=== PATIENT | female | born 1955 | race Caucasian/White ===

== ENCOUNTER 2018-08-08 17:16 | Emergency (ER) | payer OTHER ==
--- NOTE | 2018-08-08 17:42 | PDOC ---
Rapid Medical Evaluation Chief Complaint: Urinary Problem Time Seen by Provider: 08/08/18 17:40 Medical Evaluation: 08/08/18 17:41 I have performed a brief in-person evaluation of this patient. The patient presents with a CC of: dysuria HPI: Pt is a 62 YO female who complains of dysuria x 3 days. Denies hx of UTIs. Pertinent PE: Skin: Clear Lungs: Clear Heart: RRR Abd: Soft nontender MS. Moves all extremities Neuro: Alert Psych: Age appropriate. I have ordered the following: UA and UC The patient will proceed to [facility] for further evaluation. Discharge Disposition - Diagnosis Urinary tract infection Qualifiers: Urinary tract infection type: site unspecified Hematuria presence: without hematuria Qualified Code(s): N39.0 - Urinary tract infection, site not specified - Referrals - Patient Instructions - Post Discharge Activity
[2018-08-08 17:52] VITALS: BP 133/81; PULSE 74; TEMP 99.4; BMI 31.9
[2018-08-08] MEDS ORDERED: PHENAZOPYRIDINE HCL 100 MG TABLET (FP) PO ONE (18:13)
[2018-08-08] MEDS ORDERED: PHENAZOPYRIDINE HCL 100 MG TABLET (FP) ONE (18:15)
--- NOTE | 2018-08-08 18:19 | PDOC ---
History of Present Illness - General Chief Complaint: Urinary Problem Stated Complaint: URINARY PROBLEM Time Seen by Provider: 08/08/18 17:40 History Source: Patient Exam Limitations: Clinical Condition - History of Present Illness Initial Comments: 08/08/18 18:13 Patient with history of hypertension, hypothyroidism and hepatitis present with complaint of three-day history of urinary frequency, burning with urination and urgency. Patient also requests refill of her medication as she just moved from [place] of town and does not have a PCP to fill her home medication. Patient denies fever, chills, back pain, nausea or vomiting Timing/Duration: other (3 days) Past History - Past Medical History Allergies/Adverse Reactions: Allergies Allergy/AdvReac Type Severity Reaction Status Date / Time aspirin Allergy Verified 08/08/18 17:41 Penicillins Allergy Verified 08/08/18 17:41 Home Medications: Ambulatory Orders Amlodipine Besylate [Norvasc -] 5 mg PO DAILY #60 tablet 08/08/18 Azathioprine [Imuran] 50 mg PO DAILY 1 Days #60 tablet 08/08/18 Ciprofloxacin HCl [Cipro] 500 mg PO BID 5 Days #10 tablet 08/08/18 Levothyroxine [Synthroid -] 75 mcg PO DAILY 1 Days #30 tablet 08/08/18 Losartan/Hydrochlorothiazide [Losartan-Hctz 100-25 mg Tab] 1 each PO DAILY 1 Days #60 tablet 08/08/18 Metoprolol Succinate [Toprol Xl] 200 mg PO DAILY 1 Days #60 tab.er.24h 08/08/18 Phenazopyridine HCl [Pyridium] 100 mg PO TID 2 Days #6 tablet 08/08/18 - Suicide/Smoking/Psychosocial Hx Smoking History: Never smoked Review of Systems - Review of Systems Able to Perform ROS?: Yes Is the patient limited Swedish proficient: No Constitutional: No: Chills, Fever HEENTM: No: Symptoms Reported Respiratory: No: Symptoms reported Cardiac (ROS): No: Symptoms Reported ABD/GI: No: Symptoms Reported, Nausea, Vomiting : Yes: See HPI, Burning, Dysuria, Frequency, Urgency. No: Flank Pain, Hematuria, Incontinence Musculoskeletal: No: Back Pain All Other Systems: Reviewed and Negative *Physical Exam - Vital Signs Last Vital Signs Temp Pulse Resp BP Pulse Ox 99.4 F 74 19 133/81 96 08/08/18 17:41 08/08/18 17:41 08/08/18 17:41 08/08/18 17:41 08/08/18 17:41 - Physical Exam General Appearance: Yes: Nourished, Appropriately Dressed. No: Apparent Distress HEENT: positive: Normal ENT Inspection Neck: positive: Supple Respiratory/Chest: positive: Lungs Clear. negative: Respiratory Distress, Accessory Muscle Use Cardiovascular: positive: Regular Rhythm, Regular Rate Gastrointestinal/Abdominal: positive: Flat, Soft. negative: Organomegaly Musculoskeletal: positive: Normal Inspection. negative: CVA Tenderness Extremity: positive: Normal Inspection Integumentary: positive: Normal Color Neurologic: positive: Fully Oriented, Normal Mood/Affect, Normal Response Moderate Sedation - Procedure Monitoring Vital Signs: Procedure Monitoring Vital Signs Temperature 99.4 F 08/08/18 17:41 Pulse Rate 74 08/08/18 17:41 Respiratory Rate 19 08/08/18 17:41 Blood Pressure 133/81 08/08/18 17:41 O2 Sat by Pulse Oximetry (%) 96 08/08/18 17:41 Medical Decision Making - Medical Decision Making 08/08/18 18:17 Patient present with complaint of three-day history of urinary frequency, dysuria, urgency and burning with urination. Patient also requests refill of her home medication clinical exam unremarkable. UA/ Ucx sent. Patient afebrile 08/08/18 19:24 UA shows no acute findings except ketones. patient will be discharged home on cipro and pyridium pending urine culture. Rx for home meds also sent and referral for PCP given to patient to establish care *DC/Admit/Observation/Transfer Diagnosis at time of Disposition: Encounter for medication refill Urinary tract infection Qualifiers: Urinary tract infection type: site unspecified Hematuria presence: without hematuria Qualified Code(s): N39.0 - Urinary tract infection, site not specified - Discharge Dispostion Disposition: HOME Condition at time of disposition: Stable Decision to Admit order: No - Prescriptions Prescriptions: Amlodipine Besylate [Norvasc -] 5 mg PO DAILY #60 tablet Azathioprine [Imuran] 50 mg PO DAILY 1 Days #60 tablet Ciprofloxacin HCl [Cipro] 500 mg PO BID 5 Days #10 tablet Levothyroxine [Synthroid -] 75 mcg PO DAILY 1 Days #30 tablet Losartan/Hydrochlorothiazide [Losartan-Hctz 100-25 mg Tab] 1 each PO DAILY 1 Days #60 tablet Metoprolol Succinate [Toprol Xl] 200 mg PO DAILY 1 Days #60 tab.er.24h Phenazopyridine HCl [Pyridium] 100 mg PO TID 2 Days #6 tablet - Referrals Referrals: Katie Malone MD [Staff Physician] - - Patient Instructions Printed Discharge Instructions: DI for Urinary Tract Infection (UTI) Additional Instructions: take medications as prescribed. increase fluid intake. follow-up with referred PCP to establish care - Post Discharge Activity
[2018-08-08 18:38] LABS: URINE APPEARANCE CLEAR; URINE BILIRUBIN NEGATIVE (<2.0 mg/dL); URINE COLOR DKYELLOW; URINE GLUCOSE (UA) NEGATIVE (NEGATIVE); URINE KETONE TRACE (NEGATIVE); URINE LEUK ESTERASE NEGATIVE (NEGATIVE); URINE NITRITE NEGATIVE (NEGATIVE); URINE PROTEIN 2+ (NEGATIVE)
[2018-08-08 18:40] LABS: EPI CELLS RARE /HPF (FEW); URINE HYALINE CAST 11 /lpf; URINE MUCUS RARE
== END 2018-08-08 19:45 | disposition home or self-care (01) ==
LOC: JERFT 17:16 → JER 17:16 → JERFT 19:45
DX: N39.0 Urinary tract infection, site not specified (principal); I10 Essential (primary) hypertension; E03.9 Hypothyroidism, unspecified; K75.9 Inflammatory liver disease, unspecified
CPT/HCPCS: 81003; 81015; 87086; 99281-25

== ENCOUNTER 2018-12-31 09:31 | Emergency (ER) | payer OTHER ==
[2018-12-31 09:44] VITALS: TEMP 97.9; BMI 30.6
[2018-12-31] MEDS ORDERED: ONDANSETRON 4 MG/2 ML VIAL IVPUSH ONE (10:40)
[2018-12-31] MEDS ORDERED: FAMOTIDINE 20 MG/50 ML IVPB 20 MG/50 ML MG IVPB ONE ×2 (10:40→10:54)
[2018-12-31] MEDS ORDERED: SODIUM CHLORIDE 1,000 ML IV STA (10:41)
--- NOTE | 2018-12-31 10:41 | PDOC ---
History of Present Illness - General Chief Complaint: Nausea/Vomiting Stated Complaint: VOMITING Time Seen by Provider: 12/31/18 10:32 History Source: Patient - History of Present Illness Initial Comments: 12/31/18 11:03 63f with pmh of hypertension, hypothyroidism, cholecysteectomy, hysterectomy, GERD and recent liver inflammation presents to the ED with numerous episodes of vomiting and epigastric pain since 5pm, yesterday. The pain is sharp and radiates bilaterally along her ribs. She tried to take her omeprazole this morning but couldn't keep it down. Denies dysuria, contipation, diarrhea, shortness of breath, fever. Past History - Past Medical History Allergies/Adverse Reactions: Allergies Allergy/AdvReac Type Severity Reaction Status Date / Time aspirin Allergy Verified 12/31/18 09:41 Penicillins Allergy Verified 12/31/18 09:41 Home Medications: Ambulatory Orders Levothyroxine [Synthroid -] 75 mcg PO DAILY 1 Days #30 tablet 08/08/18 Azathioprine [Imuran] 200 mg PO DAILY 12/31/18 Ciprofloxacin [Cipro -] 500 mg PO Q12H 7 Days #14 tablet 12/31/18 Fluticasone Propionate [Flonase Allergy Relief] 1 ml IH BID 12/31/18 Lisinopril 10 mg PO DAILY 12/31/18 Metoprolol Succinate [Toprol Xl] 100 mg PO BID 12/31/18 Omeprazole 20 mg PO BID 12/31/18 metroNIDAZOLE [Metronidazole] 500 mg PO BID 7 Days #14 tablet 12/31/18 CVA: No COPD: No CHF: No DVT: No - Immunization History Immunization Up to Date: Yes - Suicide/Smoking/Psychosocial Hx Smoking History: Never smoked Information on smoking cessation initiated: No Hx Alcohol Use: No Drug/Substance Use Hx: No Review of Systems - Review of Systems Able to Perform ROS?: Yes Is the patient limited Latvian proficient: No Constitutional: No: Symptoms Reported HEENTM: No: Symptoms Reported Respiratory: No: Symptoms reported Cardiac (ROS): No: Symptoms Reported ABD/GI: Yes: See HPI : No: Symptoms Reported Musculoskeletal: No: Symptoms Reported *Physical Exam - Vital Signs Last Vital Signs Temp Pulse Resp BP Pulse Ox 97.9 F 98 H 17 103/81 97 12/31/18 09:41 12/31/18 09:41 12/31/18 09:41 12/31/18 09:41 12/31/18 09:41 - Physical Exam General Appearance: Yes: Nourished, Appropriately Dressed, Mild Distress HEENT: positive: EOMI, MARISEL, Normal ENT Inspection Respiratory/Chest: positive: Lungs Clear, Normal Breath Sounds. negative: Chest Tender, Respiratory Distress Cardiovascular: positive: Regular Rhythm, Regular Rate, S1, S2 Gastrointestinal/Abdominal: positive: Normal Bowel Sounds, Tender (epigastric tenderness), Guarding. negative: Rebound Musculoskeletal: positive: Normal Inspection. negative: CVA Tenderness Extremity: positive: Normal Capillary Refill, Normal Inspection, Normal Range of Motion Integumentary: positive: Normal Color, Dry, Warm. negative: Jaundice Neurologic: positive: Fully Oriented, Alert, Normal Mood/Affect, Normal Response , Motor Strength 01/06 ED Treatment Course - LABORATORY CBC & Chemistry Diagram: 12/31/18 11:12 12/31/18 11:12 Medical Decision Making - Medical Decision Making 12/31/18 11:13 63 with epigastric pain and vomiting. GERd/dyspepsia vs LA vs PE vs SBO Patient has history of GERD and decribe the pain as sharp and burning although she doesn';t usually presents with those symptoms. Will get labs and start patient on fluids and pepcid. In addition we will need to rule out inferior LA with ekg and trops. Low suspicion for PE due to low wells score criteria. Will r/o sbo with ct abdomen and pelvis 12/31/18 12:17 EKG: Normal sinus rhythm, left anterior fascicular block, possible anterolateral infarct, age undetermined. 12/31/18 15:16 Ct abdomen pelvis: ascites presents, inflammation of the liver and thickening/ inflamation of the small bowel significant for colitis. Spoke to machine precision etcher for Dr. Navarro who recommended Patient feel better on reexamination. ok to go home. treating the colitis with abx outpatient. Will see the patient in the office. She is to call to make appointment. *DC/Admit/Observation/Transfer Diagnosis at time of Disposition: Colitis - Discharge Dispostion Disposition: HOME Condition at time of disposition: Improved Decision to Admit order: No - Prescriptions Prescriptions: Ciprofloxacin [Cipro -] 500 mg PO Q12H 7 Days #14 tablet metroNIDAZOLE [Metronidazole] 500 mg PO BID 7 Days #14 tablet - Referrals Referrals: Hector Guevara MD [Primary Care Provider] - Mario Navarro DO [Staff Physician] - - Patient Instructions Printed Discharge Instructions: DI for Colitis Additional Instructions: Follow up with your technician assistant Dr. Navarro. Call for an appointment tomorrow within one to two weeks. Come back to the emergency department for any new, worsening or concerning symptoms. Print Language: MOHAWK - Post Discharge Activity
[2018-12-31] MEDS ORDERED: ONDANSETRON 4 MG/2 ML VIAL ONE (10:54)
--- NOTE | 2018-12-31 10:54 | PDOC ---
Documentation entered by Benjamin Guzman SCRIBE, acting as scribe for Chace Méndez MD. Chace Méndez MD: This documentation has been prepared by the Thomas charlton Nirvannie, SCRIBE, under my direction and personally reviewed by me in its entirety. I confirm that the documentation accurately reflects all work, treatment, procedures, and medical decision making performed by me. Attending Attestation - Resident Resident Name: Jered Vanessa - ED Attending Attestation I have performed the following: I have examined & evaluated the patient, The case was reviewed & discussed with the resident, I agree w/resident's findings & plan - HPI HPI: 12/31/18 11:07 CC: Abdominal pain with nausea and vomiting. HPI: The patient is a 63 year old female, with a significant past medical history of hypertension, hypothyroidism and hepatitis, who presents to the emergency department with, 1.5 days of epigastric pain with associated nausea and vomiting. As per patient, her symptoms onset yesterday at 5pm and is described a 9/10, waxing and waning pain. She denies recent fevers, chills, headache or dizziness. She denies recent diarrhea or constipation. She denies recent dysuria, frequency, urgency or hematuria. She denies recent chest pain or shortness of breath. Allergies: Aspirins, penicillins. Past surgical history: Cholecystectomy and hysterectomy. Primary Care Physician: Dr. Hector Guevara GI: Dr. Navarro - Physicial Exam PE: 12/31/18 11:07 Vitals: Triage vital signs reviewed General Appearance: No acute distress, well nourished, well developed Head: Atraumatic Neck: Supple; No nuchal rigidity Chest Wall: Nontender Cardiac: Regular rate and rhythm, no murmurs, no rubs, no gallops Lungs: Clear to auscultation bilateral, good air movement bilaterally Abdomen: +Diffuse upper abdominal tenderness. Soft, nondistended. Genitourinary: Exam deferred Rectal: Exam deferred Extremities: Full range of motion to all extremities, no cyanosis, clubbing, or edema Skin: Warm and dry, no rashes or lesions, no rash, no petechiae Neuro: AOX3; Cranial Nerves 2-12 grossly intact, Strength intact to all extremities, Sensation intact to all extremities, gait normal Psych: Normal mood, normal affect - Medical Decision Making 12/31/18 11:13 63 year old female, with a significant past medical history of hypertension, hypothyroidism and hepatitis, who presents to the emergency department with, 1.5 days of epigastric pain with associated nausea and vomiting. Plan is to: Labs EKG Urine CT Abdomen Fluids Pain medication Anti-nausea medication 12/31/18 17:38 Reevaluation patient feels much better now tolerating fluids by mouth CAT scan demonstrates colitis We'll discharge home with Mili Zuñiga patient will follow up with gastroenterology within 1 week Findings, the need for follow-up and strict return instructions discussed patient.
[2018-12-31] MEDS ORDERED: ACETAMINOPHEN 1000 MG/100 ML VIAL (NON FORMULARY) IVPB ONE (11:02)
[2018-12-31 11:31] LABS: BASO % 0.7 % (0-2.0); EOS % 0.1 % (0-4.5); HEMATOCRIT 46.5 % (32.4-45.2); HEMOGLOBIN 16.1 GM/dL (10.7-15.3); LYMPH % 13.7 % (8-40); MCH 31.1 pg (25.7-33.7); MCHC 34.7 g/dl (32.0-36.0); MEAN CELL VOLUME 89.8 fl (80-96); MEAN PLT VOLUME 8.7 fl (7.5-11.1); MONO % 6.5 % (3.8-10.2); PLATELET COUNT 362 K/MM3 (134-434); RBC 5.18 M/mm3 (3.60-5.2); RDW 14.9 % (11.6-15.6); WHITE BLOOD COUNT 10.6 K/mm3 (4.0-10.0)
[2018-12-31] MEDS ORDERED: ACETAMINOPHEN INJECTION 100 ML IVPB ONE (11:37)
[2018-12-31 11:50] VITALS: BP 125/80; PULSE 80
[2018-12-31 12:21] LABS: ALBUMIN 3.6 g/dl (3.4-5.0); ALK PHOS 91 U/L (45-117); ANION GAP 9 MMOL/L (8-16); BILIRUBIN,TOTAL 1.3 mg/dL (0.2-1); BLOOD UREA NITROGEN 14 mg/dL (7-18); CALCIUM 9.8 mg/dL (8.5-10.1); CHLORIDE 103 mmol/L (98-107); CO2 24 mmol/L (21-32); CREATININE 0.7 mg/dL (0.55-1.3); GLUCOSE,RANDOM 106 mg/dL (74-106); LIPASE 124 U/L (73-393); POTASSIUM 4.2 mmol/L (3.5-5.1); SGOT/AST 56 U/L (15-37); SGPT/ALT 59 U/L (13-61); SODIUM 136 mmol/L (136-145); TOT PROT 8.4 g/dl (6.4-8.2)
--- NOTE | 2019-01-01 14:34 | EKG ---
Test Reason : Blood Pressure : / mmHG Vent. Rate : 088 BPM Atrial Rate : 088 BPM P-R Int : 154 ms QRS Dur : 086 ms QT Int : 402 ms P-R-T Axes : 038 -46 045 degrees QTc Int : 486 ms NORMAL SINUS RHYTHM LEFT ANTERIOR FASCICULAR BLOCK POSSIBLE ANTEROLATERAL INFARCT , AGE UNDETERMINED ABNORMAL ECG NO PREVIOUS ECGS AVAILABLE Confirmed by MD KIA, FARHANA ([id number]) on 01/01/2019 2:33:59 PM Referred By: Confirmed By:FARHANA ADAM MD
== END 2018-12-31 15:38 | disposition home or self-care (01) ==
LOC: JER 09:31
PROC: 3E0337Z Introduction of Electrolytic and Water Balance Substance into Peripheral Vein, Percutaneous Approach (ICD-10-PCS; principal; 2018-12-31)
PROC: 3E033GC Introduction of Other Therapeutic Substance into Peripheral Vein, Percutaneous Approach (ICD-10-PCS; 2018-12-31)
PROC: 3E033NZ Introduction of Analgesics, Hypnotics, Sedatives into Peripheral Vein, Percutaneous Approach (ICD-10-PCS; 2018-12-31)
PROC: 3E033GC Introduction of Other Therapeutic Substance into Peripheral Vein, Percutaneous Approach (ICD-10-PCS; 2018-12-31)
DX: K52.9 Noninfective gastroenteritis and colitis, unspecified (principal); K21.9 Gastro-esophageal reflux disease without esophagitis; I10 Essential (primary) hypertension; E03.9 Hypothyroidism, unspecified; K75.9 Inflammatory liver disease, unspecified; Z88.0 Allergy status to penicillin; Z88.6 Allergy status to analgesic agent
CPT/HCPCS: 36415; 74177-TC; 80053; 83690; 84484; 85025; 93005; 93010; 96361; 96365; 96375; 99284-25; J0131; J7030

== ENCOUNTER 2019-02-28 13:46 | Emergency (ER) | payer OTHER ==
[2019-02-28] MEDS ORDERED: DIPHTH,PERTUSS(ACELL),TET 0.5 ML DISP.SYRIN IM ONE ×2 (13:51→14:03)
--- NOTE | 2019-02-28 13:54 | PDOC ---
Rapid Medical Evaluation Chief Complaint: Pain Time Seen by Provider: 02/28/19 13:49 Medical Evaluation: Allergies Allergy/AdvReac Type Severity Reaction Status Date / Time aspirin Allergy Verified 12/31/18 09:41 Penicillins Allergy Verified 12/31/18 09:41 02/28/19 13:49 I have performed a brief in-person evaluation of this patient. The patient presents with a chief complaint of: struck right great toe on metal door Pertinent physical exam findings: toenail avulsed. able to bend I have ordered the following: Xray great toe / Boostrix The patient will proceed to the ED for further evaluation. 02/28/19 13:52 02/28/19 13:53 Discharge Disposition - Diagnosis Toe injury - Referrals - Patient Instructions - Post Discharge Activity
[2019-02-28 13:56] VITALS: BP 187/97; PULSE 64; TEMP 97.8; BMI 30.1
--- NOTE | 2019-02-28 14:42 | PDOC ---
History of Present Illness - General Chief Complaint: Pain Stated Complaint: INJURY Time Seen by Provider: 02/28/19 13:49 History Source: Patient - History of Present Illness Initial Comments: 02/28/19 14:42 63 year old female c/o right great toe nail partial avulsion , report stubbing the toe on the door. seen by pcp and was given cephalexin today. [facility]. no pmhx tetanus not up to date/ Past History - Past Medical History Allergies/Adverse Reactions: Allergies Allergy/AdvReac Type Severity Reaction Status Date / Time aspirin Allergy Verified 02/28/19 13:51 Penicillins Allergy Verified 02/28/19 13:51 Home Medications: Ambulatory Orders Levothyroxine [Synthroid -] 75 mcg PO DAILY 1 Days #30 tablet 08/08/18 Azathioprine [Imuran] 200 mg PO DAILY 12/31/18 Ciprofloxacin [Cipro -] 500 mg PO Q12H 7 Days #14 tablet 12/31/18 Fluticasone Propionate [Flonase Allergy Relief] 1 ml IH BID 12/31/18 Lisinopril 10 mg PO DAILY 12/31/18 Metoprolol Succinate [Toprol Xl] 100 mg PO BID 12/31/18 Omeprazole 20 mg PO BID 12/31/18 metroNIDAZOLE [Metronidazole] 500 mg PO BID 7 Days #14 tablet 12/31/18 Bacitracin - [Bacitracin Topical Ointment -] 1 applic TP BID #1 tube 02/28/19 CVA: No COPD: No CHF: No DVT: No - Immunization History Immunization Up to Date: Yes - Suicide/Smoking/Psychosocial Hx Smoking History: Never smoked Information on smoking cessation initiated: No Hx Alcohol Use: No Drug/Substance Use Hx: No Review of Systems - Review of Systems Able to Perform ROS?: Yes Is the patient limited Serbian proficient: No Constitutional: No: Symptoms Reported, See HPI, Chills, Diaphoresis, Fever, Loss of Appetite, Malaise, Night Sweats, Weakness, Weight Stable, Unintentional Wgt. Loss, Unexplained wgt Loss, Other *Physical Exam - Vital Signs Last Vital Signs Temp Pulse Resp BP Pulse Ox 97.8 F 64 17 187/97 H 96 02/28/19 13:51 02/28/19 13:51 02/28/19 13:51 02/28/19 13:51 02/28/19 13:51 - Physical Exam General Appearance: Yes: Appropriately Dressed Gastrointestinal/Abdominal: positive: Soft. negative: Tender Extremity: positive: Normal Capillary Refill, Normal Inspection, Normal Range of Motion, Other (+ partial nail avulsion of the great toe. ) Integumentary: positive: Normal Color, Dry, Warm Neurologic: positive: Fully Oriented, Alert, Normal Mood/Affect ED Treatment Course - Medications Given in the ED: ED Medications Discontinued Medications Generic Name Dose Route Start Last Admin Trade Name Freq PRN Reason Stop Dose Admin Diphtheria/Tetanus/Acell Pertussis 0.5 ml 02/28/19 13:51 02/28/19 14:05 Boostrix - IM 02/28/19 13:52 0.5 ml ONCE ONE Administration Progress Note - Progress Note Progress Note: A: toe nail avulsion injury P: xray boostrix bacitracin order tracer follow up *DC/Admit/Observation/Transfer Diagnosis at time of Disposition: Toe injury Qualifiers: Encounter type: initial encounter Laterality: right Qualified Code(s): S99.921A - Unspecified injury of right foot, initial encounter - Discharge Dispostion Disposition: HOME - Prescriptions Prescriptions: Bacitracin - [Bacitracin Topical Ointment -] 1 applic TP BID #1 tube - Referrals Referrals: Jeff Brambila MD [Staff Physician] - 24 hours Joe Toussaint DPM [Staff Physician] - 24 hours - Patient Instructions Printed Discharge Instructions: DI for Nail Avulsion Injury Additional Instructions: apply bacitracin to the nail twice a day. continue cephalexin as prescribed by your doctor follow up with a order tracer as soon as possible. - Post Discharge Activity Forms/Work/School Notes: Back to Work
== END 2019-02-28 15:05 | disposition home or self-care (01) ==
LOC: JERFT 13:46
PROC: 3E0234Z Introduction of Serum, Toxoid and Vaccine into Muscle, Percutaneous Approach (ICD-10-PCS; principal; 2019-02-28)
DX: S91.201A Unspecified open wound of right great toe with damage to nail, initial encounter (principal); W22.8XXA Striking against or struck by other objects, initial encounter; Y93.89 Activity, other specified; Y92.89 Other specified places as the place of occurrence of the external cause; Y99.8 Other external cause status
CPT/HCPCS: 73660-TC-FY; 90715; 99281-25

== ENCOUNTER 2020-06-01 10:24 | Emergency (ER) | payer OTHER ==
[2020-06-01 10:35] VITALS: TEMP 97.4; BMI 27.4
--- NOTE | 2020-06-01 10:51 | PDOC ---
History of Present Illness - General Chief Complaint: Pain, Acute Stated Complaint: ABD PAIN/DIARRHEA Time Seen by Provider: 06/01/20 11:00 History Source: Patient Exam Limitations: No Limitations - History of Present Illness Initial Comments: 06/01/20 11:36 64 y.o. taiwanese speaking F PMHx HTN, hypothyridism, GERD, SLE, cholecystectomy, hysterectomy presenting due to abdominal pain onset yesterday. Patient states she has been having 4-5 episodes of diarrhea daily. Pt normally has diarrhea but it has increased in frequency. Pt. stated the pain is located in the center of the abdomen and radiates to her back, she came in today due to her stools turning black this morning. She feels nauseas and dizzy but denies chest pain, SOB, headache, vomiting. Pt states she took pepto bismol yesterday but it provided little relief. Pt had a recent endosopy that had 7 polyps cauterized. Wellness Assistant # [id number] PCP: Dr. colon PMHx: HTN, hypothyridism, GERD, SLE PSH: cholecystectomy, hysterectomy Meds: In Chart Allergies: Asprin, Penecillin Is this a multiple visit Asthma Patient?: No Timing/Duration: 24 hours Past History - Medical History Allergies/Adverse Reactions: Allergies Allergy/AdvReac Type Severity Reaction Status Date / Time aspirin Allergy Verified 06/01/20 10:29 Penicillins Allergy Verified 06/01/20 10:29 Home Medications: Ambulatory Orders Levothyroxine [Synthroid -] 75 mcg PO DAILY 1 Days #30 tablet 08/08/18 Azathioprine [Imuran] 200 mg PO DAILY 12/31/18 Albuterol Sulfate Inhaler - [Ventolin Hfa Inhaler -] 1 - 2 inh PO Q4H PRN 06/01/20 Bismuth Subsalicylate [Pepto-Bismol -] 524 mg PO ONCE 06/01/20 Hydroxychloroquine So4 [Plaquenil -] 200 mg PO BID 06/01/20 Lisinopril/Hydrochlorothiazide [Lisinopril-Hctz 20-25 mg Tab] 1 each PO DAILY 06/01/20 Metoprolol Tartrate [Lopressor -] 25 mg PO BID 06/01/20 Pantoprazole Sodium [Protonix -] 40 mg PO DAILY 06/01/20 CVA: No COPD: No CHF: No DVT: No Liver Disease: Yes Other medical history: LUPUS, - Immunization History Immunization Up to Date: Yes - Psycho-Social/Smoking History Smoking History: Never smoked - Substance Abuse Hx (Audit-C & DAST Scrn) How often the patient has a drink containing alcohol: Never Score: In Men: 4 or > Positive; In Women: 3 or > Positive: 0 Screen Result (Pos requires Nsg. Audit-10AR): Negative In the last yr the pt used illegal drug/Rx for NonMed reason: No Score: Yes response is considered Positive: 0 Screen Result (Positive result requires Nsg. DAST-10): Negative Review of Systems - Review of Systems Able to Perform ROS?: Yes Is the patient limited Kyrgyz proficient: Yes Constitutional: No: Chills, Fever HEENTM: No: Blurred Vision, Double Vision Respiratory: No: Cough, Shortness of Breath Cardiac (ROS): No: Chest Pain, Lightheadedness ABD/GI: Yes: Diarrhea, Nausea, Poor Appetite. No: Constipated, Vomiting : No: Burning, Dysuria Musculoskeletal: No: Back Pain, Muscle Weakness Integumentary: No: Dryness, Erythema Neurological: Yes: Dizziness. No: Headache, Numbness, Tingling Hematologic/Lymphatic: No: Easy Bleeding, Easy Bruising *Physical Exam - Vital Signs Last Vital Signs Temp Pulse Resp BP Pulse Ox 97.4 F L 82 18 166/88 100 06/01/20 10:29 06/01/20 10:29 06/01/20 10:29 06/01/20 10:06/01/20 10:29 - Physical Exam General Appearance: Yes: Nourished, Appropriately Dressed. No: Apparent Distress Respiratory/Chest: positive: Lungs Clear, Normal Breath Sounds. negative: Chest Tender, Respiratory Distress, Accessory Muscle Use, Crackles, Rales, Stridor, Wheezing Cardiovascular: positive: Regular Rhythm, Regular Rate. negative: JVD, Murmur Gastrointestinal/Abdominal: positive: Normal Bowel Sounds, Tender, Flat, Soft, Tenderness (midepigastic). negative: Organomegaly, Pulsatile Mass, Guarding, Rebound Rectal Exam: positive: normal exam, normal rectal tone Musculoskeletal: positive: Normal Inspection. negative: CVA Tenderness Integumentary: positive: Normal Color, Dry, Warm Neurologic: positive: Fully Oriented, Alert, Normal Mood/Affect, Normal Response ED Treatment Course - LABORATORY CBC & Chemistry Diagram: 06/01/20 11:30 06/01/20 11:30 Medical Decision Making - Medical Decision Making 06/01/20 11:43 64 y.o. taiwanese speaking F PMHx HTN, hypothyridism, GERD, SLE, cholecystectomy, hysterectomy presenting due to abdominal pain. DDx: fat malabsorption, viral/enteric pathogen, pancreatitis, gastritis, CO Labs: WBC 3.6, Hgb 12.9, Hct 38.1, Tbili 1.1, Trops <0.02, Lipase 142 Rectal exam: no masses felt, stool color pale brown. Dispo: Home 06/01/20 12:49 Discharge - Discharge Information Problems reviewed: Yes Clinical Impression/Diagnosis: Abdominal pain Qualifiers: Abdominal location: epigastric Qualified Code(s): R10.13 - Epigastric pain Condition: Improved Disposition: HOME - Admission No - Follow up/Referral - Patient Discharge Instructions Patient Printed Discharge Instructions: DI for Abdominal Pain-Adult Additional Instructions: You were seen in the emergency department for abdominal pain. You received tylenol, sucralfate, famotidine and Maalox . Your labs and imaging showed no signs of infection, hepatitis, infection, bleeding throughout the gastrointestinal tract. This abdominal pain can be caused by excess fats in the diet. As such you were treated for abdominal pain. You were given sucralfate, famotidine, tylenol and Maalox in the emergency de partment. Please follow up with your primary care physician regarding your visit to the emergency department. If you experience profound abdominal pain, chest pain, shortness of breath, discolored stool please return to the emergency department or call 911. . Print Language: ROMANIAN - Post Discharge Activity
[2020-06-01] MEDS ORDERED: LACTATED RINGERS SOLUTION 1000 ML INFUS.BAG IV ONE (11:30)
[2020-06-01] MEDS ORDERED: MAG HYDROX/AL HYDROX/SIMETH 30 ML UNIT-DOSE CUP PO ONE (11:32)
[2020-06-01] MEDS ORDERED: FAMOTIDINE 20 MG/50 ML IVPB 20 MG/50 ML MG IVPB ONE ×2 (11:35→11:49)
[2020-06-01] MEDS ORDERED: ACETAMINOPHEN 1000 MG/100 ML VIAL (NON FORMULARY) IVPB ONE (11:35)
[2020-06-01] MEDS ORDERED: ACETAMINOPHEN INJECTION 100 ML IVPB ONE (11:48)
[2020-06-01 12:11] LABS: BASO % 1.6 % (0-2.0); EOS % 2.7 % (0-4.5); HEMATOCRIT 38.1 % (32.4-45.2); HEMOGLOBIN 12.9 GM/dL (10.7-15.3); LYMPH % 18.8 % (8-40); MCH 29.7 pg (25.7-33.7); MCHC 33.9 g/dl (32.0-36.0); MEAN CELL VOLUME 87.5 fl (80-96); MEAN PLT VOLUME 8.6 fl (7.5-11.1); NEUT % 61.9 % (42.8-82.8); PLATELET COUNT 251 K/MM3 (134-434); RBC 4.35 M/mm3 (3.60-5.2); RDW 15.1 % (11.6-15.6); WHITE BLOOD COUNT 3.6 K/mm3 (4.0-10.0)
--- NOTE | 2020-06-01 12:20 | PDOC ---
Documentation entered by Alvina Lomeli SCRIBE, acting as scribe for Germán Knutson MD. Germán Knutson MD: This documentation has been prepared by the Yani charlton Xhesika, SCRIBE, under my direction and personally reviewed by me in its entirety. I confirm that the documentation accurately reflects all work, treatment, procedures, and medical decision making performed by me. Attending Attestation - Resident Resident Name: James Washington - ED Attending Attestation I have performed the following: I have examined & evaluated the patient, The case was reviewed & discussed with the resident, I agree w/resident's findings & plan, Exceptions are as noted - HPI HPI: 06/01/20 10:50 The patient is a 64 year old female, with a significant past medical history of hypertension, hypothyroidism and hepatitis, who presents to the emergency department with 4 days of abdominal pain and diarrhea. Pt states she endorses chronic diarrhea since she had her gall bladder removed. Pt reports, the past few days she has been endorsing diarrhea more frequent than normal and today her stool was black. Pt reports dizziness since she came in. Pt denies being on any anticoagulants. Patient denies recent fevers, chills, headache or dizziness. She denies recent dysuria, frequency, urgency or hematuria. She denies recent chest pain or shortness of breath. Allergies: Aspirins, penicillins. Past surgical history: Cholecystectomy and hysterectomy. Primary Care Physician: Per patient, @ [address] [place] [address] - Physicial Exam PE: 06/01/20 12:15 GENERAL: Awake, alert, and fully oriented, in no acute distress EYES: PERRLA, EOMI, sclera anicteric, conjunctiva clear ENT: Oropharynx clear without exudates. Moist mucosa NECK: Normal ROM, supple, no lymphadenopathy, JVD, or masses LUNGS: Breath sounds equal, clear to auscultation bilaterally. No wheezes, and no crackles HEART: Regular rate and rhythm, normal S1 and S2, no murmurs, rubs or gallops ABDOMEN: Soft, mild epigastric ttp, normoactive bowel sounds. No guarding, no rebound. No masses EXTREMITIES: Normal range of motion, no edema. No clubbing or cyanosis. No cords, erythema, or tenderness NEUROLOGICAL: Normal speech, cranial nerves intact, equal strength and sensation b/l SKIN: Warm, Dry, normal turgor, no rashes or lesions noted. - Medical Decision Making 06/01/20 12:18 64yo F presents to the ED with epigastric discomfort, diarrhea, and 1 episode of dark stool Vitals unremarakble Exam with well appearing pt, mild epigastric ttp. Stool in rectal vault light brown DDx includes gastritis vs enteritis vs colitis vs pancreatitis vs atypical ACS presentation given epigastric pain EKG non ischemic Plan: -labs -UA -IVF, Gi cocktail -reassess Heart Score/ECG Review #1 06/01/20 12:16 EKG read and int by me: NSR, rate 71, normal axis and intervals, no ALLIE or TWI
--- OUTSIDE RECORDS SUMMARY | 2020-06-01 12:40 | XMS ---
:1955 Author Organization [facility] Care Team Providers Name Role Phone Osmar Santiago MD Unavailable Unavailable Pamela, Phillip BETANCOURT Unavailable Unavailable Pamela, Phillip BETANCOURT Unavailable Unavailable Pamela, Phillip BETANCOURT Unavailable Unavailable Pamela, Phillip BETANCOURT Unavailable Unavailable Pamela, Phillip BETANCOURT Unavailable Unavailable Pamela, Phililp BETANCOURT Unavailable Unavailable Pamela, Phillip BETANCOURT Unavailable Unavailable Pamela, Phillip BETANCOURT Unavailable Unavailable Pamela, Phillip BETANCOURT Unavailable Unavailable Pamela, Phillip BETANCOURT Unavailable Unavailable Pamela, Phillip BETANCOURT Unavailable Unavailable Pamela, Phillip BETANCOURT Unavailable Unavailable Pamela, Phillip BETANCOURT Unavailable Unavailable PERRY [phone] Sheron BETANCOURT Unavailable Unavailable Chance-Flavio, MD Unavailable Unavailable Chance-Flavio, MD Unavailable Unavailable Chance-Flavio, MD Unavailable Unavailable Chance-FlavioMD Unavailable Unavailable Chance-FlavioMD Unavailable Unavailable Chance-Flavio, MD Unavailable Unavailable Chance-Flavio, MD Unavailable Unavailable Chance-Flavio, MD Unavailable Unavailable Chance-FlavioMD Unavailable Unavailable Chance-FlavioMD Unavailable Unavailable Chance-FlavioMD Unavailable Unavailable Chance-FlavioMD Unavailable Unavailable Chance-FlavioMD Unavailable Unavailable Chance-Flavio, MD Unavailable Unavailable Chance-Flavio, MD Unavailable Unavailable Chance-Flavio, MD Unavailable Unavailable Chance-FlavioMD Unavailable Unavailable Chance-Flavio, MD Unavailable Unavailable Chance-Flavio, MD Unavailable Unavailable Chance-Flavio, MD Unavailable Unavailable Chance-Flavio, MD Unavailable Unavailable Chance-Flavio, MD Unavailable Unavailable Chance-Flavio, MD Unavailable Unavailable Chance-Flavio, MD Unavailable Unavailable Chance-Flavio, MD Unavailable Unavailable Chance-FlavioMD tram Unavailable Unavailable Chance-FlavioMD tram Unavailable Unavailable Chance-FlavioMD tram Unavailable Unavailable Chance-Flavio, MD Unavailable Unavailable Chance-Flavio, MD Unavailable Unavailable Chance-Flavio, MD Unavailable Unavailable Chance-FlavioMD tram Unavailable Unavailable Chance-Flavio, MD Unavailable Unavailable Chance-FlavioMD tram Unavailable Unavailable Chance-FlavioMD tram Unavailable Unavailable Chance-Flavio, MD Unavailable Unavailable Chance-FlavioMD tram Unavailable Unavailable Chance-FlavioMD tram Unavailable Unavailable Chance-FlavioMD tram Unavailable Unavailable Chance-FlavioMD tram Unavailable Unavailable Chance-FlavioMD tram Unavailable Unavailable Chance-FlavioMD tram Unavailable Unavailable Chance-Flavio, MD Unavailable Unavailable Chance-FlavioMD tram Unavailable Unavailable Chance-FlavioMD tram Unavailable Unavailable Chance-FlavioMD tram Unavailable Unavailable Chance-FlavioMD tram Unavailable Unavailable Chance-FlavioMD tram Unavailable Unavailable Chance-FlavioMD tram Unavailable Unavailable Chance-Flavio, MD Unavailable Unavailable Chance-Flavio, MD Unavailable Unavailable Chance-Flavio, MD Unavailable Unavailable Chance-Flavio, MD Unavailable Unavailable Chance-Flavio, MD Unavailable Unavailable Chance-Flavio, MD Unavailable Unavailable Chance-Flavio, MD Unavailable Unavailable Chance-Flavio, MD Unavailable Unavailable Chance-Flavio, MD Unavailable Unavailable Chance-Flavio, MD Unavailable Unavailable Chance-Flavio, MD Unavailable Unavailable Chance-Flavio, MD Unavailable Unavailable Chance-Flavio, MD Unavailable Unavailable Chance-Flavio, MD Unavailable Unavailable Chance-Flavio, MD Unavailable Unavailable Chance-Flavio, MD Unavailable Unavailable Chance-Flavio, MD Unavailable Unavailable Skipton, E MD Unavailable Unavailable Skipton, E MD Unavailable Unavailable Skipton, E MD Unavailable Unavailable Skipton, E MD Unavailable Unavailable Skipton, E MD Unavailable Unavailable Skipton, E MD Unavailable Unavailable Skipton, E MD Unavailable Unavailable Skipton, E MD Unavailable Unavailable Skipton, E MD Unavailable Unavailable Skipton, E MD Unavailable Unavailable Skipton, E MD Unavailable Unavailable Skipton, E MD Unavailable Unavailable Skipton, E MD Unavailable Unavailable Skipton, E MD Unavailable Unavailable Skipton, E MD Unavailable Unavailable Skipton, E MD Unavailable Unavailable Skipton, E MD Unavailable Unavailable Skipton, E MD Unavailable Unavailable Skipton, E MD Unavailable Unavailable Skipton, E MD Unavailable Unavailable Skipton, E MD Unavailable Unavailable Skipton, E MD Unavailable Unavailable Skipton, E MD Unavailable Unavailable Skipton, E MD Unavailable Unavailable Skipton, E MD Unavailable Unavailable Skipton, E MD Unavailable Unavailable Skipton, E MD Unavailable Unavailable Skipton, E MD Unavailable Unavailable Skipton, E MD Unavailable Unavailable Skipton, E MD Unavailable Unavailable Skipton, E MD Unavailable Unavailable Skipton, E MD Unavailable Unavailable Skipton, E MD Unavailable Unavailable Skipton, E MD Unavailable Unavailable Skipton, E MD Unavailable Unavailable Skipton, E MD Unavailable Unavailable Skipton, E MD Unavailable Unavailable Skipton, E MD Unavailable Unavailable Skipton, E MD Unavailable Unavailable Skipton, E MD Unavailable Unavailable Skipton, E MD Unavailable Unavailable Skipton, E MD Unavailable Unavailable Skipton, E MD Unavailable Unavailable Skipton, E MD Unavailable Unavailable Skipton, E MD Unavailable Unavailable Skipton, E MD Unavailable Unavailable Skipton, E MD Unavailable Unavailable Skipton, E MD Unavailable Unavailable Skipton, E MD Unavailable Unavailable Skipton, E MD Unavailable Unavailable Jeff, E PA Unavailable Unavailable Jeff, E PA Unavailable Unavailable [place], E PA Unavailable Unavailable Jeff, E PA Unavailable Unavailable [place], E PA Unavailable Unavailable Jeff, E PA Unavailable Unavailable Jeff, E PA Unavailable Unavailable Jeff, E PA Unavailable Unavailable Jeff, E PA Unavailable Unavailable [place], E PA Unavailable Unavailable [place], E PA Unavailable Unavailable Jeff, E PA Unavailable Unavailable [place], E PA Unavailable Unavailable Dille, E DDS Unavailable Unavailable Dille, E DDS Unavailable Unavailable Dille, E DDS Unavailable Unavailable CHANDRALA, K MD Unavailable Unavailable CHANDRALA, K MD Unavailable Unavailable CHANDRALA, K MD Unavailable Unavailable CHANDRALA, K MD Unavailable Unavailable CHANDRALA, K MD Unavailable Unavailable CHANDRALA, K MD Unavailable Unavailable CHANDRALA, K MD Unavailable Unavailable CHANDRALA, K MD Unavailable Unavailable CHANDRALA, K MD Unavailable Unavailable CHANDRALA, K MD Unavailable Unavailable CHANDRALA, K MD Unavailable Unavailable CHANDRALA, K MD Unavailable Unavailable CHANDRALA, K MD Unavailable Unavailable CHANDRALA, K MD Unavailable Unavailable CHANDRALA, K MD Unavailable Unavailable CHANDRALA, K MD Unavailable Unavailable CHANDRALA, K MD Unavailable Unavailable CHANDRALA, K MD Unavailable Unavailable CHANDRALA, K MD Unavailable Unavailable CHANDRALA, K MD Unavailable Unavailable CHANDRALA, K MD Unavailable Unavailable CHANDRALA, K MD Unavailable Unavailable CHANDRALA, K MD Unavailable Unavailable CHANDRALA, K MD Unavailable Unavailable CHANDRALA, K MD Unavailable Unavailable CHANDRALA, K MD Unavailable Unavailable CHANDRALA, K MD Unavailable Unavailable CHANDRALA, K MD Unavailable Unavailable CHANDRALA, K MD Unavailable Unavailable CHANDRALA, K MD Unavailable Unavailable Ignacio Unavailable Unavailable LETTIERE, A PA Unavailable Unavailable LETTIERE, A PA Unavailable Unavailable LETTIERE, A PA Unavailable Unavailable LETTIERE, A PA Unavailable Unavailable LETTIERE, A PA Unavailable Unavailable LETTIERE, A PA Unavailable Unavailable LETTIERE, A PA Unavailable Unavailable LETTIERE, A PA Unavailable Unavailable LETTIERE, A PA Unavailable Unavailable LETTIERE, A PA Unavailable Unavailable LETTIERE, A PA Unavailable Unavailable LETTIERE, A PA Unavailable Unavailable LETTIERE, A PA Unavailable Unavailable LETTIERE, A PA Unavailable Unavailable LETTIERE, A PA Unavailable Unavailable LETTIERE, A PA Unavailable Unavailable LETTIERE, A PA Unavailable Unavailable LETTIERE, A PA Unavailable Unavailable LETTIERE, A PA Unavailable Unavailable LETTIERE, A PA Unavailable Unavailable LETTIERE, A PA Unavailable Unavailable LETTIERE, A PA Unavailable Unavailable LETTIERE, A PA Unavailable Unavailable LETTIERE, A PA Unavailable Unavailable LETTIERE, A PA Unavailable Unavailable LETTIERE, A PA Unavailable Unavailable LETTIERE, A PA Unavailable Unavailable LETTIERE, A PA Unavailable Unavailable LETTIERE, A PA Unavailable Unavailable LETTIERE, A PA Unavailable Unavailable LETTIERE, A PA Unavailable Unavailable LETTIERE, A PA Unavailable Unavailable LETTIERE, A PA Unavailable Unavailable LETTIERE, A PA Unavailable Unavailable LETTIERE, A PA Unavailable Unavailable LETTIERE, A PA Unavailable Unavailable LETTIERE, A PA Unavailable Unavailable LETTIERE, A PA Unavailable Unavailable LETTIERE, A PA Unavailable Unavailable LETTIERE, A PA Unavailable Unavailable LETTIERE, A PA Unavailable Unavailable LETTIERE, A PA Unavailable Unavailable LETTIERE, A PA Unavailable Unavailable LETTIERE, A PA Unavailable Unavailable LETTIERE, A PA Unavailable Unavailable LETTIERE, A PA Unavailable Unavailable LETTIERE, A PA Unavailable Unavailable LETTIERE, A PA Unavailable Unavailable LETTIERE, A PA Unavailable Unavailable LETTIERE, A PA Unavailable Unavailable LETTIERE, A PA Unavailable Unavailable LETTIERE, A PA Unavailable Unavailable LETTIERE, A PA Unavailable Unavailable LETTIERE, A PA Unavailable Unavailable LETTIERE, A PA Unavailable Unavailable LETTIERE, A PA Unavailable Unavailable LETTIERE, A PA Unavailable Unavailable LETTIERE, A PA Unavailable Unavailable Re-disclosure Warning The records that you are about to access may contain information from federally- assisted alcohol or drug abuse programs. If such information is present, then the following federally mandated warning applies: This information has been disclosed to you from records protected by federal confidentiality rules (42 CFR part 2). The federal rules prohibit you from making any further disclosure of this information unless further disclosure is expressly permitted by the written consent of the person to whom it pertains or as otherwise permitted by 42 CFR part 2. A general authorization for the release of medical or other information is NOT sufficient for this purpose. The Federal rules restrict any use of the information to criminally investigate or prosecute any alcohol or drug abuse patient.The records that you are about to access may contain highly sensitive health information, the redisclosure of which is protected by Article 27-F of the [facility] Public Health law. If you continue you may haveaccess to information: Regarding HIV / AIDS; Provided by facilities licensed or operated by the [facility] Office of Mental Health; or Provided by the [facility] Office for People With Developmental Disabilities. If such information is present, then the following [facility] mandated warning applies: This information has been disclosed to you from confidential records which are protected by state law. State law prohibits you from making any further disclosure of this information without the specific written consent of the person to whom it pertains, or as otherwise permitted by law. Any unauthorized further disclosure in violation of state law may result in a fine or mcc sentence or both. A general authorization for the release of medical or other information is NOT sufficient authorization for further disclosure. Allergies and Adverse Reactions Type Description Substance Reaction Status Data Source(s ) Drug Class NO KNOWN NO KNOWN [facility] Drug allergy ASA ASA [facility] Drug allergy PENICILLIN PENICILLIN [facility] Aspirin Aspirin Aspirin Anaphylaxis Active eCW1 ([facility]) Labetalol HCl Labetalol HCl Labetalol HCl other Active eCW1 ([facility]) Clear Bandages Clear Bandages Clear Bandages fluid blisters Active eCW1 ([facility]) Penicillin (For Penicillin (For Penicillin (For rash Active eCW1 ([facility] Use Allergies Use Allergies Use [facility] Only) Only) Only) Center) Adverse Reaction Penicillin Penicillin MEDENT ([facility], [facility]) Adverse Reaction Aspirin Aspirin MEDENT ([facility], [facility]) Drug allergy MS - Latex MS - Latex rash MO [facility] Drug allergy MS - Penicillin MS - Penicillin [facility] Drug allergy MS - Aspirin MS - Aspirin [facility] Adverse Reaction Penicillin Penicillin MEDENT ([facility]) rash Adverse Reaction Aspirin Aspirin MEDENT ([facility]) Adverse Reaction Aspir-Low Aspir-Low MEDENT ([facility]) Adverse Reaction Penicillin Penicillin MEDENT ([facility], ) Clear Bandages Clear Bandages Clear Bandages fluid blisters Active eCW1 ([facility]) Drug allergy Aspirin Aspirin anaphylaxis Active eCW3 ([facility]) Drug allergy Penicillin Drug allergy elbow rash Active eCW3 ([facility]) No Information No Information No Allergy eCW1 ( [facility]) No Information No Information No Allergy eCW1 ( [facility]) No Information No Information No Allergy eCW1 ( [facility]) Family History Family Member Family Member Family Member Date of Description Data Source(s) Name Gender Status Status Unknown Unknown Problem MEDENT ([facility]) Encounters Encounter Providers Location Date Indications Data Source(s ) Outpatient Attender: MED/SURG PAV 03/19/2020 Gildardo STEINBERG INPATIENT LOC-M 03:56:00 Medical C enter KIRSTIN ROGERS [facility] PM EDT Outpatient Attender: 03/19/2020 Gildardo STEINBERG 03:56:00 Medical Center KIRSTIN ROGERS PM EDT Outpatient Attender: Graciela Mathis 03/19/2020 JANKI STEINBERG Primary 12:15:00 (Td ROGERS PM EDT Urgent Care, [facility]) Outpatient Attender: Susie JOHNSON 02/11/2020 Rajan Witt ntry Dille DDS 07:55:02 Family [facility] PM EDT Outpatient Attender: Susie JOHNSON 02/01/2020 [facility] celiy Evonnele DDS 12:17:01 Family [facility] AM EDT [facility] 06/04/2019 [facility] 12[facility]16:23 [facility] EDT Center [facility] 06/04/2019 [facility] 12:11:28 [facility] EDT Center Outpatient [facility] 10/26/2018 eCW3 ([facility] A28 12:00:00 [facility] EST - Care) 10/26/2018 12:00:00 AM EST Outpatient Attender: Susie JOHNSON 08/31/2018 Rajan Witt ntry Dille DDS 08:11:27 Family [facility] PM EST Outpatient Attender: 08/23/2018 Teresita Ordonez 12:00:00 [facility] Outpatient Attender: Susie JOHNSON 08/14/2018 Rajan [facility] ntry Evonnele DDS 10:34:00 Family Health AM EST [facility] Beatrice [address] [place] [address] 06/29/2018 eCW1 ([facility], 12:00:00 Family [facility] [id number] AM EDT Center[facility] [place] 06/29/2018 eCW1 ([facility]00[facility]00 [facility] [address] [facility]) Outpatient Attender: Susie JOHNSON 06/15/2018 [facility] ntry Dille DDS 08:11:00 Family Health PM EDT Outpatient 05/28/2018 [facility] 07:23:00 Radiology PM EDT Imaging Outpatient Attender: Susie ALEX 05/11/2018 [facility] ntry Dille DDS 08:11:53 Family Health PM EDT Outpatient Attender: ASCENCION 04/26/2018 [facility] José Luis 12:00:00 [facility] EDT - Hospital 04/26/2018 05:31:40 PM EDT Outpatient Attender: Gaby CHAVEZ [facility] 04/20/2018 Z12.31 SCR MAMMO To Rhodes MD 01:22:00 Medical Center PM EDT - 04/20/2018 01:22:00 PM EDT Z12.31 SCR MAMMO Outpatient Attender: MED/SURG PAV 04/18/2018 Gildardo MORFIN INPATIENT LOC-M 08:37:00 AM EDT [facility] DIVINA BETANCOURT [facility] Outpatient Attender: 04/18/2018 R19.7 Gildardo MORFIN 08:37:00 AM EDT Medical C [facility] DIVINA BETANCOURT R19.7 Outpatient Attender: [facility] 04/13/2018 [facility] Susie Rachna 12:00:06 AM EDT Family H ealth DDS [facility] 04/12/2018 [facility] Susie Diljenae 12:42:01 PM EDT Family H ealth DDS Outpatient Attender: MOI 04/12/2018 [facility] Susie Rachna 12:41:00 PM EDT Family H ealth DDS Outpatient Attender: MOI 04/12/2018 [facility] Susie Rachna 11:55:00 AM EDT Family H ealth DDS Outpatient Attender: MOI 04/12/2018 [facility] Susie Rachna 11:51:01 AM EDT Family H ealth DDS Outpatient [facility]: [facility] 04/12/2018 [facility] Susie Briscoe 11:49:00 AM EDT Family H ealth DDS Outpatient Attender: [facility] 04/12/2018 [facility] Susie Briscoe 11:33:01 AM EDT Family H ealth DDS Outpatient Attender: [facility] 04/12/2018 [facility] Susie Briscoe 09:49:00 AM EDT Family H ealth DDS Outpatient Attender: [facility] 04/12/2018 [facility] Susie Briscoe 09:14:00 AM EDT Family H ealth DDS Outpatient Attender: [facility] 04/10/2018 [facility] Melinda Pierre 01:41:01 PM EDT Family Health Outpatient 04/06/2018 [facility] 07:11:00 AM EDT Radiology Imaging Outpatient Attender: MED/SURG PAV 04/04/2018 Gildardo MORFIN INPATIENT 09:21:00 AM EDT Khoa MURCIA MD LOC-M LAB REF Center Outpatient Attender: 04/04/2018 Gildardo MORFIN 09:21:00 AM EDT Khoa MURCIA MD Center Outpatient M KATHY MELGAR 04/04/2018 MILD INTERMITTENT To aritan 08:59:00 AM EDT ASTHMA, Medical - 04/04/2018 UNCOMPLICATED Center 08:59:00 AM EDT MILD INTERMITTENT ASTHMA, UNCOMPLICATED [facility] La Center [address] [place] 04/04/2018 eCW1 ([facility], 12:00:00 AM EDT [facility] [address] Center) OutpatientOffice Attender: Rachel 03/28/2018 MED ENT Visit BHARAT marquis/Brice 09:10:00 AM EDT (Myrna [facility]URCIA [facility] Outpatient Ben VELASCO 03/25/2018 E03.9 [facility] 09:17:00 AM EDT I10 Medical C enter - 03/25/2018 E78. 09:17:00 AM EDT 5 E03.9 I10 E78.5 SF La Center [address] [place] 03/23/2018 eCW1 ([facility], 12:00:00 AM EDT [address] [place] [address]) Outpatient 02/16/2018 [facility] 07:01:00 AM EDT Radiology Imaging Outpatient Attender: [id number] 02/15/2018 [facility] José Luis 12:00:00 AM EDT [facility] 02/16/2018 [facility] 12:00:00 AM EDT Outpatient Attender: Ben SONG 02/02/2018 EPIGASTRIC PAIN Myrna MORFIN 01:55:00 PM EDT Medical Roshan MURCIA MD - 02/02/2018 01:55:00 PM EDT EPIGASTRIC PAIN [facility] Beatrice [address] 02/02/2018 eCW1 [facility] 12:00:00 AM ([facility] [place] EDT Family Heal [id number] [place]) OutpatientOffice Attender: Xochilt Main Office 02/01/2018 MEDE NT Visit Jeff ROGERS 07:35:00 AM ([place] [facility] Outpatient Attender: [facility] 01/22/2018 [facility] Melinda Pierre 09:01:02 PM Family Heal th EDT [facility]2018 [facility] Melinda Pierre 01:06:01 PM Family Heal th EDT Outpatient Attender: [facility] 01/22/2018 [facility] Melinda Pierre 01:05:01 PM Family Heal th EDT OutpatientOffice Attender: Hilda 01/17/2018 MEDE NT Visit BHARAT carpenter/Reindl 09:30:00 AM (Gildardo MURCIA MD EDT [facility]) Outpatient 01/04/2018 [facility] 07:21:00 AM Radiology EDT Imaging Preadmit Attender: 12/28/2017 ALICIA MORFIN 12:05:00 PM CAMDEN MURCIA MD EDT Center CHRONIC DIARREHA Preadmit Attender: BHARAT 12/28/2017 10:15:00 CHRONIC CAMDEN MURCIA MD AM EDT Center CHRONIC DIARREHA Outpatient Attender: Ben GIVENS 12/28/2017 ALICIA MORFIN 06:48:00 AM EDT - DIARREH Medical Kale MURCIA MD 12/28/2017 10:00:00 AM EDT CHRONIC DIARREHA Outpatient Attender: MED/SURG PAV 12/28/2017 CHRONIC Gildardo MORFIN INPATIENT LOC-M 06:48:00 AM EDT DIARREHA [facility] DIVINA BETANCOURT OPP - 12/28/2017 10:00:00 AM EDT CHRONIC DIARREHA Outpatient Attender: Ben RAD-M RAD 12/27/2017 CIRRHOSISGildardo 09:30:00 AM EDT DIARRHEA Medical C enter DIVINA BETANCOURT CIRRHOSIS, DIARRHEA Preadmit Attender: MED/SURG PAV 12/27/2017 CIRRHOSIS, Gildardo MORFIN INPATIENT LOC-M 09:30:00 AM EDT DIARRHEA [facility] DIVINA BETANCOURT RAD CIRRHOSIS, DIARRHEA OutpatientOffice Main Office 12/14/2017 MEDENT Visit 05:45:00 AM EDT ([facility]) [address] 12/14/2017 eCW1 ([facility], 12:00:00 AM EDT [facility] [address]) Outpatient Attender: MED/SURG PAV 11/28/2017 [facility] BHARAT INPATIENT LOC-M 11:41:00 AM EDT [facility] DIVINA BETANCOURT LAB REF OutpatientOffice Attender: Rachel 11/16/2017 MED ENT Visit BHARAT el/Reindl 11:00:00 AM EDT ([facility]) [address] 11/03/2017 eCW1 ([facility], 12:00:00 AM EST [facility] [address]) Outpatient MED/SURG PAV 10/07/2017 I10, [facility] INPATIENT LOC-M 08:38:00 AM EST E03.9 [facility] WU , Z13.2 20 I10, E03.9, Z13.[address] 10/06/2017 eCW1 ([facility], 12:00:00 AM EST [facility] [address]) Emergency Attender: MED/SURG PAV 08/01/2017 HIGH BLOOD [facility] [id number] INPATIENT LOC-M 08:07:00 AM EST PRESSURE [facility] RASHI AMADOR MD ED - 08/01/2017 02:25:00 PM EST HIGH BLOOD PRESSURE Emergency M RAD-M ED 08/01/2017 08:07:[facility] EST - 08/01/2017 Pradeepulises r 08:07:00 AM EST Outpatient 01/01/2014 07:45:00 [facility] AM [facility]T Imaging Emergency Attender: Osmar CAO/SURG PAV 12/23/2013 09:26:00 [facility] Khoa Santiago MD INPATIENT LOC-M ED AM EDT - 12/23/2013 Center 05:18:00 PM EDT Immunizations Vaccine Date Status Description Data Source(s) No Known Immunizations completed eCW1 ([facility]) No Known Immunizations completed eCW1 ([facility]) No Known Immunizations completed eCW1 ([facility]) No Known Immunizations completed eCW1 ([facility]) No Known Immunizations completed eCW1 ([facility]) Medications Medication Brand Start Product Dose Route Administrative Pharmacy at Indications Reaction Description Data Name Date Form Instructions Instructions Source(s) Ondansetron Ondans 03/19/ active ME DENT 4 MG Oral etron 2020 ([place] Tablet HCL 12:00: Urgent 00 AM Care, EDT [facility]) 4 mg 03/19/ tablet 14 TAKE ONE TABLET TAKE ONE SOLD: Moody 2020 BY MOUTH EVERY TABLET BY Drugs 12:00: 8 HOURS FOR MOUTH EVERY 8 020 00 AM NAUSEA HOURS FOR EDT NAUSEA 120 ACTUAT Floven 09/25/ 1.0 active Flovent HFA eCW3 Fluticasone t HFA 2019 {puff 110 MCG/ACT (Junior propionate 110 12:00: } [place] 0.11 MCG/AC 00 AM Health MG/ACTUAT T EST Care) Metered Dose Inhaler [Flovent] Flovent HFA 110 MCG/ACT Dicyclomine Dicycl 03/28/ Tablets ORAL complet Dic yclomine MEDENT Hydrochlori omine 2018 ed HCL ([place] 20 MG HCL 12:00: Medical Oral Tablet 00 AM Practic e, Dicyclomine EDT PC) HCL Omeprazole Omepra 03/28/ Capsules complet Ome prazole MEDENT [address] rooney (Gildardo Paredes 12:00: Medical Release 00 AM Practice, Oral EDT PC) Capsule Meclizine Mecliz 05/31/ Tablets ORAL complet Mecli zine MEDENT Hydrochlori ine 2018 ed HCL ([facility] de 25 MG HCL 12:00: Urgent Oral Tablet 00 AM Care, Meclizine EDT [facility]) HCL Fluticasone Flutic 02/01/ Suspensi complet Fl uticasone MEDENT Propionate asone 2018 on ed Propionate ([place] Propio 12:00: Urgent lan 00 AM Care, EDT PLL) pantoprazol Pantop 01/17/ Tablets complet [place] toprazole MEDENT e [address] rooney Sodium (Samarit an Delayed Sodium 12:00: Medical Release 00 AM Practice, Oral Tablet EDT ) Pantoprazol e Sodium Levothyroxi Levoth 12/13/ Tablets ORAL complet Lev othyroxin MEDENT ne Sodium yroxin 2018 ed e Sodium (Car diolog 0.075 MG e 12:00: y Oral Tablet Sodium 00 AM Assoc iates EDT of [facility]) Amlodipine Norvas 12/13/ Tablets ORAL complet Norv asc MEDENT 5 MG Oral c 2017 ed (Cardiolog Tablet 12:00: y [Norvasc] 00 AM Associate s EDT of [facility]) Cyclosporin Restas 12/13/ Emulsion OPHTHA complet Restasis MEDENT e 0.5 MG/ML is 2018 LMIC ed (Cardiol og Ophthalmic 12:00: y Suspension 00 AM Associat es [Restasis] EDT of [facility]) Metoprolol Metopr 12/13/ Tablets ORAL complet Meto prolol MEDENT Tartrate olol 2018 ed Tartrate (Cardio log 100 MG Oral Tartra 12:00: y Tablet te 00 AM Associates EDT of [place]) Losartan Losart 12/13/ Tablets ORAL complet Losart an MEDENT Potassium an 2018 ed Potassium (Card iolog 100 MG Oral Potass 12:00: y Tablet ium 00 AM Associates EDT of [place]) Omeprazole Omepra 12/13/ Capsules ORAL complet Ome prazole MEDENT 40 MG zole 2018 ed (Cardiolog Delayed 12:00: y Release 00 AM Associates Oral EDT of [place]) Capsule 200 ACTUAT Proair 12/13/ Aerosol ORAL complet Proa ir HFA MEDENT Albuterol HFA 2018 ed (Cardiolog 0.09 12:00: y MG/ACTUAT 00 AM Associate s Metered EDT of [facility]) Dose Inhaler [ProAir] Proair HFA Ciprofloxac Cipro 12/01/ Tablets complet Cipr o MEDENT in 250 MG 2018 ed ([facility] Oral Tablet 12:00: Medica l [Cipro] 00 AM Practice, EDT PC) Azathioprin Azathi 11/28/ Tablets ORAL complet Aza thioprine MEDENT e 50 MG oprine 2018 ed ([facility] Oral Tablet 12:00: Medica l 00 AM Practice, EDT PC) Azathioprin Azathi 11/28/ Tablets ORAL complet Aza thioprine MEDENT e 50 MG oprine 2018 ed ([facility] Oral Tablet 12:00: Medica l 00 AM Practice, EDT PC) Suprep Suprep 11/16/ Solution complet Suprep Bowel MEDENT Bowel Prep Bowel 2018 ed Prep Kit (To aritan Kit Prep 12:00: Medical Kit 00 AM Practice, EDT PC) Bisacodyl 5 Dulcol 11/16/ Tablets complet Dul colax MEDENT MG Delayed ax 2018 DR ed (Samarita n Release 12:00: Medical Oral Tablet 00 AM Practic e, [Dulcolax] EDT PC) 100-25 mg 08/09/ tablet 30 TAKE ONE TABLET TAKE ONE SOLD: Heidy Stewart BY MOUTH EVERY TABLET BY Drugs 12:00: DAY MOUTH EVERY 017 00 AM DAY EST 200 mg 08/04/ tablet 30 TAKE ONE TABLET TAKE ONE SOLD: Heidy Stewart extended BY MOUTH EVERY TABLET BY Drugs 12:00: release DAY MOUTH EVERY 017 00 AM 24 hr DAY EST 75 mg 08/04/ tablet 30 TAKE ONE TABLET TAKE ONE SOLD: Heidy Stewart BY MOUTH EVERY TABLET BY Drugs 12:00: DAY MOUTH EVERY 017 00 AM DAY EST 20 mg 08/04/ capsule, 30 TAKE ONE TAKE ONE SOLD: Heidy Stewart delayed CAPSULE BY CAPSULE BY Drugs 12:00: release( MOUTH EVERY DAY MOUTH EVERY 017 00 AM /EC) DAY EST 50 mg 08/04/ tablet 120 TAKE FOUR TAKE FOUR SOLD: Heidy Stewart TABLETS BY TABLETS BY Drugs 12:00: MOUTH EVERY DAY MOUTH EVERY 017 00 AM DAY EST 75 mcg 08/04/ tablet 30 TAKE ONE TABLET TAKE ONE SOLD: Heidy Stewart BY MOUTH EVERY TABLET BY 12/06/2 Drugs 12:00: DAY MOUTH EVERY 017 00 AM DAY EST Albuterol active Albuterol MED ENT Sulfate Sulfate ([facility]) 24 HR Metopr 1.0 active Metoprolol eCW3 metoprolol olol {tabl Succinate ER ([place] succinate Succin et} 200 MG [place] 200 MG ate ER Health Extended 200 MG Care) Release Oral Tablet Metoprolol Succinate ER 200 MG Omeprazole Omepra 1.0 active Omeprazole eCW3 20 MG zole {caps 20 MG ([place] Delayed 20 MG ule} [facility] Release Health Oral Care) Capsule Losartan complet Losartan MEDE NT Potassium ed Potassium ([facility], [facility]) Imuran active Imuran MEDENT ([facility]) Norvasc complet Norvasc MEDENT ed ([facility]) Amlodipine Amlodi 1.0 active Amlodipine eCW3 5 MG Oral pine {tabl Besylate 5 (Hu dson Tablet Besyla et} MG [place] Amlodipine te 5 Health Besylate 5 MG Care) MG Potassium Potass Capsules complet Potass ium MEDENT Chloride 10 ium ER ed Chloride ER ( [facility] MEQ Chlori Medical Extended de ER Practice, Release PC) Oral Capsule Potassium Chloride ER Ascorbic Vitami Tablets complet Vitamin C MEDENT Acid 500 MG n C ed (Samarit an Oral Tablet Medical Vitamin C Practice, PC) Calcium Calciu Tablets complet Calcium + D3 MEDENT Carbonate m + D3 ed ([facility] / Medical Cholecalcif Practice , gillian 200 PC) UNT Oral Tablet Calcium + D3 200 ACTUAT Ventol Aerosol complet Ventol in HFA MEDENT Albuterol in HFA ed ([facility] Medical MG/ACTUAT Practice, Metered PC) Dose Inhaler [Ventolin] Ventolin HFA Artificial UNK active 1 drop eCW1 Tear ([facility]) Dextran 70 Artifi Solution complet Artif icial MEDENT 1 MG/ML / cial ed Tears ([facility] n hypromellos Tears Medical e 3 MG/ML Practice, Ophthalmic PC) Solution Artificial Tears Omeprazole Omepra Capsules complet Omepr azole MEDENT [address] ed ([facility] Delayed Medical Release Practice, Oral PC) Capsule 200 ACTUAT Ventol 2.0 active Ventolin H FA eCW3 Albuterol in HFA {puff 108 (90 (Hud son 0.09 108 s_as_ Base) [facility] MG/ACTUAT (90 neede MCG/ACT Health Metered Base) d} Care) Dose MCG/AC Inhaler T [Ventolin] Ventolin HFA 108 (90 Base) MCG/ACT Hydrochloro Losart Tablets complet Losar babin MEDENT thiazide 25 an ed Potassium/Hy ([facility] MG / Potass drochlorothi Medic al Losartan ium/Hy azide Practice , Potassium drochl PC) 100 MG Oral orothi Tablet azide Losartan Potassium/H ydrochlorot hiazide Azathioprin Azathi Tablets ORAL complet Azath ioprine MEDENT e 50 MG oprine ed ([facility] Oral Tablet Medical Practice, ) 24 HR Metopr Tablets complet Metoprolol MEDENT metoprolol olol ER 24HR ed Succinate E R ([facility] succinate Succin Medical 200 MG ate ER Practice, Extended PC) Release Oral Tablet Metoprolol Succinate ER Hydrochloro Losart 1.0 active Losartan eCW3 thiazide 25 an {tabl Potassium-HC (Junior MG / Potass et} TZ 100-25 MG [place] Losartan ium-HC Health Potassium TZ Care) 100 MG Oral 100-25 Tablet MG Losartan Potassium-H CTZ 100-25 MG Levothyroxi Levoth Tablets complet Levot hyroxin MEDENT ne Sodium yroxin ed e Sodium (To aritan 0.075 MG e Medical Oral Tablet Sodium Practi , PC) Unknown complet eCW1 Medications ed ([facility]) Unknown complet eCW1 Medications ed ([facility]) Metoprolol active Metoprolol M EDENT Tartrate Tartrate ([facility]) Artificial UNK active 1 drop eCW1 Tear ([facility]) Omeprazole Omepra ORAL active Omeprazole MEDENT 40 MG zole ([place] [facility] Release [facility], Oral PLL[facility]) Capsule Levothyroxi Levoth active Levothyro paula MEDENT ne Sodium yroxin e Sodium ([place] 0.075 MG e Urgent Oral Tablet Sodium Care, PLLC) carbamide Debrox active Debrox MEDE NT peroxide 65 ([facility] MG/ML Otic Urgent Solution Care, [Debrox] PLLC) Levothyroxi Levoxy active Levoxyl 7 5 eCW3 ne Sodium l 75 MCG ([place] 0.075 MG [facility] ER Oral [facility] Health [Levoxyl] Care) Levoxyl 75 MCG [place] UNK active [place] eCW 3 200mg 200mg ([facility]) Insurance Providers Payer name Policy type / Policy ID Covered Covered Policy Plan Coverage type alliance party ID alliance party's [place] Inform ation relationship to terrazas DORITA [id number] SP [id number] MEDICARE [id number] SP [id number] Managed Care - P [id number] S [id number] [facility] Medicaid S [id number] S [id number] [facility] MEDICAID [id number] SP [id number] [facility] [id number] 1 [id number] PLANS UNHC MEDICAID [id number] SP [id number] [facility] Managed Care - P [id number] S [id number] [facility] ANSI-Medicaid [id number] ANSI-Not a [id number] Secondary [id number] Insurance [id number] ANSI-Medicaid [id number] [facility] I [id number] Self [id number] [facility] [id number] S [id number] [facility](MCA ID) [facility] [id number] SP [id number] [facility] [id number] ANSI-Medicaid [id number] ANSI-Not a [id number] Secondary [id number] Insurance [id number] Self Pay O UNAVAILABLE S UNAVAILA BLE Medicaid S UNAVAILABLE S UNAVAILA BLE Managed Care - P UNAVAILABLE S PAULO VAILABLE Community Plan [facility] [id number] SP [id number] PLAN MCDO [facility] [id number] SP [id number] PLAN MCDO [facility] [id number] Self [id number] Healthcare Maintenance Gur[facility]it/[facility] Organization (HMO) [facility] [id number] [place] [id number] PLAN MCDO [facility] [id number] Self [id number] HLCR/Community Maintenance [facility] Organization (HMO) [facility] [id number] SP [id number] PLAN MCDHMO [facility] Commercial [id number] Self [id number] Plan-Gurjit MEDICAID [id number] SP [id number] MEDICAID [id number] SP [id number] HEALTH FISRT P [id number] S [id number] U [facility] [id number] SP [id number] SP [id number] Problems, Conditions, and Diagnoses Code Display Name Description Problem Effective Data Type Dates Source(s) E03.9 Hypothyroidism Hypothyroidism Problem 08/29/2018 eCW3 ( Junior (acquired) (acquired) 12:00:00 AM [facility] EST Care) M32.9 Lupus Lupus Problem 08/29/2018 eCW3 (Junior 12:00:00 AM [facility] EST Care) Z85.828 History of basal cell History of basal Problem 08/29/20 18 eCW3 (Junior carcinoma cell carcinoma 12:00:00 AM [facility] EST Care) J45.20 Mild intermittent Mild intermittent Problem 08/29/2018 eCW3 ([place] asthma, unspecified asthma, unspecified 12:00:0 0 AM [facility] whether complicated whether complicated EST Care) K75.4 Autoimmune hepatitis Autoimmune hepatitis Problem 08/29 eCW3 (Junior 12:00:00 AM [facility] EST Care) I10 Essential Essential Problem 08/29/2018 eCW3 ([place] hypertension hypertension 12:00:00 AM [facility] EST Care) 521.03 DENTAL CARIES DENTAL CARIES 04/12/2018 [place] EXTENDING INTO PULP EXTENDING INTO PULP 12:40:1 8 PM [facility] [id number] Autoimmune hepatitis Autoimmune hepatitis Problem 01/17 MEDENT 12:00:00 AM ([facility], ) [id number] Cirrhosis - Cirrhosis - Problem 01/17/2018 MEDENT non-alcoholic non-alcoholic 12:00:00 AM ([facility], ) [id number] Gastrointestinal Gastrointestinal Problem 01/17/2018 ME DENT tract finding tract finding 12:00:00 AM ([facility], ) [id number] Enteric Enteric Problem 01/17/2018 MEDENT campylobacteriosis campylobacteriosis 12:00:00 AM ([facility], ) [id number] Epigastric pain Epigastric pain Problem 01/17/2018 MEDE NT 12:00:00 AM ([facility], ) J45.20 Mild intermittent Mild intermittent Problem 12/14/2017 eCW1 asthma without asthma without 12:00:00 AM ([facility] complication complication [facility]) E78.5 Hyperlipidemia, Hyperlipidemia, Problem 11/03/2017 eCW1 unspecified unspecified 12:00:00 AM ([facility] hyperlipidemia type hyperlipidemia type [facility]) K75.9 Hepatitis Hepatitis Problem 10/06/2017 eCW1 12:00:00 AM ([facility]) I10 Essential Essential Problem 10/06/2017 eCW1 hypertension hypertension 12:00:00 AM ([facility]) K75.4 Hepatitis, autoimmune Hepatitis, Problem 10/06/2017 eCW 1 autoimmune 12:00:00 AM ([facility]) Z85.828 Hx of basal cell Hx of basal cell Problem 10/06/2017 eC W1 carcinoma carcinoma 12:00:00 AM ([facility]) L93.0 Lupus erythematosus, Lupus erythematosus, Problem 10/06 eCW1 unspecified form unspecified form 12:00:00 AM ( [facility]) E03.9 Hypothyroidism, Hypothyroidism, Problem 10/06/2017 eCW1 unspecified type unspecified type 12:00:00 AM ( [facility]) K21.9 Gastroesophageal Gastroesophageal Problem 10/06/2017 eC W1 reflux disease, reflux disease, 12:00:00 AM ( [facility] es[facility] presence esophagitis presence EST Family not specified not specified Health Center) R31.9 Hematuria, HEMATURIA, Diagnosis 03/19/2020 [facility] unspecified UNSPECIFIED 03:56:00 PM Medical EDT Center R12 Heartburn HEARTBURN Diagnosis 03/19/2020 [facility] 03:56:00 PM Medical EDT Center N60.32 Fibrosclerosis of FIBROSCLEROSIS OF Diagnosis 04/20/2018 [facility] left breast LEFT BREAST 01:22:00 PM Medical EDT Center N60.31 Fibrosclerosis of FIBROSCLEROSIS OF Diagnosis 04/20/2018 [facility] right breast RIGHT BREAST 01:22:00 PM Medical EDT Center Z12.31 Encounter for ENCNTR SCREEN Diagnosis 04/20/2018 Myrna n screening mammogram MAMMOGRAM FOR 01:22:00 PM M edical for malignant MALIGNANT NEOPLASM EDT Cinthya ter neoplasm of breast OF BREAST R19.7 Diarrhea, unspecified DIARRHEA, Diagnosis 04/04/2018 To aritan UNSPECIFIED 09:21:00 AM Medical EDT Center R05 Cough COUGH Diagnosis 04/04/2018 [facility] 08:59:00 AM Medical EDT Center J45.20 Mild intermittent MILD INTERMITTENT Diagnosis 04/04/2018 [facility] asthma, uncomplicated ASTHMA, 08:59:00 AM Me dical UNCOMPLICATED EDT Center R10.13 Epigastric pain EPIGASTRIC PAIN Diagnosis 02/02/2018 Adarsh reny 01:55:00 PM Medical EDT Center N28.9 Disorder of kidney DISORDER OF KIDNEY Diagnosis 8 [facility] and ureter, AND URETER, 01:55:00 PM Medical unspecified UNSPECIFIED EDT Center I10 Essential (primary) ESSENTIAL (PRIMARY) Diagnosis 018 [facility] hypertension HYPERTENSION 08:38:00 AM Medical EST Center Z13.220 Encounter for ENCOUNTER FOR Diagnosis 10/07/2017 Myrna rao screening for lipoid SCREENING FOR LIPOID 08:38 :00 AM Medical disorders DISORDERS EST Center E03.9 Hypothyroidism, HYPOTHYROIDISM, Diagnosis 10/07/2017 Adarsh reny unspecified UNSPECIFIED 08:38:00 AM Medical EST Center V14.6 V14.6 V14.6 Diagnosis 12/23/2013 [facility] 09:26:00 AM Medical EDT Center V14.0 V14.0 V14.0 Diagnosis 12/23/2013 [facility] 09:26:00 AM Medical EDT Center 401.9 401.9 401.9 Diagnosis 12/23/2013 [facility] 09:26:00 AM Medical EDT Center 244.9 244.9 244.9 Diagnosis 12/23/2013 [facility] 09:26:00 AM Medical EDT Center 311 311 311 Diagnosis 12/23/2013 [facility] 09:26:00 AM Medical EDT Center 710.0 710.0 710.0 Diagnosis 12/23/2013 [facility] 09:26:00 AM Medical EDT Center 427.31 427.31 427.31 Diagnosis 12/23/2013 [facility] 09:26:00 AM Medical EDT Center G89.29 Other chronic pain Other chronic pain Diagnosis [facility] M25.562 Pain in left knee Pain in left knee Diagnosis [facility] M25.561 Pain in right knee Pain in right knee Diagnosis [facility] 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 Diagnosis [facility] ate (current) drug (current) drug Univer sit therapy therapy [facility] M32.9 Systemic lupus Systemic lupus Diagnosis [facility] e erythematosus, erythematosus, Univer sity unspecified unspecified Hospital Surgeries/Procedures Procedure Description Date Indications Data Source(s) Colonoscopy Flexible 12/28/2017 MEDENT ([facility] Proximal To Splenic 12:00:00 AM Medical Practice, Flexure W/Biopsy EDT PC) Single/ ECG ROUTINE ECG 12/14/2017 MEDENT (Card iology W/LEAST 12 LDS W/I&R 12:00:00 AM [facility]oc[facility] [place]) EDT No Known procedures No Known procedures e CW1 ([facility]) No Known procedures No Known procedures e CW1 ([facility]) No Known procedures No Known procedures e CW1 ([facility]) No Known procedures No Known procedures e CW1 ([facility]) No Known procedures No Known procedures e CW1 ([facility]) Results ID Date Data Source [id number] 04/17/2020 12:00:00 AM EDT [facility] Name Value Range Interpretation Code Description Data Maryan rce(s) Supporting Document(s ) SARS-CoV-2 [facility] BY PCR This lab was ordered by CINDA Islas and reported by [employer]. ID Date Data Source [id number] 03/30/2020 12:00:00 AM EDT [facility] Name Value Range Interpretation Code Description Data Maryan rce(s) Supporting Document(s ) 2019-nCoV [facility] RNA XXX BAUDILIO+probe- Imp This lab was ordered by [facility] and reported by [facility] ID Date Data Source [id number] 03/19/2020 11:54:00 AM EDT MEDENT ([facility], [facility]) Name Value Range Interpretation Description Data Sup porting Code Source(s) Document(s ) Bacteria Laboratory MEDENT identified in test result ([place] [facility], [facility]) Rx Ondansetron ID Date Data Source [id number] 03/20/2020 01:04:00 PM EDT [facility] FULL REPOR T IN LAB NOTES (eCW and Medent). SPECIMEN APPEARS CONTAMI NATED Name Value Range Interpretation Code Description Data Maryan rce(s) Supporting Document(s ) ID Date Data Source [id number] 06/04/2019 12:16:23 AM EDT [facility] CorporationPATIE NT INFORMATIONPatient MRN Name Date of Age Gend*PT [id number] Pau Jackson 1955 63 years F ---PT Loca tion Admission Date/Time Visit ID Attending Provider --- --- --- --- EPI ID CSN Admitting Provider [id number] --- Patient : Pau PatelDOB : 1955 Sex : FPatientID : [id number] berto : [id number] (Cell Phone) [phone] (Home Phone)E-Mail :Address : [address] [place] [address] [place], [place] [address] Date : Feb 05 2018 12:00 AMDocument Summary : Stress Test outsideStress Test outsideImported By: Richa Vang 2017 11:13:23 AM External Attachment: Type: Image Comment: Exter nal Document Name Value Range Interpretation Code Description Data Maryan rce(s) Supporting Document(s ) ID Date Data Source [id number] 06/04/2019 12:11:28 AM EDT [facility] NT INFORMATIONPatient MRN Name Date of Age Gend*PT [id number] Pau Jackson 1955 63 years F ---PT Loca tion Admission Date/Time Visit ID Attending Provider --- --- --- --- EPI ID CSN Admitting Provider [id number] --- Patient : Pauemmanuel Parker ParishDOB : 1955 Sex : FPatientID : [id number] berto : [id number] (Cell Phone) [phone] (Home Phone)E-Mail :Address : [address] [place] [address] Date : Aug 01 2017 12:00 AMDocument Summary : EKG ReportEKG ReportImported By: Karen Alcala 06/20/2018 9:31:04 AM External Attachment: Type: Image Comment: Exter nal Document Name Value Range Interpretation Code Description Data Maryan rce(s) Supporting Document(s ) ID Date Data Source [id number] 04/30/2018 10:29:28 AM EDT [facility] Name Value Range Interpretation Code Description Data Maryan rce(s) Supporting Document(s ) Progress Note [facility] 0xLjQNCMethodist [facility] i48/TDQox [address] JqDQogIDw8 DQogI JUkZ2R6kIv vcigp F6VdtDmsPH kvU3V iamVjdCgpL 1Byb2 S5B0WmIIlf S2V5d 75tBQUyVF0 DcmVh dGlvbkRhdG UoMDg vMjcvMTggM TA6Mj g1UYBiB91e ZERhd UMaWC1TwvU hdG9y KEVwaWMgU3 lzdGV pphBCf7Lkq 3JhdG lvbikNCiAg Pj4NC dGcLX1ehn6 KNCAw NJ6okj0VZV A8PC9 DsZm1ZZXwK 0ZsYX CnALEgj5Yj IC9MZ J0ovAixRxN 5ND4+ YRyjRGE1zm VhbQ0 EcThZS2zi2 7gSfj /A+C6IOCub AccRq NvxD55plXe TW2O3 2VB0Chx0rZ YSVV3 iur/+zFCyJ eeyxX wiXS3ZARUX +ubjz DdDigGoPj/ AGLq2 gR/Q/+0aQ0 N/wPX 03eo7hr//C 3YX/t AXGw5+XDja XdB82 3U+78h7a7X pHJ8b hYO7bMGbyn A5Fhz 5zIZp+PZDk M1lsF TJryASvwZw Wf6CU YqmSdY4e5k 38AZM l3sOd7+9ew fT7zC zlpk6szOkF IZjsR 7O22FdxYjb M+aYu +ezjp/N3Wa EQC26 Jz84B3JkAx 576Jt m67HmX2+5+ wAM1v j/r1YM9bP1 hkd39 DlkAhYvnJ+ 8CrjM nPdOy9cOEr AzPQe OaFxXzCj1r DKjdc hqKWCuVUdZ IUVSw QaMe8CFkEj 5zzvz iDHakg3IZk 7o4LX M9/fAXQex6 DgcCA bn/Pl07FVA pmc4D AEP4kNTdvz nbwk6 XqNv9sJJos N5DRn vk896QkC7+ pYM85 s6m1daU9Pp awS23 yEX0RqhqqV RGGYi 705RiIwKwW 44TAe +wlUgExilB VjM7Q KCCSPxV1Fq 3fTm6 zVc/w3MdIz uioyn I+Ubfitobl cq6VZ kq+fvxonZR x5zjj nU6ryMkzYo 6Lj8r BKJQ2X7EF3 dmcwl PFdqJqMOEP 0ub3M C5tZB61Zwk oCLZK GyGLOkSnpP 2ohSI 3sfFAL+A1P ZS842 8UMovGNuHn ODeQD zbAwT6GRmn XpL0K 9JycOtOs3T N+kp1 EZSX2SR97B qEhhq Gr91sVkX4f 9W7De zHgqCLfvjs AyyUM GpSmQUBUfT THxX+ ADu1ed8Fg5 FytK4 qUiDrIixvO yUpxp DosDiQX0yB O5Wos QwVpFabiAo YHv+o wiiYgVnAc4 VzhCq OPig/k5/kE umnTj H4YEzjesGu chhto VHc0hvxyUa WEuF7 2lTRmWxUtk JdDzj 9pnbYHiVAV NVlVu TZ3E6mUwmk ifb5r lF3u8amjai +5L3S ZjBz1XJGgk Lp9R6 nDmPPRCmm7 Rzen0 JBr2F6V13u cS5bv /VhMWZRnSO VVfYe Gy7tLfdRZ7 lXcw4 4R6M+pSuKi a30Mb JXJWUFoCqr q5pcr LM2rZl1Tz7 FV9ba BNMpmXeNT2 eb7MW BrlMRNh/XF lWnXB k0UPS8+w9D C9WDN 7tYStkZe90 /FFzo OXd/TOPl3c tF+tc 38C7evqQZz u7Tzs VbqcVN68S+ lIYOt zuqHvHp44O HlfOv ot5IR/EyaE HmW8B PIg1bWYTQt Kp6t2 T1BZx2Uazc UUrgn B04j+8z784 Ptygt yuPwdny9n6 4f9JF VKE9qQCDRj 5ar// 7N5q5oKF0z tUaI5 hN1U7eliy9 DQDHh R3CJrwG1Wr ui4JO n+8nqis5JN cL+i0 HMpwT6k1nH qMczr RiJswL0vhx 0QtzI RIoVBjgxJx 8cqGi NS8PqTbtoV +u9Mm HlLSxsrg6q VSmJZ 7MKjoQZos8 LhP8l tL7DzPBz+7 EHG8d wOtl2IE5yr BWDyK ERaZiKNCE0 0wlP9 FE+Ue7JIng dYIoz 3E+Za9zhSU k+HWN phbBvUyWcB GXWZD uzK9hQoC5M /kZwH mh3yl2xQeX FmhzF ppVf636GW1 oFNlw jGfC1hLxeY GFUvd wGwU/SoEFx xYu9e DopSlyIskm ZuIgZ 2mMz0dabUM qKIAW YMrkPkFyiK lY0O0 hlDjKPRjpe 3qJeq 7iNBMrkeSY UCFr1 pDkHNYquy9 Tbf9C ZkhAIWOBkP NgTSO jIS0KFOkxz gAOsU eDAObJYz7t FZXhd Oyzd2O5CNk yzY4v ripn5O8dFV m+O84 Uay1E0HjDe sBxOH VPFmwI71ag kNH6G XXb+NPR9Uh /T1Uu qfqAtSxWGL d5Kub 3USdl+WPjs Eoj41 AXMOjQqSTN 4tgJt 79QzQA7Vvu IkkLO QLoCwu3P0z Jr7UH 8bsZUaUTQ3 Rwdtp CJxOsyooDE yBjaP gmVTOYkQhl EGAs9 GOtaFhkbpK mSiV5 4EoCE2YSoa Q0Vyc paRBHCvVaQ 42xJL yHsXkC3qxK UP+ck SpPEJNc2Wk ROTiw vPPz98q7q0 zKI+l WBv7M1XwfW l28dj EjcJNg5pGC hFKmF fwUbGpz2tC NmHDz VsSdQcRamC 9C7j+ CKT6LyvtZE h4szu Bt/uRh/hZt zmPw9 cU0qKuwaQs wl0XN tnYRvULiyt cxJdT AnDeT3DZkV Hqjyu aMTytXnydn ny5vJ f8eX4+noEs Z/ja5 31Ot7ut6us 5Va54 Nwb5uMfa07 +5lCh 5CN01HAF6N xw+DV nfNqLc0Ezi bX0x4 4YgZtpaMdf EOYbP SDwToXu9VL ZBt0L DeIFWU9lSy qSmbw TwXbVItMjA XgDP+ QHvfZ8e7os 7lWmT hAfRRoXFhJ DSo8F SyCXEELPWa KDBZl MtfZsMCfVl WpNqD ZNJChjx5qf Wa4nq 7y+RBOZURV ZxBpp 1KISjTe4tI aYAVG sCDDBM4MwA 04aBC KpUgEZThM4 98pnW AZlpPpfTg8 457Wq 3iX9HTiia8 s069d /I4QVLnVkf Ddlec 6o7CCQP8Yo OZble cSpRQzbChA LBZij u1zadRMQz9 xje5T O04UKYxhPF lNmYT ZO2iKDF5Dn 1yf1w 4gqmDenr5V zkHI+ 6l+na+CZNm B6j2D jhvVXkqTBi HFKgz YlIvhADt6t cN9XT hbQ/jrKAs2 ebd54 RxWbl4ssv3 EiWU1 p0NJFWuxAw bzj+6 moBxkw7XM4 Yw16X 03VUciLyMM Dqo5V UbuDxglcww IPIFz Iof9T59HL/ RmHJR NV86RUX4/N tiOWc +lHtaM34eo qs3R7 TNPNkebjuG A5TlP ls+f6Tnc+r nxW/q 6heg7trGKs qDt8h 8Z2QJdYC7O 1QuHW zQ1iV+CqDz kWuL/ 5YXWixy+2N WPH1p 83xEXcEcJr tv3Jk tmw1RDg3/F 5Hjy4 yxn0hXDG39 hWBbt Cy9h44Vsq7 l7GP5 Al/b4eTz2t lsm59 Jj33HonWG1 9vMa/ 8NdA405hIp +rRqv sAro52680l nxWxJ focY/x+GLX X1qfO UXgCp8g47m TFDjb 3rR+BqC3m/ fl8bX UR7cyHrskx Vb8Tw 9VXLc3/yN7 pv6r3 BZwuI4CtlG 9fHo2 cgTBy0HOx3 Pu2dm r4ywUg2rxF YTmiK kZ7b3rQll8 EB/reimbursement representative gSJr2C4dtW Cwm1e bIOUDzD06M oVk9I VDs3CjD85B jJp9b dPu19/R822 z1QZW 6gi3KxUEOx DQplb mRvYmoNCjU gMCBv YmoNCiAgPD wNCiA gICAvVHlwZ S9QYW dlDQogICAg L1Bhc mVudCAzIDA gUg0K VWExQW6JOK NvdXJ jZXMgMiAwI FINCi AgICAvTWVk aWFCb 3ggWzAgMCA 2MTIg QvzkRZ3OMX AgIC9 Pc324NH57j yA0ID NxZy1DEFC+ Pg0KZ E6kt7IdWDq 2IDAg p0QgWTtyAX w8L0Z pbHRlciAvR mxhdG VEZWNvZGUg L0xlb eo8tZMfFXT yPj4N HvDvp9KmVF FtDQp 8tB0u844bW hB9L9 B/GKAokLQ2 tVdei qCALV/SxjY cR0lQ IC+8zWDR2B JQVAz d25xc3XIYW TZAAW moJIrsATmH c3bPz Ky4BFi/vgL xAkn0 Z5cu3wyGcV cEEXM fxxn8/BM0B 341Bx RfdiV4ab5I fGqML oonv58FSKD BgOnf b5SqeXpPS0 BxRCW ZYy1n63Xln LMi/x 2k8cdZTR3/ w0mm0 iSGTy+u7+A X4AEL dQK4lonQBz /hfAR vn+LqH7YRy EEblL fxTMFh/VPq 88Y/O 7BvFmwYgmJ 66EuX cnPpYt++qf PtcUq xjET0iCBrx MdAWc xKtVjATVGp Bdyv4 HyyjMtJAad FnqRp qBox2jdhtS TXZxB RBN9YZmZSF wD+By vtc52Q3RuR qyRfq sn+h7O+Lra +LqHt y6kbtlKj6J UNSxV hHRgw8XYkD uDy4m 9L5HpR6xlr Gsyz3 9xdAoVH/e9 vBzPk GJMuk8MyPQ EqmHY P4w7rdA15Y P2I17 N7J1gkStQz fDJgL kwsIE/j12V BCaAF UaV5NH7Vdl cBDEV XALssOCNQs K0hOI W7OJ/tM4jb iNaaH FAdTuP5aJu 5KAg7 fvdN8rXpZi f1QQq HDQjLhgVBP P0DaC iQzQaTKwRO GI0iU 6ur2DuEpfQ JtEzG nS1IOjdGAq tFMDx 7c3x++xcCX Q6frM h6CyNYXtxU 55Lsa pAl+YB6Ac8 OUXXt 1UMrb0E4DW XmDIs bk07gl93IE pJ1fn GUycDK8VUx 6sN3a pJkKq+08ul pVsaV IkN5XLEB/j TpS0Z nYxZnv6O0m 8CrqF mfj03YSWDY rRXVr hTyjkWI7Q1 F1RbA LgtiRbUZgn gVFWe UWnHRGCqli 4nzd/ iem1k53xMe HEH7n uHJif4RdrK Dia35 JCi2eiD5BO KcT+A qhZ9TmyN/i dO+TD QOA1BcQal3 DXhSz aLr6HAuQUg apX7X ldh9DfH4s/ q2AHZ ZEKV+MwQRp T4KzH oip6pB1/xp WhQTG Ck1h4mUQeM WivAC JDL04esFlm i/v/H LEzL7AqrNV ZUJLh 8OiPAYBiEb 91RTI j1ec+IjcSI Cs7Dy WiNWKQ5ihf yDDwu Chh1y9JWtF 0/Wc0 Tq/3BPk5IE IktHX BXjMtln/u6 kw4Lg cbef6AV652 QICb9 q5IQZEeDtA sW5US w0SJSKRSK3 1UEJf e+yS4lGUhk eHwmR C4SHuGELr7 t0oOq Xs8QYYzP64 pk+P+ eyeH7WiRUY 4TNKZ vcwLPIxBiE WDJee j0GIc8+8ep Zo3SR YCUQGgroay 7Byli wq+JhMqgcM XiwaW hk8XG8wSFX sehce Zp9EUVFZFC 7TuFK pqvRkWeYY+ d0BYX 8JYOz0XmM8 V+q2E d2v6Tdlarx T9SYY rzEQes9bjG 7zZZy aJTCMiEhim sUbta tZEm0BOPJg DgTKF 2POOYZE+IE 0neHV Kps/FONVhT IQLQi XGho88owER wgxfe Q4wBLQ2uRx GKW+c 71FpdTG71r eLJIc A8ekMZGnJ6 8owZf K6Juq4LTu2 BYCxv tO034D+sA3 vdzJ/ COKh39QwrL JMDiw 9qcizkUWr0 kVhvV IvlPG1Utrb BAvCN Yp9rRveQnc eh2XG RZQxwxilnY wiCcl KsTFvokR9A mCyId kwvGBmrkdE H0Uxp J4269qKsHM CYLAM UZZjs1AcTE KDHHu DR8MkY+IcN NNnlS grQCXkk8we SwQeH WhSN71wr9o yqyIh rxwiK5nYRc rOAwY Oj9nrAE0xI 0nSfU 1HH6CQDXyL OJRgb Sc0NLBHFPt jJoyC hDDWEuPk2h JA6LO FYikUEKEaU Nvi+R LYjjRFRVGk miQ0N +xbwylhEWm LxxyG OmRXVK3hjL +3JK3 Rsh5++3/LR bEHZV Wnh6vGSuGg n1P5a 0Sl8ZwO9R/ bgxtj ZQtOGQq7YB gIm6s JCGhVlaOYX gIYek WWwuFSozOt XEf1f mPhgfaWPlD 3a+Hi FLM0UA7CTk a9wK0 NGB5r4DI42 0A60C 16/2jKLK3N RB7qP wvJab7Zoh+ ZiAi6 x1IWcImki3 7DgrK DrDGOyXmJp y+qH5 IzTLF+zLJ4 3Sl25 /6D5CoWMxA i3ExT /Z5d+H/yAG h9Dty wU0KRUnlrz be5oA 7WZ93CKjNj QNcEP iYL6cm9OcV zAGbg YiYAxinZsF nWKTF 3ne+annalisa/A/ CPStP iESUEGokJQ RqXSb VCCUIDQcWH ZcHFI FCn57rJ5Ft ZJmO4 LONvWMGwWK hHKMb 9EW0QQH8+w g4nGK zoItGsDty+ hroIQ OefwzIdi0g NgeXC sTagC6K8KI COB87 NssCoqOIUb suiUi hbbRognOA9 fMphe EXxnjtFuQz Nishl uhwXCwXvT1 DosCh o8Evyed+Hn Z+Ojm cYEDkJuelp 36iqy BWiYlkcqKw 8w4DH fvNT3X1Ave Qplzh bBBsQmJSgY nBkcM U7M6ff0j3B BwaVF EwMjhQZmT7 sSi2/ mC//4XxRqT Je4LB n3cJj5ayD6 NAg3Q vtHsNoz6cr 0s0ZD dDPDcXgr9P w7EnV t6cz7LndWV 6dr0a ZyT673nn5l x3l7Z Ozvd36+C/+ fZL4Z U3wx3GrLPT tDQpl bmRvYmoNCj cgMCB vYmoNCiAgP DwNCi AgICAvVHlw ZS9QY WdlDQogICA gL1Bh cmVudCAzID AgUg0 IZOLyUL1SN XNvdX JjZXMgMiAw IFINC iAgICAvTWV kaWFC r4juWbDzEL A2MTI cOmlhKI2WW CAgIC 9Av691TA38 cyA2I TRuQu9WLVE +Pg0K FF4jl6JrHK o4IDA nd0ZqRIhmM Dw8L0 ZpbHRlciAv Rmxhd GVEZWNvZGU gL0xl wse0oDQeJO k5Pj4 IWmEhh4XfM WFtDQ z4qFOcM6Xh OBZ+3 7p0N5hoZ9u qEHyN en57qFmYyo amaEj vvvAibCXRt GwFyY WSp99OCGbJ Q6h9I scbipBEic+ n852r hPYG9W8nIV dpgDd uV5ii12VgV JtG/m FRwd//BpsP ProPB uQ1CLZ5+cD 20WZw g1tle41qqm mvAUT 4+myOKBaQT xI4no OgfUzTT4nW gi1U/ cIkfxnBVfs CpxWX gsH9p2+38A +Isyi kNBw55EWN/ oDzGX zfxflRGMNg koQbl VsollMz4kG wEm/k xweWHWVbhk DNDz3 6HN8JXaze6 aGXPY 6PSZiU77Pn hllnA 1otNDcGrlX DDTys 5vrwcU1BmJ W1kJI dzzT/Q5kRf PsFWA V9EGJvSQIQ A8Sf4 jOygmUBH4w uRN3y 6nOiZL5xAQ 9xKkk S2Kn85+vZQ aWnWZ AvpHnPfD3o u7Lxg 5DCyeXNrxT qn0xj C+YSSn561P PEkjf t58Fb8bjq2 p8mEw ki2dHvHGzk RLPkc gQ/IabU0EH EGBNO JlqIcum7CL eq5lS ZPZY0dxV0h 4vWED RlVlq2EfbU Gx5Fx 5dXm1BApmy jBMe3 no1iYNtrMP A/tEB Fg3cwQKWd1 TAJmA rtFya151zz MuvGG 6E+KAI2Szb 7dwjy L6/cXkAIz/ j7m4c /LZSOY0iHV IsJzW H+3sDdx/P8 no6zw PXLi1y8drg I+nqv iDjQzJn7p2 +MAGGI 9mF6D/2ay5 QNRYO /ZdjU90mbY BSbRK xOcWydffKQ S380C 5bZ4LOfKMy 4/VYu YEy7lkW1ic pTQA4 ewlbsEB0xj IGAjj vYQY15m084 UJyDB 26wOwRwJ5M DlWx6 uKHhIMEXs8 GD94s JA3oMY3a1U ekjBO LcqpskvD76 4ZKRa UNdHcRZmG3 rk2gg Ar8mYBZRGm UyhVq QKKk9b5IQU s68ee jtAVw/F0yw YaD3k 1MU9Tsf8Wv gPeQ0 Ghk1lu6F5H gjroa 8A5iYTTOT5 xZIzJ RVF+ePl/9K upChY g+8ds6s5AD wV0Os iydwqxZlkW jRrCm 30CAahjSxy qwR3K 16IuSjgQrM nIrX0 NQuJ4ixdum Lip2I 8TevlOnY3M HO3Zn PhIY3CpUKI HsIga RolhUW07Az PKShJ pmk24CxmFP Pw4nE BsKvT0F6iW FTdTZ pzine5sS5x DKdZ+ fUp5lEBost sEV3z FzJ8U5gEex xx3e/ rsJWz4eDhd MMYEE U6ToyXnuOF DX8VU gn8fFvs6Gi GRE+P yNNDQMwkSt zKwCW x9KSeHJSR4 j8ey3 YZ8mkpLMeA 1+Nd8 fanKtaolHP TcM0M ICO5kSXz3P PaRDj H53oHGfGhQ eoa0W dGNPGTbi3S YEDse J3Q+U8WBBO 6U0Re +aDlcO8vlY xVlEX baQ8PrAx+C Dp6LM DKSef6n19O LA3/n 74KENd3/xT F2wG6 AZIhhos1QK VT095 ff8xcdSkER oPD2z EQk6Q0Azd3 DbYmS LdrkNuTxkM 6ReEB DSEzeCxUhy ryKBv EoQqPYxCc9 FioFl DyNBraAQsP aRD09 FgOctritXz 39aA0 hcV76s5/CI RnuSs xr9bOiykpp GFqI/ 2I59bFaI7F d2Qvm KLPT8jcdxW LNEYJ E4WxmE6h3d DaNkp UUYiM44Zy8 FsaYb 5W7LdCgXBf UfJKs A5p2r6cl73 yFATp /dEXwPIXZs u1VqK UTdhRVN2rz twwCJ DPek2YvQz1 t8J3+ DWtXrwiuFl iDBR1 IduSGzhbKs mLtWl 31lhj5Gg5n E919w OYmqT71eRA D1vZe Pd47MXJ9pB nrBJy tDPfj4l37/ hyiXl siS+if2oww tKFDs qZbrzr+cFK NUs3a J759yLFrq5 9RsJw muSUTtqLp2 HYC9d 1uEVpLvg6N w6Prc DLqjof9uJy B9U2g GlyjbSiNy/ UGBnW m/HWceysoo QzsWC xMa54U5oST 1n/t1 ejoBarcTu9 1liUF d0T7snXoXv gRaE6 fG+gRwx93Y qh+WK 99hOYLBQGp m7GpW 6YR3by3pOF PBeSJ PMSIisc64g nsV0v sPqyPrl9l5 0J0dj CRjXhiI5HZ rkNWR ysPN8jWY/W Ilaam 7AOjW07/Sd zf/QZ WCVViYVFzU fAXjC kAcBsM8fhV nbjwO 1gPQjDClWu 5Qjms b4hglJVmIV /YdTE BiyOS7hjk1 GX1cf LdalVsZQK+ 4ylYC 8GOA5GBFWH L+6NF Z1yOzuvuYU q+Eqz P9s5TEEKJ0 4HaMV xA8oSZT0Hg JI2Mc zZyFUBbkZ/ rrs5Y JRrasqlE0Y Kb+vF 86osN2o640 WC32v 1XMOplBwrO oz0BG xEcdjtRvAn wZ9tr 1Bby0KXXWB Brro7 SFsbbFFaG1 CY/Ax +07iLU5xYN a7n1z NaJBjGXJVx vuaGG Ekch/0K/kp oZrM4 IyM1j7hhvG lSqCd milYyTYwpj 7PuH6 aYBjvoGiu5 RpCbc rLBXrp8d9n V2IxM YRlIJIa30B VoVNu j3YDCAjiJ9 jvu1o mBbtNeP21l nnQHy bFROAySv/x zldsL SOhJAQp8Nb jxeQV cFPn5q3+3d L7vXO 37q4f/BcU3 Kwllb mRzdHJlYW0 NCmVu GV5ckr5WOT AwIG9 gzg5MPDW6Z A0KIC PlDX8ChRBy L1BhZ 2UNCiAgICA vUGFy UZ21FGHnMX BSDQo bVQMpA8Tik 291cm NlcyAyIDAg Ug0KI GCvUT8KPVM pYUJv eCBbMCAwID YxMiA 3OTJdDQogI CAgL0 NvbnRlbnRz IDggM CBSDQogID4 +DQpl bmRvYmoNCj EwIDA ik4VoTEpjN Dw8L0 ZpbHRlciAv Rmxhd GVEZWNvZGU gL0xl dct3sCJ1AA c+Pg0 KICBzdHJlY W0NCn iiqJiCu8b0 EIbvC /Q/DLCXFkh kkvqy xOoMa2uZem o0xp5 6YSTaYkKJL kk5VX 79DmlbcbJZ oBdbp DPVWjZh8yQ dGQpg G97WwzCPHU Hw6y8 eMdwnG5NkS jW8+Q 36id/DZJJh yeG8n /LE9clwQJx 2rIsF iQ6jzHN/Mathis SKFYy iTR8hRUEB+ fYjN4 NhM485qxUp z+Dv9 tYw69EDTh/ ezr/C 7xDnbJyx/N u7d7C 0c1bVpe53w 8VISZ bQnvILXwk4 7fqUZ nG/fnLitVn +tEOg l6d+9TQ94a vT/dp RTMlBZXZCp TTfas DolRHWwpV2 wsJtB 1Ty8npJjOZ bqRQ/ Xxhxp+0ZzD 8AdzA kbVlWNZ2Vg NOYwJ m1VirVkBLO K8qTy Wx6subqZLD /yXul hFnJYvRnXb eNVhr bU7gSK+7kR kQDgG NS3BKnodUr cbgaF qnREB0du0t 5+yWI WS6UiftgA8 SSO4P bdyEqvpHan AotGu ZYZdU5zYdr rx+Bw gP+/9pCx4R QmKT+ lCfo0xpM/t /AzTH 9i8cTESiQH LNJ79 3ut7Lq2mYq nSi8A krC5am201w YSg+q niiZJM+ITi +2hJB dXAmWRs58b R AhytgUcv3k KJ+EJ XgAhVUC4D1 UEXXy ihlYFrRxqR vrpGu e6F34rXzEu LSgjR HFWsT1IVdh rG7OY K45Zp4IJ1x raxGF e/j4Vmgk0V CUOi/ PDeu7ous+p tDV6N UTU8vqiWiA pDSo7 vIeywD33i+ yfI5z V5SpYFCizR pdiHX FlSyCfTDQ8 RZjsC mOkT1BKWnT s07YK eKP4omPzgQ XgW32 fR3yP1qG0P wNwcf zKdzg3r6qY I1VVA Y9KQIBDISn Cms8s qBKozBcdUb XmChU 1/cFBT1jfV sv8ew b2WkgpeCss Dcf0Q 13W/MasfID YKrOV fUQoHm+Tbm tqtHx HJf5jHC3A8 gtl9q 4/t78s2We7 xLJte iaxKz6s+IA xBmJm Aybg34x7a2 LJdw+ YokflbyVzi I3iBI WCkxGNYp5G rV03R C0bJz+99S3 C674N Ewq6rb2dJT 7AHwa dhJ3yi8xtO baUz9 uUjed1jfu3 XwSEt Y/Enfdoio3 UjwcN 628+GjCHM5 8Dif7 UN31C75fjW l/9SK FMf850jxC7 18wuq gaZO2yb4Sj ZWFtD QplbmRvYmo NCjEx GVFdd1UfHV ogIDw 8DQogICAgL 1R5cG WnDMXyQI3O ICAgI A9OZQLvweQ gMyAw IFINCiAgIC AvUmV do1QxZ0TnO DIgMC BSDQogICAg L01lZ NroHt79AVf wIDAg GiBnIXx6Lo 0NCiA vQDZpC47de GVudH MgMTAgMCBS DQogI D4+DQplbmR vYmoN CjEyIDAgb2 JqDQo gIFsgNzUwI Dc1MC AyNzggMjc4 IDM1N OA0CHMxCRT 2IDg4 SVC6SevmRT kxIDM zMyAzMzMgM zg5ID L3TUBpDlil MzMzI UF8RUDdZmz gNTU2 XOP4OpE2QJ YgNTU 7ROL7IdN5D TYgNT T1CEN0YjZ2 NTYgN WG4TNV5EVQ yNzgg GUt4RF9FVO A1ODQ jBVj1CZD2G iAxMD L2ZZX8XyX8 NjcgN zIyIDcyMiA 2Njcg FvHrPDy1KF A3MjI yQun5DZTcT CA2Nj gcFBQ4AHvq MyA3M nEnMpm1YBH 2NyA3 NzggNzIyID Y2NyA 2MTEgNzIyI DY2Ny N0GLVqNcS9 IDY2N mH4YHXjNHs gIDI3 OCAyNzggMj c4IDQ 4APD5WILvC zMzID Y8TpV4AIMf NTAwI JM2AwY1XVU gMjc4 DEJ7BhI7OI YgMjI kGDRpQoS9F DAgMj IyIDgzMyA1 NTYgN JL0QLV7BlD 1NTYg MzMzIDUwMC AyNzg dZPS8XQNkZ CA3Mj DuAPCuSD9Z ICA1M DAgNTAwIDM zNCAy NbXrMeW2VC U4NCA 4SMKoPQJ6I Dc1MC AyMjIgNTU2 IDMzM yAxMDAwIDU 1NiA1 NTYgMzMzID EwMDA nNlJ6NDDcJ yAxMD GvLOd9HKM0 MTEgN pErEWl7OZC yMjIg MjIyIDMzMy AzMzM mHlVpVKH6Q iANCi AgMTAwMCAz MzMgM CWaNOL9BWK gMzMz VEu9KKV1IX AgNTA yKBQ2SoDkD zggMz RjVFE6UeJ8 NTYgN GU0VKA4TrW yNjAg FUF0MCAhMb A3Mzc cYcnvSNC2Q iA1OD QgMzMzIDcz NyA1N TIgNDAwIDU 0OSAz MzMgMzMzID MzMyA NGmEeACk3T DUzNy AzMzMgMzMz IDMzM yAzNjUgNTU 2IDgz BST4XfZqFY M0IDY vXYL4WrlkF jY3ID P1EzO9Thym NjY3I HD1BaFbTGJ wIDcy AsL9AbbsUh Y3IDY 1MaT1CbvhP jc4ID C2TORuWlcw Mjc4I KvuEcU8BaP gNzc4 AO2PYBT6Uh ggNzc 8XJy4DDL3H zggNT c1KYv8XFH1 MjIgN zIyIDcyMiA 3MjIg CwH6XDK5Ew A2MTE yZSB6QQP6E iA1NT ClPMY9CMU3 NiA1N ISkIUy2NTO wMCA1 YKRaNUV4NI U1NiA 6RNNvVcw4V DI3OC AyNzggMjc4 IDU1N iANCiAgNTU 2IDU1 BeV5YHSpVJ U2IDU 3XdT2XUSpR TQ5ID CmHWF5TGTx NTU2I BP5AkO6ERY gNTAw AOJ6XfR6BG AgXSA VGsQdQD3fs g0KMT MgMCBvYmoN CiAgP DwNCiAgICA vVHlw YE4Fp188CE VzY3J slCZqpo0IT CAgIC 1Oo191DlLl ZS9Bc wtrsA3YLCZ gIC9B h1XmoiOvOU A1L0N hcEhlaWdod CA5MD WpAONfS4Ib dCAtM jEyDQogICA gL0Zs YWdzIDMyDQ ogICA wS0PpezRAE m94IF jdSR6aEUOq MTAxN MZ7SIGpRDo gICAg V0r8ZBvrH1 FuZ2x gCYBaF5Lbi VYgMA 0KICA+Pg0K ZW5kb 2JqDQoxNCA wIG9i jf3QIMW8SN 0KICA lXS4LsVQuO 0Zvbn HiU2RfgTmb ZS9Uc nVlVHlwZS9 CYXNl Ti0pcV5Gol lhbC9 FbmNvZGluZ y9XaW 8EvkNlGR9r b2Rpb mcNCiAgICA vRmly v2GGkVBpNU MwL0x sq2DKrNIjC DI1NQ 8RLGKcMC6R aWR0a HMgMTIgMCB SDQog DRDtU9Mgmj REZXN gjfjgmA5sM DEzID HmBp1DJUE+ Pg0KZ M6fo5GcYEn xNSAw XY4ggi0NEL BbIDc 6HKW6JSIyO jc4ID UkJnZ9ZmCl NTU2I RQ1CfJ7VUc gNzIy IDIzOCAzMz MgMzM rJWJ6UDT2Q DQgMj y0SSPsNlWd NzggM wu0TKN9UpJ 1NTYg EGO8RCB5Kw A1NTY yOPA3VCD6E iA1NT TzAZW2PFM4 NiAzM zMgMzMzIDU 4NCAN RkYhEHh3KB U4NCA 7HHLiGQr6A DcyMi O6BiNzSwOz IDcyM jC8HpnyDpA xIDc3 WBL5WgVsWl c4IDU 4DnV3WhXuC jExID ewGxZ6TdKr Nzc4I VE3VpR3Ife gNzIy JKN6CnA0JU EgNzI dLWZ6JaV8E DQgNj V8RPQ2UgN6 MTEgD QogIDMzMyA yNzgg VkOuMBL8LT A1NTY cQyQjRFW7S iA2MT GtLDS4RCOe MSA1N TYgMzMzIDY xMSA2 TFQbMlg4DX I3OCA 7XNMtJen5Y Dg4OS F3ZQRdYyUo IDYxM UJ5BIIzTuf 5IDU1 NiAzMzMgNj ExIDU 8AsY0LdzjH TU2IA 8WZJN9NJZr NTAwI OJ1HLKlXRH gMzg5 WWR1JBQ4UR AgNTU 1TAe8GOZhZ zggNT I6UWJiLNWz MDAwI XW5JyO3EYS gMzMz IDEwMDAgNj Y3IDM zMyAxMDAwI Dc1MC K4SBDqErUr IDc1M CAyNzggMjc 4IDUw IHR3SUEnQp UwIDU 1NiANCiAgM TAwMC AzMzMgMTAw MCA1N TYgMzMzIDk 0NCA3 NTAgNTAwID Y2NyA yNzggMzMzI DU1Ni O2VGZvCLM6 IDU1N iAyODAgNTU 2IDMz ChZ3VnwgHi cwIDU 4SmW7DMYtM zMzID uoYzY6KCUq NDAwI ZW1XIFpUpW gMzMz IDMzMyANCi AgNTc 9RPE5BpQeI zMgMz MzIDMzMyAz NjUgN WG9GKdgYTR 4MzQg NOW0UHDmZB A3MjI gNzIyIDcyM iA3Mj IgNzIyIDcy MiAxM DAwIDcyMiA 2Njcg XwA8XWV6Er A2Njc vAal2MTX6N CAyNz coNdb8CXkt MiA3M eIyKxb4AW3 KICA3 AknoGgv3EX c3OCA 2QjfrHZz1R Dc3OC S9JtZqFvAp IDcyM bA8AvLrAbD 3IDY2 KcD2MEQhIW U2IDU 5ImE9NXKyH TU2ID N7QuO5KBQt ODg5I QV4FpA5GMP gNTU2 PKV0XbY2YG YgMjc 2GUX4QYBmR zggMj z1VFHpXIEZ CiAgN jExIDYxMSA 2MTEg NjExIDYxMS A2MTE fRXB9QYVjQ SA2MT EgNjExIDYx MSA2M MPcNVK2LUY xMSA1 NTYgXSANCm VuZG9 vhm6EHUUjW CBvYm oNCiAgPDwN CiAgI CAvVHlwZS9 Gb250 TDEvT1NvhR Rvcg0 JFCYtAI8Hj 250Tm SuZW5Iaxpl bCxCb 2xkDQogICA gL0Fz C3XnqZG2UL UvQ2F tXNWhR9x4D DkwNS 6EJGUxIL50 IC0yM TINCiAgICA vRmxh W8UlVhSXFj AgICA pAc0flJBXv 3ggWz AgLTIxMiAx MDAwI WbmKQ5LMhB gICAv SXRhbGljQW 5nbGU sZX3PyAClM iAwDQ ogID4+DQpl bmRvY qmJRpO4UFE gb2Jq BMncVPc5XO ogICA uM0P2xJPyI m9udC 8QtLV9eFJw L1Ryd EAWmXNpU7C hc2VG o059N3WasJ FsLEJ nwUKnXL7ij 2Rpbm klK6drTW8c aUVuY 94mbW1tIPq gICAg S3RjpeV7S1 hhciA vIR4WKKY9H 2hhci AyNTUNCiAg ICAvV 2lkdGhzIDE 1IDAg Kb0WYKNdSP 9Gb25 2MJKeA2Szu HRvci AxNiAwIFIN CiAgP f7NNwZjBO2 iag0K MTggMCBvYm oNCiA jWoO7XTSqL DkyID X2SoRrDoke NDkzI YY9OmQ4SwE gODY3 OEl1BGWsCB MgMzY 6LEI6YSM6D TUgNz B9BFQ9UXO4 MDQgM hqfPSU2WsN 1NzUg CRy4TOI2UX A1NzU nQXt7RPH2J SA1Nz CkMUx6CZS0 NSA1N zUgMjcxIDI 3MSA3 MDcgDQogID cwNyA 2KKqwRNP9B Dk1NC O9WWQlScTt IDYyN MP3IoarDTU yIDUy LHN3JCFwHl Y2IDM fTpZ0ZWFmB jQ5ID CqHNE4UYor NzkwI Qc2NMX2NPZ gNzU4 XBH3ZfV6Ra EgNTg 2SVnhOrZ7P jcgMT JsZMJ2FAWs NjA3I DYwNyANCiA gMzY5 IDQzNiAzNj kgNzA 3IDQxNSAzM TQgNT H1RTVwTJI9 ODAgN nK6EEK0NEA zODMg JqU7VHRnKj AyODQ xJcg2DYF7C SAyOD TpRSC3VDOu NSA2M TEgNjIwIDY xOSAz OTggNDQwID M4OSA 2MDUgNTQyI Dc5Ny R3YWDbJDga IDUzO KL7HjjcCkG 5IDMy NiAzNjkgNz A3IDM iWrZ0WtVlQ jQ2ID E5FWS0KcUl NDkzI YmkWrG4QWO gNDA2 QXP5YiYdSo U2IDU 2MSAzNDQgO TQwID Q1BaV7QXfk NjQ2I VJ7VbLjYAX gMjkw TWU4WjH3JV MgNDI yIDUwMCANC iAgMT AwMCAzODMg NzcxI QO7HJCuAOE gOTI0 IBF1LcR3Ch kgNjA 3QTX9DtJuV jcgNT y3BBS3FTU8 NTYgN Uu5XYLiAnW 0ODUg WCUoYDb7UP A0MTA gNTgxIDcwN yA0MD DsYGp1DBMj NSAzO XXrHdS6UJQ wNCA0 MDQgMzAzIA 0KICA 0URGfNPR1T DI3MS AyMTUgMzk0 IDQ1N wP6LQNtWYI yIDk2 XNV8DkyhJL M4IDc pMrU5UCVmX zAzID vhEeP5LRWs NzAzI GsnNMD3RrU gNTMy RCWwCrH9Aq IgNTM yIDMxNyAzM TcgMz U3RYTzBpO4 MzcgN ubiFWa7FTU NCiAg YuY0IIw7DM A3NTg sKiJ8GCbeE yA3NT ggNzIzIDcy MyA3M jMgNzIzIDY wNyA2 UZPwCvI9NZ UzOCA 5HhxhRAL5I DUzOC A0QxyxFTS9 IDgyO ZW2CFMqUSO xIDU0 KFQ9KELrBC QxIDI 4NCAyODQgM jg0ID T7MXJ1ABBu DQogI ZCxVBL5APH gNjEx CHCsUJA8KB EgNjE hSXlzIrJ6Y TEgNj C8WVYuXHP5 MDUgN kU0OZVnHAG 2MjAg HYA3GP8dYS plbmR zTeoZRoK9B DAgb2 JqDQogIDw8 DQogI EFaI1D1nSJ vRm9u fOUga2RtiH B0b3I NCiAgICAvR m9udE 2rrXWhU7Wz b2VVS ZqHu7hfCJg gICAg H4TbO5PacC AxMDc 8M2McbNcms WdodC JmDUc0J0Pu c2Nlb vObPDE6ZP4 KICAg CJ2RqOHgif AzMg0 QYJKgON3Zf 250Qk JveCBbMCAt MjUxI DEyNTYgMTA 3OV0N CiAgICAvSX RhbGl jNP2crVThV C9TdG VtViAwDQog ID4+D QplbmRvYmo NCjIw ENJvn6WqWW ogIDw 8DQogICAgL 1R5cG OjMr4nlZ2A dWJ0e CYrV4JklHS UeXBl M7Nwz8IQn1 50L1N kC46kJZtvE m9sZC 9FbmNvZGlu Zy9Xa I3UppUjUT7 jb2Rp bmcNCiAgIC AvRml wh8WOqXQjU DMwL0 lng2OXvPLh IDI1N H0GRGMhFL3 XaWR0 aHMgMTggMC BSDQo kZDTdD4Axy nREZX ByakqijO9c IDE5I TCjOf7IGVW +Pg0K XG5jw3DdDN oyIDA sh6DlSOhuN Dw8DQ mcNBDfW6Wn b2NTZ YHjZd4AESV vVGV4 nR4JhSBvKZ NdDQo rXSMcU3Idr nQgPD rcC0SlWJR6 IDAgU y8AUYYcVXT gL0Yx SRJ0XSWvEb 0KICA pSAHsM2PqW DIwID AgUj4+DQog ICAgL 6vDOommY7A gPDwg Xz1XRbVtNb 4NCmV mOZ0ctb4TG yAwIG 5cya4GFDP5 PA0KI ZKaHJ9GwVK lL1Bh T0EfFYitNY AgL01 wYZqyQw69A FswID AgNjEyIDc5 Ml0NC fNfWJFzO3g kcyBb IDUgMCBSID cgMCB SIDkgMCBSI DExID AgUiBdDQog ICAgL 6AkrL00MTO NCiAg Kr6FIyMeYS 9iag0 KMjEgMCBvY moNCi AgPDwNCiAg ICAvR pegk4AlZjP gMCBS DQogICAgL0 xhc3Q gMjIgMCBSD QogIC SaO3OppE51 IDENC uPaFz7WVbU uZG9i km2NPfRrEH BvYmo NCiAgPDwNC iAgIC BqHXo5qNUh UHJvZ 0Kcl4VxYf9 0ZXMg SuqxETC9NG JkbyB Gg72lzCnjM VRyZW pvcywgTUQg YXQgO L3bQh0fDVA 4ICAz OjMwIFBNKQ 0KICA mER7TVKA8S FsgNS EgPNGaL9zM WiAwI DYxNiBudWx sIF0N CiAgICAvUG FyZW5 0IDIxIDAgU g0KIC A+Yo4WKI2j b2JqD QoyMyAwIG9 iag0K VTI8HI3DKJ 5ndGg fBnPvZ6T3v GUvTW N0BCGflYYu U3Vid CtwUT6CPSd +Pg0K ICBzdHJlYW 0NCjw /xUNjQ1fiu CBiZW pboe0b07x/ IiBpZ M2xRoIMOO5 wQ2Vo wAw0kcHKfw 5UY3p rYzlkIj8+C jx4On pkhA3yuMOr eG1sb nY9jN0uFCO vYmU6 mhG9qBF1UA 8iPgo 8cmRmOlJER iB4bW xuczpyZGY9 Imh0d PJ5Qa69q6c udzMu i7EeZfO1PC kvMDI vMjItcmRmL XN5bn DydH5qgnRw Pgo8L 3JkZjpSREY +Cjwv sVq4cGQlTM RhPgo 5E1mnWVLsV XQgZW 0qNZJ8Dz7+ CmVuZ LO1urKlqL5 KZW5k o7IuXBkjYY AwIG9 eag3WNAcSV iAgL1 Z2fYAkU8I1 YWxvZ z6HUPUhIFR nZXMg MyAwIFINCi AgL1B vB7XYk2EiS 1VzZU 91dGxpbmVz DQogI T8SiWVqbP5 lcyAy MSAwIFINCi AgL01 ldGFkYXRhI DIzID EhWk4RFOFr T3Blb kFjdGlvbiB bIDUg RJGYCL9RBL ogbnV sbCBudWxsI G51bG kcVU0MHm4T CmVuZ X8kxf1YyZN lZg0K RYLqDR3TJC AwMDA oGXCeYJI5F TUzNi BmDQowMDAw MDAwM YN1XLMuNKZ wIG4N CjAwMDAwMT IxNTg gMDAwMDAgb g0KMD AwMDAxMjMw MyAwM DAwMCBuDQo wMDAw LVKhMZe6OY AwMDA oAP3NLoKeI DAwMD K8FJTxQKCd MDAgb o8COHHzOYE wMjc4 NiAwMDAwMC BuDQo uNUAcKUL3S zc3ID KlXOVgSE2A CjAwM LYbKSC8FIA gMDAw UVGsvr2DER AwMDA pXxh8YJPeG DAwMC BuDQowMDAw MDA3M BS4EKDiNSD wIG4N CjAwMDAwMD c5NjM gMDAwMDAgb g0KMD AwMDAwODEw MSAwM DAwMCBuDQo wMDAw ELB9JAG0EE AwMDA pMT4MLtJaJ DAwMD kyNjMgMDAw MDAgb q8MLZNnGWZ wOTQ0 NiAwMDAw BuDQo wMDAwMDEwN DEwID SnYMWeLQ2C CjAwM SThIDS2HVR gMDAw WRJsnv7BZC AwMDA xMDgwMCAwM DAw BuDQowMDAw MDExN zYxIDAwMDA wIG4N CjAwMDAwMT E5Njg gMDAwMDAgb g0KMD AwMDAxMjQz MiAwM DAwBuDQo wMDAw MDEyNTEzID AwMDA gNI9QVoImY DAwMT A4JINcJYNr MDAgb l1IETVbIYN xMjk2 NSAwMDAwMC BuDQp 0cmFpbGVyD Qo8PA 0XA5ReppYx MjUNC i7Fk873DXQ 0IDAg Qi9WT1vmAm 8gMSA bQALMEa0PL Fs8Nj V1GVW6NLCb N2JhM 4AiYiu1E3M kYjY5 MhXzZHU7Jg U+PDY tPjK2SKIzC TdiYT RuVUZ3PHVz ZGI2O JN7DZlyEQZ 1Pl0g DQo+Pg0Kc3 RhcnR 4cmVmDQoxM zEzNA 9OZNUEB7HH Cg== ID Date Data Source -[id number] 04/26/2018 07:42:43 PM [facility] Name Value Range Interpretation Description Data Sup porting Code Source(s) Document(s ) Alanine 44 U/L <33 H [facility] [Enzymatic Hospital activity/volume] in Serum or Plasma ID Date Data Source -[id number] 04/26/2018 07:42:43 PM [facility] Name Value Range Interpretation Description Data Sup porting Code Source(s) Document(s ) Aspartate 72 U/L <32 H [facility] [Enzymatic Hospital activity/volume] in Serum or Plasma ID Date Data Source -[id number] 04/26/2018 07:42:43 PM [facility] Name Value Range Interpretation Description Data Sup porting Code Source(s) Document(s ) Complement C3 159 90-180 [facility] [Mass/volume] mg/dL [facility] in Serum or Hospital Plasma ID Date Data Source -[id number] 04/26/2018 07:42:43 PM [facility] Value Range Interpretation Description Data Sup porting Code Source(s) Document(s ) Complement C4 23 mg/dL 10-40 [facility] [Mass/volume] [facility] in Serum or Hospital Plasma ID Date Data Source -[id number] 04/26/2018 07:42:43 PM [facility] Value Range Interpretation Description Data Sup porting Code Source(s) Document(s ) Creatinine 1.05 0.4-1.0 H [facility] [Mass/volume] mg/dL [facility] in Serum or Hospital Plasma Glomerular 55 >60 L [facility] filtration mL/min/1 [facility] rate/1.73 sq .73m2 Hospital M predicted among non-blacks [Volume Rate/Area] in Serum or Plasma by Creatinine-ba sed formula (MDRD) Glomerular 64 >60 [facility] filtration mL/min/1 [facility] rate/1.73 sq .73m2 Hospital M predicted among blacks [Volume Rate/Area] in Serum or Plasma by Creatinine-ba sed formula (MDRD) ID Date Data Source -[id number] 04/26/2018 07:56:44 PM [facility] Value Range Interpretation Description Data Sup porting Code Source(s) Document(s ) Erythrocyte 23 mm/hr <30 [facility] sedimentation [facility] rate Hospital ID Date Data Source -[id number] 04/26/2018 08:27:51 PM [facility] Value Range Interpretation Description Data Sup porting Code Source(s) Document(s ) Leukocytes 4.7 4-10 [facility] [#/volume] in 10*3/uL [place] Blood by Hospital Automated count Erythrocytes 4.27 4.1-5.3 [facility] [#/volume] in 10*6/uL [place] Blood by Hospital Automated count Hemoglobin 13.1 11.5-15 [facility] [Mass/volume] in g/dL [address] [place] [address] Hematocrit 36.9 % 36-45 [facility] [Volume Fraction] [facility] Blood by Hospital Automated count [facility]throcyte mean 86.2 [facility]L 80[facility] [place] volume [Entitic Hospital volume] by Automated count Erythrocyte mean 30.7 pg 27-33 [facility] corpuscular [place] hemoglobin Hospital [Entitic mass] by Automated count Erythrocyte mean 35.6 32.0-36 [facility] corpuscular g/dL .0 [place] hemoglobin Hospital concentration [Mass/volume] by Automated count Erythrocyte 15.3 % 11.5-14 H [facility] distribution .5 [facility] width [Ratio] by Hospital Automated count Platelets 268 150-400 [facility] [#/volume] in 10*3/uL [facility] Blood by Hospital Automated count Differential cell [facility] count method - [facility] Neutrophils/100 64 % [facility] leukocytes in [facility] Blood by [facility] Automated count Lymphocytes/100 17 % [facility] leukocytes in [facility] Blood by Hospital Automated count Monocytes/100 12 % [facility] leukocytes in [facility] Blood by [facility] Automated count Eosinophils/100 2 % [facility] leukocytes in [facility] Blood by Hospital Automated count Basophils/100 1 % [facility] leukocytes in [facility] Blood by Hospital Automated count Neutrophils 3.06 1.8-7.0 [facility] [#/volume] in 10*3/uL [place] Blood by Hospital Automated count Lymphocytes 0.78 1.2-4.0 L [facility] [#/volume] in 10*3/uL [facility] Blood by [facility] Automated count Monocytes 0.55 0-0.8 [facility] [#/volume] in 10*3/uL [place] Blood by Hospital Automated count Eosinophils 0.09 0-0.5 [facility] [#/volume] in 10*3/uL [facility] Automated count Basophils 0.05 0-0.2 [facility] [#/volume] in 10*3/uL [facility] Blood by [facility] Automated count Variant 3 % [facility] lymphocytes/100 [facility] leukocytes in Hospital Blood by Manual count Myelocytes/100 1 % [facility] leukocytes in [facility] Blood by Manual Hospital count Lymphocytes 0.14 0 H [facility] [#/volume] in 10*3/uL [place] Blood [facility] Myelocytes 0.05 0-0 H [facility] [#/volume] in 10*3/uL [place] Blood by Manual Hospital count Poikilocytosis [facility] [Presence] in [place] Blood by [facility] microscopy ID Date Data Source -[id number] 04/26/2018 08:00:[address] [facility] Hospital Name Value Range Interpretation Description Data Source(s ) Supporting Code Document(s ) Protein [facility] [Mass/volume] University in Urine [facility] Creatinine [facility] [Mass/volume] [facility] in Urine [facility] Protein/Creati [facility] [Mass [facility] Ratio] in Hospital Urine ID Date Data Source -[id number] [facility] Value Range Interpretation Description Data Sup porting Code Source(s) Document(s ) Color of Urine [facility] Clarity of Urine [facility] Specific gravity 1.003-1.03 [facility] of Urine by 0 [place] Refractometry [facility] automated pH of Urine by 5.0-8.0 [facility] Automated test University strip [facility] Protein <10 [facility] [Mass/volume] in University Urine by Hospital Automated test strip Glucose Negative A [facility] [Mass/volume] in University Urine by Hospital Automated test strip Ketones Negative A [facility] [Mass/volume] in University Urine by Hospital Automated test strip Bilirubin.total Negative A [facility] [Presence] in University Urine by Hospital Automated test strip Hemoglobin Negative A [facility] [Presence] in University Urine by Hospital Automated test strip Leukocyte Negative A [facility] esterase [facility] [Presence] in Hospital Urine by Automated test strip Nitrite Negative A [facility] [Presence] in University Urine by Hospital Automated test strip Leukocytes 0-5 [facility] [#/area] in University Urine sediment Hospital by Automated count Erythrocytes 0-3 [facility] [#/area] in University Urine sediment [facility] by Automated count ID Date Data Source -[id number] 04/26/2018 08:08:49 PM EDT [facility] Value Range Interpretation Description Data Sup porting Code Source(s) Document(s ) Color of Urine [facility] Clarity of [facility] Urine [facility] Specific 1.015 1.003-1.03 [facility] gravity of 0 [place] Urine by [facility] Refractometry automated pH of Urine by 6.0 5.0-8.0 [facility] Automated test [facility] strip [facility] Protein 30 <10 H [facility] [Mass/volume] mg/dL [facility] in Urine by Hospital Automated test strip Glucose Negative [facility] [Mass/volume] [facility] in Urine by Hospital Automated test strip Ketones Negative [facility] [Mass/volume] [facility] in Urine by Hospital Automated test strip Bilirubin.total Negative [facility] [Presence] in University Urine by Hospital Automated test strip Hemoglobin Negative [facility] Automated test strip Leukocyte Negative [facility] esterase [facility] Urine by Automated test strip Nitrite Negative [facility] Automated test strip Leukocytes 1 /HPF 0-5 [facility] [#/area] in [facility] Urine sediment [facility] by Automated count Erythrocytes 3 /HPF 0-3 [facility] [#/area[facility] Urine sediment [facility] by Automated count Epithelial 3 /HPF None A [facility] cells.squamous [facility] [#/area] in Hospital Urine sediment by Automated count Mucus [#/area] None A [facility] in Urine [place] sediment by Hospital Microscopy low power field ID Date Data Source -[id number] 04/26/2018 08:13:09 PM EDT [facility] Name Value Range Interpretation Description Data Sup porting Code Source(s) Document(s ) Protein 28 mg/dl [facility] [Mass/volume] University in Urine [facility] Creatinine 203.7 [facility] [Mass/volume] mg/dL [facility] in Urine [facility] Protein/Creati 0.14 [facility] nine [Mass mg/mg{cre University Ratio] in at} Hospital Urine ID Date Data Source [id number] 04/20/2018 01:25:00 PM EDT [facility] Service Date and Time: 04/20/2018 1353Te chnologist: Neville Requested: DIGITAL WOMAN SCREEN MAMMOReason for Patient Vis it: Z12.31 SCR MAMMOReason for Exam: Z12.31 SCREENING MAMMOPatient History The amina ent states she has not had a clinical breast exam in over a year. Patient is postme nopausal. No known family history of cancer. 3D TOMOSYNTHESIS WAS PERFORMED. Digital Woman Screen Mammo: April 20, 2018 - Exam #: [id number] Bilateral CC and MLO view(s) were taken. Technologist: Richa Hoffman, Techn ologist Prior study comparison: 2014, bilateral digital mammo screening bila t. FINDINGS: The breast tissue is heterogeneously dense. This may lower the sensitivity of mammography. There has been no change in the appearance of th e mammogram from the prior studies. There is a moderate amount of residual fibrogl andular tissue which is fairly symmetric. There is no interval development of prabha nant mass, areas of architectural distortion, or clustered microcalcific ation typical of malignancy. Assessment: BI-RADS/ACR category 1 mammogram. Negati ve. Recommendation Routine screening mammogram in 1 year (for women over age 40). This mammogram was interpreted with the aid of an FDA-approved computer-aided dectection system. Electronically Signed By: John Jacobs MD 05/14/18 1500 DD: PATRICIA 05/14/2018 1500DT: MARIAM 05/14/2018 1500DS: PATRICIA 05/14/2018 1500 Name Value Range Interpretation Code Description Data Maryan rce(s) Supporting Document(s ) ID Date Data Source [id number] 04/18/2018 12:22:00 PM EDT [facility] Name Value Range Interpretation Description Data Sup porting Code Source(s) Document(s ) WHITE BLOOD 3.6 10 4.0-10.0 L [facility] Medical [place] RED BLOOD COUNT 4.30 10 4.00-5.[address] HEMOGLOBIN 12.7 12.0-15. N [facility] g/dl [address] [place] [address] HEMATOCRIT 37.0 % 36.0-47. N [place] [address] [facility] Center MEAN 86.0 fl 80.0-96. N [facility] CORPUSCULAR [address] [place] [address] VOLUME Center MEAN 29.5 pg 27.0-33. N [facility] CORPUSCULAR [address] [place] [address] HEMOGLOBIN Center MEAN 34.3 32.0-36. N [facility] CORPUSCULAR HGB g/dl [address] [place] [address] RED CELL 13.9 % 11.5-14. N [facility] DISTRIBUTION 5 Medical WIDTH Center PLATELET COUNT, 257 10 150-450 N [facility] NEUTROPHILS % 52.3 % 36.0-66. N [address] LYMPH % 21.6 % 24.0-44. L [address] MONO % 19.1 % 0.0-5.0 H [facility] EOS % 5.3 % 0.0-3.0 H [facility] BASO % 1.1 % 0.0-1.0 H [facility] IMMATURE 0.6 % 0-3.[address] [facility] GRANULOCYTE % [facility] Center NUCLEATED RED 0.0 % 0-0 [facility] BLOOD CELL % [facility] NEUTROPHILS # 1.9 10 1.8-7.7 N [facility] LYMPH # 0.8 10 1.5-4.5 L [facility] MONO # 0.7 10 0.0-0.8 [facility] EOS # 0.2 10 0.0-0.50 N [facility] BASO # 0.0 10 0.0-0.2 [facility] ID Date Data Source [id number] 04/18/2018 12:34:00 PM EDT [facility] Name Value Range Interpretation Description Data Sup porting Code Source(s) Document(s ) PROTHROMBIN 14.2 12.1-14. N [facility] TIME SECONDS 4 [facility] INR 1.08 [facility] THERAPUTIC HUMAN INR VALUES INDICATIONS NORMAL RANGES PROPHYLAXIS/TREATMENT OF: VENOUS THR OMBOSIS 2.0-3.0 PULMONARY EMBOLISM 2.0-3.0 PREVENTI ON OF SYSTEMIC EMBOLISM FROM: TISSUE HEART VALVES 2.0-3.0 AC [place] MYOCARDIAL INFARCTION 2.0-3.0 VALVULAR HEART DISEASE 2.0-3.0 ATRIAL FIBRILLATION 2.0-3.0 MECHANICAL VALVES(HIGH RISK) 2.5 -3.5 RECURRENT MYOCARDIAL INFARCTION 2.5-3.5 PARTIAL THROMBOPLASTIN TIME 32.2 SECONDS 25.4-37.6 [facility] ID Date Data Source [id number] 04/18/2018 12:51:00 PM EDT [facility] Name Value Range Interpretation Description Data Sup porting Code Source(s) Document(s ) AST/SGOT 60 U/L 7-37 H [facility] ALT/SGPT 54 U/L 12-78 N [facility] ALKALINE 78 U/L 45-[address] [facility] PHOSPHATASE [facility] BILIRUBIN,TOTA 0.9 0.2-1.0 [facility] L MG/DL [facility] BILIRUBIN,DIRE 0.2 0.0-0.[address] MG/DL [facility] TOTAL PROTEIN 7.6 6.4-8.2 [facility] GM/DL [facility] ALBUMIN 3.4 3.2-5.[address] [facility] GM/DL [facility] ALBUMIN/GLOBUL 0.81 1.00-1.9 [facility] IN RATIO 3 [facility] ID Date Data Source [id number] 04/23/2018 11:12:00 AM [facility] system Name Value Range Interpretation Description Data Sup porting Code Source(s) Document(s ) TPMT Enzyme 137 230-400 N [facility] 3-Tnweax-fqti 5100 <5700 N [facility] Testing performed at reference lab . Rep ort copy to follow on a separate form. 04/23/18 REF LAB#:[id number] ID Date Data Source [id number] 04/23/2018 12:36:00 PM EDT [facility] Name Value Range Interpretation Code Description Data Maryan rce(s) Supporting Document(s ) 6-TGN 137 N [facility] 6MMPN 5100 N [facility] Testing performed at reference lab . Rep ort copy to follow on a separate form. 04/23/18 REF LAB#:[id number] ID Date Data Source X ray : Chest 04/13/2018 05:57:04 PM EDT eCW1 ([facility]) Name Value Range Interpretation Description Data Sup porting Code Source(s) Document(s ) Laboratory X ray : Chest eCW1 studies (set) ([facility]) ID Date Data Source [id number] 04/12/2018 10:20:06 AM EDT [facility] Vital Signs Blood Pressure: 151/90 Patient History Medical History:HypertensionHypothyroidismLiver inflammationGallbladder removedSurgical History:Hysterectomy (Complete)Gallbladd er removedHeart ablasionLeft bunion surgerySocial/Personal History: Smoking Status: former smokerCurrent Problems: DENTAL CARIES EXTENDING INTO PULP (ICD-521.03) (DCI48-G62.63)Current Medications: * LEVOTHYROXIN * IMURAN * LOSARTEN * METOP ROLOL * NORVASC Current Allergies: * PENICILLIN (Critical)* ASA (Critical)Pas t Medical History:(reviewed - no changes required) HypertensionHypothyroidismLive r inflammationGallbladder removedDental Chart Note: Type - CDT Code - Description E - Pre-Exist Hiram - Porcelain Fused To High Barrett Metal on Tooth # 10 - perform ed by Melinda Pierre E - Pre-Exist Bridge - Abutment on Tooth # 6 - performed by Melinda López E - Pre-Exist Missing - Hiram and Root on Tooth # 32 on Tooth Mathis rface O on Root Region XR - performed by Melinda Pierre E - Pre-Exist Missing - Hiram and Root on Tooth # 16 on Tooth Surface O on Root Region XR - performed by Melinda Pierre - Pre-Exist Missing - Hiram and Root on Tooth # 31 on Tooth Mathis rface O on Root Region XR - performed by Ignacio, Melinda E - Pre-Exist Bridge - Abutment on Tooth # 4 - performed by Melinda Pierre E - Pre-Exist Bridge - Abutment on Tooth # 7 - performed by Melinda Pierre T - D7140 - Extractio n, erupted tooth or exposed root (elevation and/or forceps removal) on Tooth # 12 - performed by Melinda Pierre - Pre-Exist Root Canal on Tooth # 6 on Root Region A - performed by Melinda Pierre E - Pre-Exist Missing - Hiram and Root on To oth # 5 on Tooth Surface O on Root Region XR - performed by Melinda Pierre F - D0 180 - Comprehensive periodontal evaluation - new or established patient - performed b Melinda Maldondao B - D0150 - Comprehensive oral evaluation - new or e stablished patient - performed by Susie Briscoe DDS E - Pre-Exist Missing - Hiram and Root on Tooth # 19 on Tooth Surface O on Root Region XR - performed by Tania Pierre E - Pre-Exist Missing - Hiram and Root on Tooth # 2 on Tooth Surface O on Root Region XR - performed by Melinda Pierre - Pre-Exist Root Canal on Tooth # 4 on Root Region A - performed by Melinda Pierre E - Pre-Exist Resin-Based Com posite - Direct on Tooth # 29 on Tooth Surface OB - performed by Melinda Pierre - Pre-Exist Decay on Tooth # 14 on Tooth Surface MO - performed by Melinda Pierre - Pre-Exist Resin-Based Composite - Direct on Tooth # 15 on Toot h Surface - performed by Melinda Pierre E - Pre-Exist Resin-Based Composite - Direct on Tooth # 3 on Tooth Surface B - performed by Melinda Pierre E - Pre- Exist Resin-Based Composite - Direct on Tooth # 1 on Tooth Surface MOD - performed by Melinda Pierre E - Pre-Exist Root Canal on Tooth # 10 on Root Region A - perform ed by Melinda Pierre - Pre-Exist Resin-Based Composite - Direct on Tooth # 28 on Tooth Surface B - performed by Melinda Pierre - Pre-Exist Missing - Hiram and Root on Tooth # 17 on Tooth Surface O on Root Region XR - performed by Melinda Pierre - Pre-Exist Resin-Based Composite - Direct on Tooth # 13 on Tooth Surface - performed by Melinda Pierre B - D0210 - Intraoral , complete series of radiographic images - performed by Melinda Pierre - Pre- Exist Missing - Hiram and Root on Tooth # 30 on Tooth Surface O on Root Region XR - p erformed by Melinda Pierre - Pre-Exist Resin-Based Composite - Direct on Tooth # 20 on Tooth Surface MO - performed by Melinda Pierre - Pre-Exist Resin-B ased Composite - Direct on Tooth # 9 on Tooth Surface MIDFL - performed by Manny Pierre - Pre-Exist Hiram - Porcelain Fused To High Barrett Metal on Tooth # 11 - perf ormed by Melinda Pierre T - D2392 - Resin-based composite, 2 surfaces, poste rior on Tooth # 14 on Tooth Surface MO - performed by Melinda Pierre - Pre- Exist Resin-Based Composite - Direct on Tooth # 8 on Tooth Surface MIDFL - performed b y Melinda Pierre - Pre-Exist Decay on Tooth # 3 on Tooth Surface MO - performe d by Melinda Pierre - Pre-Exist [employer] on Tooth # 3 on Tooth Surfac e OD - performed by Melinda Pierre - Pre-Exist Bridge - [place] on Tooth # 5 - performed by Melinda Pierre - Pre-Exist Root Canal on Tooth # 7 on Brook t Region A - performed by Melinda Pierre - Pre-Exist Missing - Hiram and Root o n Tooth # 18 on Tooth Surface O on Root Region XR - performed by Melinda Pierre - Pre-Exist Missing - Hiram and Root on Tooth # 21 on Tooth Surface O on Root Re gion XR - performed by Melinda Pierre - Pre-Exist Resin-Based Composite - Direct on Tooth # 12 on Tooth Surface MOD - performed by Melinda Pierre T - D239 2 - Resin-based composite, 2 surfaces, posterior on Tooth # 3 on Tooth Surface MO - performed by Melinda Pierre - Pre-Exist Root Canal on Tooth # 11 on Ro ot Region A - performed by Melinda Pierre - Pre-Exist Resin-Based Composite - Di rect on Tooth # 14 on Tooth Surface MOB - performed by Melinda PierreAssessment & P angelina Problems:Added: DENTAL CARIES EXTENDING INTO PULP (ICD-521.03) (RZB92-H33.63)Medications:LEVOTHYROXINIM URANLOSARTENMETOPROLOLNORVASCMedication Changes:Added: * NORVASC* METOPROLOL* LO SARTEN* IMURAN* LEVOTHYROXINAllergies:* PENICILLIN (Critical)* ASA (Critical)Ord ers:Oral Surgery Referral [[id number]] Clinical Visit Summary CompletedSmoking, Tobacco or Smoke Exposure StatusSmoke Status: former smokerClinical List Revie wProblem ReviewProblem List was reviewed and/or updated during this visit.Medicat ion Reconciliation & ReviewMedication List was reviewed and/or updated during this visit, including review of any dclv-sbl-yeadvtn medications, herbal the rapies, and/or supplements.Allergy ReviewAllergy List was reviewed and/or u pdated during this visit. Name Value Range Interpretation Code Description Data Maryan rce(s) Supporting Document(s ) ID Date Data Source [id number] 04/04/2018 10:00:00 AM EDT [facility] Service Date and Time: 04/04/2018 1331Te chnologist: Exam Requested: LUNG DIFFUSION W INTERPReason for Patient Visit: MILD INT ERMITTENT ASTHMA, UNCOMPLICATEDReason for Exam: Height: 65.00 Inches Weight: 189 .00 Lbs BSA: 1.93 Diagnosis: J45.20 DATE OF PROCEDURE: 04/04/2018 ORDER ED BY: VIKAS Amador DIAGNOSIS: Spirometry: Study of excellent technica l quality. Forced vital capacity normal. FEV1 in proportion. Obstructive index i s, therefore, normal. Flow Volume Loop: Expiratory limb of the flow volume loop is normal. Lung Volumes: Total lung capacity normal. Residual volume is in proportion. Diffusing Capacity: Diffusing capacity normal. Hemoglobin: No hemo globin available for correction. Airway Mechanics: Airways resistance and condu ctance are normal. IMPRESSION: Normal study. DD: EMEKA 018 1548DT: DUANEK1 04/05/2018 1631DS: EMEKA 04/09/2018 1336<Electronically signed by Andi Manuel> 04/09/2018 1336 Name Value Range Interpretation Code Description Data Maryan rce(s) Supporting Document(s ) ID Date Data Source [id number] 04/04/2018 11:24:00 AM EDT [facility] FEW WBCS MANY GRAM POSITIVE COCCI IN PAIRS, CHAINS AND CLUSTERS MANY GRAM POSITIVE RODS MANY GRAM NEGATIVE RODS POSITIVE This Gastrointestinal PCR Panel detects the following bacteria, parasites and viruses: Campylobacter (jejuni, coli and upsaliensis), Clostridium difficile (toxin A/B), Plesiomonas shigelloides, Salmonel la, Yersinia enterocolitica, Vibrio (parahaemolyticus, vulnificus and choler ae), Vibrio clolerae, Enteroaggregative E. coli (EAEC), Enteropathogenis E. coli (E PEC), Enterotoxigenic E. coli (ETEC) it/st, Shiga-like producing E. coli (STEC) stx1 /stc2, E.coli O157, Shigella/Enteroinvasive E. coli (EIEC), Cryptosporidium, Cyclosp ora cayetanensis, Entamoeba histolytica, Giardia lamblia, Adenovirus F 40/41, Ast rovirus, Norovirus GI/GII, Rotavirus A and Sapovirus (I, II, IV, V). POSITIVE by MULTIPLEXED NUCLEIC ACID PCR ORGANISM 1: CLOSTRIDIUM DIFFICILE A/B FORMED stool.Performing testing on forme d stool from patients whodo not have CDI symptoms detects asymptomatic colonizedp atients (up to 30% of hospitalized patients arecolonized with C. difficile). Patient s with falsepositive results may be given unnecessary treatment,placed on contact isolation, and be at increased risk of vancomycin resista nt enterococci. ORGANISM 2: ENTEROPATHOGENIC E.COLI FOR MED stool.Enteropathogenic E.coli (EPEC) infections can range from asymptomatic to acute non bloodydiarrhea with vomiting and fever. EPEC outbreaks appear to peak in summer and early fall. ORGANISM 1: CLOSTRIDIUM DIFFICILE A/BORGANISM 2: ENTEROPATHOGENIC E.COLI Name Value Range Interpretation Code Description Data [facility] Supporting Document(s ) ID Date Data Source [id number] 04/04/2018 11:24:00 AM [facility] FEW WBCS MANY GRAM POSITIVE COCCI IN PAIRS, CHAINS AND CLUSTERS MANY GRAM POSITIVE RODS MANY GRAM NEGATIVE RODS POSITIVE This Gastrointestinal PCR Panel detects the following bacteria, parasites and viruses: Campylobacter (jejuni, coli and upsaliensis), Clostridium difficile (toxin A/B), Plesiomonas shigelloides, Salmonel la, Yersinia enterocolitica, Vibrio (parahaemolyticus, vulnificus and choler ae), Vibrio clolerae, Enteroaggregative E. coli (EAEC), Enteropathogenis E. coli (E PEC), Enterotoxigenic E. coli (ETEC) it/st, Shiga-like producing E. coli (STEC) stx1 /stc2, E.coli O157, Shigella/Enteroinvasive E. coli (EIEC), Cryptosporidium, Cyclosp ora cayetanensis, Entamoeba histolytica, Giardia lamblia, Adenovirus F 40/41, Ast rovirus, Norovirus GI/GII, Rotavirus A and Sapovirus (I, II, IV, V). POSITIVE by MULTIPLEXED NUCLEIC ACID PCR ORGANISM 1: CLOSTRIDIUM DIFFICILE A/B FORMED stool.Performing testing on forme d stool from patients whodo not have CDI symptoms detects asymptomatic colonizedp atients (up to 30% of hospitalized patients arecolonized with C. difficile). Patient s with falsepositive results may be given unnecessary treatment,placed on contact isolation, and be at increased risk of vancomycin resista nt enterococci. ORGANISM 2: ENTEROPATHOGENIC E.COLI FOR [facility] stool.Enteropathogenic E.coli (EPEC) infections can range from asymptomatic to acute non bloodydiarrhea with vomiting and fever. EPEC outbreaks appear to peak in summer and early fall. ORGANISM 1: CLOSTRIDIUM DIFFICILE A/BORGANISM 2: ENTEROPATHOGENIC E.COLI Name Value Range Interpretation Code Description Data [facility] rce(s) Supporting Document(s ) ID Date Data Source [id number] 04/04/2018 11:24:00 AM [facility] FEW WBCS MANY GRAM POSITIVE COCCI IN PAIRS, CHAINS AND CLUSTERS MANY GRAM POSITIVE RODS MANY GRAM NEGATIVE RODS POSITIVE This Gastrointestinal PCR Panel detects the following bacteria, parasites and viruses: Campylobacter (jejuni, coli and upsaliensis), Clostridium difficile (toxin A/B), Plesiomonas shigelloides, Salmonel la, Yersinia enterocolitica, Vibrio (parahaemolyticus, vulnificus and choler ae), Vibrio clolerae, Enteroaggregative E. coli (EAEC), Enteropathogenis E. coli (E PEC), Enterotoxigenic E. coli (ETEC) it/st, Shiga-like producing E. coli (STEC) stx1 /stc2, E.coli O157, Shigella/Enteroinvasive E. coli (EIEC), Cryptosporidium, Cyclosp ora cayetanensis, Entamoeba histolytica, Giardia lamblia, Adenovirus F 40/41, Ast rovirus, Norovirus GI/GII, Rotavirus A and Sapovirus (I, II, IV, V). POSITIVE by MULTIPLEXED NUCLEIC ACID PCR ORGANISM 1: CLOSTRIDIUM DIFFICILE A/B FORMED stool.Performing testing on forme d stool from patients whodo not have CDI symptoms detects asymptomatic colonizedp atients (up to 30% of hospitalized patients arecolonized with C. difficile). Patient s with falsepositive results may be given unnecessary treatment,placed on contact isolation, and be at increased risk of vancomycin resista nt enterococci. ORGANISM 2: ENTEROPATHOGENIC E.COLI FOR MED stool.Enteropathogenic E.coli (EPEC) infections can range from asymptomatic to acute non bloodydiarrhea with vomiting and fever. EPEC outbreaks appear to peak in summer and early fall. ORGANISM 1: CLOSTRIDIUM DIFFICILE A/BORGANISM 2: ENTEROPATHOGENIC E.COLI Name Value Range Interpretation Code Description Data Maryan rce(s) Supporting Document(s ) ID Date Data Source [id number] 03/25/2018 09:35:00 AM EDT [facility] Service Date and Time: 03/25/2018 0935Te chnologist: Ada Requested: CHEST 2 VIEWReason for Patient Visit: E03.9 I1 0 E78.5Reason for Exam: COUGHCHEST PA AND LATERAL: 03/25/2018. COMPARISON: CT angiogram chest 08/01/2017, portable chest 12/23/2013. CLINICAL HISTORY: Cough for over a month. FINDINGS: Lungs are well inflated. Mild chronic interstitia l changes as noted on previous CT and chest x-ray, but no pleural effusion, lateral pleural thickening apical scarring or pneumothorax. There is no cardiomegaly, vascular redistribution or edema. The aorta is mildly tortuous without aneurys m. Airway is intact. There is a S-shaped thoracolumbar scoliosis gently dextrocon vex mid thoracic spine with levorotatory curve thoracolumbar junction. No mitchell mine deformity, destructive lesion. No free air. IMPRESSION: 1. Swelling int erstitial fibrosis heaviest in the bases without superimposed acute infiltrate, pleural effusion, atelectasis or mass. 2. No cardiomegaly, edema or other acute f inding. 3. Mildly tortuous aorta normal for age and S-shaped thoracolumbar scoli osis. Electronically Signed by Emiliano Smith MD 03/26/2018 01:18 P DD: [facility] 03/25/2018 1512DT: SUSANNE 03/26/2018 0525DS: [facility] 03/26 1318 Name Value Range Interpretation Code Description Data Maryan rce(s) Supporting Document(s ) ID Date Data Source [id number] 03/25/2018 06:31:00 PM EDT [facility] Name Value Range Interpretation Description Data Sup porting Code Source(s) Document(s ) GLUCOSE, 135 70-100 [facility] FASTING MG/DL [facility] BLOOD UREA 12 MG/DL 7-18 [facility] NITROGEN [facility] CREATININE FOR 0.70 0.55-1.[address] [facility] GFR MG/DL 0 [facility] GLOMERULAR > 60.0 >45 [facility] FILTRATION Medical RATE Center Units are mL/min/1.73 m2 Chronic Kidn ey Disease Staging per NKF: Stage I & II GFR >=60 Normal to Mildly Decrease d Stage III GFR 30-59 Moderately Decreased Stage IV GFR 15-29 Severely Decreased Stage V GFR <15 Very Little GFR Left ESRD GFR <15 on [employer] SODIUM LEVEL 144 MEQ/L 136-145 [facility] POTASSIUM SERUM 3.7 MEQ/L 3.5-5.1 [facility] CHLORIDE LEVEL 105 MEQ/L 98-107 [facility] CARBON DIOXIDE LEVEL 30 MEQ/L 21-32 [facility] ANION GAP 9 MEQ/L 8-16 N [facility] nter CALCIUM LEVEL 9.2 MG/DL 8.8-10.2 [facility] AST/SGOT 61 U/L 7-37 H [facility] nter ALT/SGPT 56 U/L 12-78 N [facility] nter ALKALINE PHOSPHATASE 75 U/L 45-117 [facility] BILIRUBIN,TOTAL 0.7 MG/DL 0.2-1.0 [facility] TOTAL PROTEIN 7.3 GM/DL 6.4-8.2 [facility] ALBUMIN 3.5 GM/DL 3.2-5.2 [facility] nter ALBUMIN/GLOBULIN RATIO 0.92 1.00-1.93 [facility] ID Date Data Source [id number] 03/25/2018 06:31:00 PM EDT [facility] Name Value Range Interpretation Description Data Sup porting Code Source(s) Document(s ) THYROID 2.050 0.358-3. N [facility] STIMULATING uIU/ML 740 [facility] FREE T4 1.10 0.76-1.[address] [facility] NG/DL 6 [facility] Center ID Date Data Source FREE T4 & TSH PANEL 03/25/2018 12:00:00 AM EDT eCW1 ([facility]) Name Value Range Interpretation Code Description Data Maryan rce(s) Supporting Document(s ) 2.050 0.358-3.74 THYROID eCW1 0 STIMULATING ([facility] 1.10 0.76-1.46 FREE T4 eCW1 ([facility]) ID Date Data Source COMPREHENSIVE METABOLIC PROFILE 03/25/2018 12:00:00 AM EDT e CW1 ([facility]) Name Value Range Interpretation Code Description Data Supporting Source(s) Document(s ) 135 70-100 GLUCOSE, FASTING eCW1 ([facility]) 12 7-18 BLOOD UREA eCW1 NITROGEN ([facility]) > 60.0 >45 GLOMERULAR eCW1 FILTRATION RATE ([facility]) 144 136-145 SODIUM LEVEL eCW1 ([facility]) 0.70 0.55-1.30 CREATININE FOR eCW1 GFR ([facility]) 3.7 3.5-5.1 POTASSIUM SERUM eCW1 ([facility]) 61 7-37 AST/SGOT eCW1 ([facility]) 105 98-107 CHLORIDE LEVEL eCW1 ([facility]) 9.2 8.8-10.2 CALCIUM LEVEL eCW1 ([facility]) 30 21-32 CARBON DIOXIDE eCW1 LEVEL ([facility]) 56 12-78 ALT/SGPT eCW1 ([facility]) 3.5 3.2-5.2 ALBUMIN eCW1 ([facility]) 75 [id number] ALKALINE eCW1 PHOSPHATASE ([facility]) 7.3 6.4-8.2 TOTAL PROTEIN eCW1 ([facility]) 0.7 0.2-1.0 BILIRUBIN,TOTAL eCW1 ([facility]) 0.92 1.00-1.93 ALBUMIN/GLOBULIN eCW1 RATIO ([facility]) ID Date Data Source [id number] 02/16/2018 09:25:[address] [facility] Hospital Name Value Range Interpretation Code Description Data Maryan rce(s) Supporting Document(s ) Progress Note [facility] JVBERi 0xLjQNCMethodist [facility] i48/TDQox [address] JqDQogIDw8 DQogI KLhG9M7bPh vcigp N9EmtBemHX kvU3V iamVjdCgpL 1Byb2 X7U2ZoHAji S2V5d 31iPGUlEE5 DcmVh dGlvbkRhdG UoMDY vMTUvMTggM Dk6Mj R5HIHsL80w ZERhd AOlRA2VhkF hdG9y KEVwaWMgU3 lzdGV yvqOLh1Lpq 3JhdG lvbikNCiAg Pj4NC dRiUS5hyw2 KNCAw CJ4ouv7FYD A8PC9 EhOz9UPKnD 0ZsYX IhVQVmm6Gl IC9MZ U8ccFclEmH yMD4+ ZSjgUAH5nm VhbQ0 DoOmSYE4j7 koSfV 9p/5DQB2jL rAjY7 e/oaiWSkEz uJCQT yGRHmpcGN+ CJ7Wb 0QY7o75s3h WMTyE bzgBuuLoPd Nj51q xhEys3KhOg 9BK3r WBq+KE773l hq8gW GF0pE5tl++ Q/YnP hTnqzZ+HLg ZHNC/ NeofStn26a OxtC7 1IDg/vEMUc zBtU0 15ILEoq7WI 5pMAz dp0R3gig4x uMl/Q A2qYBFr+4f bB/gD CAj3OpM+f/ wI4x8 xNZRGOv3OI dQ129 Q3KO/pnEG7 19d12 9hcX2/52sS pPQR8 1rbpllWbbh zw2l3 UcUbdjsy6d ocr0G GF//9VBq2l YWS44 hd2YedK2Ix 7R0cB A7gDSoLd2D 0GvGf kIJCld/XKu 11D1x pvSSkFumOW WZYFL K1iheC0xkN lIpim qLTs72MPnp si4tD Pv4SE9fA5j BFrOR 0XIBSZA4ya kCnD1 hrnkVT3m7K CiqtX ZH2nIOqJXE Zpu25 NxsXdWatkF FevyD X3gcMNRRAV TEsis LsLsrPjz1D Bfd9P WNqeoggyCg Qbdxg 2PMEtDWLoL zMwdU cFmNIzT/3x 4GF89 sGV2SkGAKr rr8nY 3VXgxY9bmN /wuF2 RLa6/8ZNun bi6fe K6UwY16OWH WMvtZ 5nugUFHJ0r 6iaE7 Eh1uvyAnX8 jeq9v WbN0R3L7C9 iCD63 jGkwirJI+V F21EK PRi4AeGs5O cKKnZ Ur4HMiihvc 2i6S6 AcWpocH+rv FZXBN 0LXCrc2TPl IjfFV mVFEsN1krx 8KTYF ERCPmL4SUE b87WP Y5kdwfLHt4 B/4OU 30Ihg1MgMD nowT9 qOfXkp3OYn F20Rl qcOULWmSRd hetsp VXeOa3JYWL iJdHh YsxzTmIZ+v gWZQ7 f/KlGtq6Lu ivcI5 QmUHd+p7+o Nc6jK AU5uwiQqLI 56xFC ZreNvnwqKj ysdSK jxXmtLPswV PTqHl C22At6jAK4 kwRVd IBBoo9WGJp rZ5si jDhaJuE7ja Zbwte a/EM/6/+th id7FL rUt0+3UEwn i9bJ1 ry8ZBNaT9h 3Ua4L 2u+b3TJZpQ dIldl 996bjpNCCh dVild 2kd8s51D9v XkZAV jNI34WpgPp K6rbZ rs5UD6xAnd hS/yq 4F2ahWsg13 T43qW 4rOHkXTdm4 8r0yw LTpApKHqut YXhzY 1ima6LX4Ay rosH1 J0mjap0l+v pXdPB PtezxDcSvB OrZ3d 2Gt56zSmKR rvyVO bhrBr7uMcY sS8iL p/8YNMseGG nh3Yy nWV4KrX9/V ZBskT XuwWphbAjj V4Lm1 YEYcvCf/iY f9M/R BNPWZANozm 9fX1x 0yOd8ijKZl U3fDQ e/23PdLeKy XIds+ GjIAXaLim2 Ybg1A HkGtJc852N geU6D ulaa8IuAm/ pZWxP 4EFAF7wW+X eILjf IcmZXjBYNl mZkYh SnyDWKna0x jLmIy ZqtquAswwo N/5Gk QXU5yKsfCD sE3nj xJzKVh0WN6 wr4sy kbg9pXKnpW j5WkL 2sa0+CsjbU JkbaD sQ78CTTLB+ QzCfJ mnwNKMTsIg XaAlE Z5OlID2YRr nHDhy gJgntDyBwh LPFUI O/WEfaOzjL owZmk LW2oCpTTtE hnIah otTKcqQU66 MU14Z ijatgmwBNM 94EEV 1bK8ojzQYn GjHvB OCX6ZH6GJ6 Bp/j0 BHM3nrnwkV 0shEr HQVmOoasqj SDlEe GtSyCQ2JBn 1nCMP BKk+9D+jNn 2GN1g E60ymeNFZs QbfNF zY7RCw8awJ RPEjx ZTEDub3orW sg2Lp gswATp4VZ9 EuUYf LxM2y7SOGa CvCO6 TOWGS7LiGJ RexPx gKifERYKhi 8OlMK +H7pj53lIW DxI2H nfy2E07YVr PhD0P nwaPt/3x3c 3d1fU 5PAy+Xg+e4 O4SRt 3U85Gw6CP2 2y7Tj mOasi+pUnv GE6BJ tuewJT7buf bRuvo 0QzbnOevAc sEzzC 3KJu9vwbeE C4w1h iuOi3DjWtj Cxz/Q hEzbGc4vHj ZqjP4 ObaDh9PEHq FkxW4 RRkayClEEe J1jwk lnQO2l70aR CdB0t S9PkZvhjyx 5jJoI Qn1sQIToQd yZBKO SzeEF2fPhM 31WIz LQgowOYkZI bBSro EkvWUkyDCf VF9XJ 6utbBDynHL m8jD6 tWV3mnJejr OpYsR 7ePo/PHm7v R58HN YNy/gcF/+7 fXw/7 4+q0mLD44D ZPlY7 TgqxRijrEQ 8xdRK YlI2WDL7aX 9qeJB sIgSOWeidk Rcqg9 +byHAwP9gl GT0pA bO7napRSd/ NBqMR ugE5SkSvW3 tyiV1 QQsj14zWrv RqOZI 6PpN00UFiw BIhj+ fYhMS+UPZN hyJYZ yxCceepqEt THmcJ I7QgmOaWWS zbbtv CkV8tdeWyT 5QSAG IBIQIgXejv 6XEw7 1y87uTfXZF ul15s Pmnctp9gle TFooA WNCsxzSJSs Y0unG 9rw4fiKbR5 eYIpK I6ZRXfbh5N asumC ebyoY4ichA 9CocM Q+CQTp/59k tB1of FKDHNcKdFm 9zWwK Y+BUZiE3iY yk9TP LrG8dBI777 uqMsX ZCBx7st44X 3bj6Z JNRYdTVONL LOIxX 2FfWFxBgZm 6Vjzu FKEVxDlrpm 1H1s7 qllz40EEtR aHTZ7 EPJFe9DTw5 KJxdE 8okk02lEN9 4slI9 kXTBp4K3Ur zxsbe YSXletWp2N 8kSsR 8EQgS0d2fb gZVAk zPjuqveBsu Qda1/ Mz7sAl+j8V asmG3 x6Eshk9lgQ dO1d+ WM52abpzZC e5c+x xX6ZZjRn4X DNkQR R2tS+OaQEg 4rNCW DC6wTE0YW1 bei0H tGyelK1FJk SbYDc Ui2Nxc3lay Zrsu1 tkQrFpCjmP RGV/f tzhUXsVRBM FyxYL CV5/mNymZu YfgTQ +vgr5Gi3ib x3KLf Fm2QN8vk37 f43RG IPw8vPu0Fb ZdE7d k73LDFKi+R eIQav 4/GO5cVvnu diCo1 4qBDRmmB6+ +UaHw JwbYVanyJ4 U+DHI KKX1yzq1fY xSR/E OzieKP1nns AJD0e msDea98AAG /eK/2 6Mzyk5yJXD I9U+i VR+6V/d0il 9FckH qH07+PwzSG V0l8H qbQtRcmd0D YYFep bffU5Odx/q NtR/v n7jBE5W1cj 9/yDV 5A4PwKOYI7 C5Ic8 st7wRt1xeq qd4gM COx4TIp1eE O6vlf kwOPhuO5Dh quryW D4dw93IuS4 96xgR YnFzV3V7et lvOOr zhSpHVeAUO Wpz+b Wa7Q3hCErX zqucn 53LSemLYDZ jYi1E QA85a/77HZ Vp2Nb +esi0CQPGB VqOda kweDJtt9o6 O6Syo 6pIPMKOah+ Hbw6p 7KjqQFTYUZ kukTN lO1bdZ2WFj u7DOW k6nJkIPIMD q2srK EQu8EXCLw1 Ky7+N Dy9SynRC/+ 7JlXf 7ymROB7D1h /xTSH zr6N3Qu0UX 9vrfP sMpthyO8nZ wt9vb Y1GGHTYaFx jC5u7 vSzSII3hbx Michele/S UrLEJuV7kk aQ0kY uyUDkG6cr0 EbilC YjiOXSORW6 +QfGl 825etj/8DL Hzv7G OxAJL8nsKv bQ0KZ Y5bf6VhBXs 1IDAg d8AsUWyzVR w8DQo jYNCsO0N4v GUvUG YmLS7PETPl IC9QY XJlbnQgMyA wIFIN CiAgICAvUm Vzb3V yN3XkJMMuJ CBSDQ doPVQvI75q ZGlhQ w68UDzcLKZ gNjEy YWw6Es8ZTv AgICA rI62ijMUjo HMgNC AwIFINCiAg Pj4NC eBnII6grd9 KNiAw DE9eoj9ACP A8PC9 WkEz8YWCqJ 0ZsYX WmUTVvy1Mi IC9MZ T9roNuiScL 0ND4+ BUiuQSA3md VhbQ0 HqGbJbQ9b1 zgSx9 5IdK8hiQOA 7V2qi VEk121fjhp ZuyRI E3cXB/SFkW mbu5L tQjUM7c6/I 5pU7N bBoQ/WxEVt x4Q1X 82HnOGQkgG 2j88Q QtvS9jZus/ GPILQ QrFec38N7/ PUvMH 7xs/1ymOIj gzfjF 95xzR7W2uc OdT6D 402F4Jk1xZ EqlpC nMbwpWAKz+ av3oi 3BJUlac9dh 1xO47 r/ZWR6tRtW Tq5t7 +EpIUm7Hqe 16/Rp gl6MtDN5l2 jyWRh epXEuY6agz hGntM 5ZGo30+sW2 ePREC iQm20VPs1d SjY9t u7mUHlVHpl XUdlb Yw1rrzkCms 18GtN qXYhx5xyfc RzjWc 60ZVlXgza+ Xvuju Jd9mlFLMxA D7lIc cNwv4PQvox YI8ud HNX10f1SO8 Z7/g0 z/UZ9bojNu VezuG 85syVE2UaR hWSZD x+UoBX0tS9 7pnP4 33zOMQhCSI c7v9I T/trCiZpEQ 1armS tl5V+VA0FD yeCRU MTbdVuP0DC QFiCL 2tOCXzLWf0 dDmF0 2SpDgcOJiP Igo8D pfixIA26i2 wQcOC qIUjQJUW3C UvCrr vpaEtDwUvI ioAhW k9p2EoKhHH iGBY8 Tvo+DNF55O VEYFB PNrQzBq2cy gvWSA oyLZq2mQJ6 ChW5K CiBOTBQHKQ UQbx7 ViKGOhb0DL YQXSe 5cEBmDT3YD +E3Nz KmDb4LLWLJ E6efV mIDLE8kYpW k9Dmh cEbKWutJ5J hhZSY ODpW+mze9b h3ghL Df9k0jll/l nNPn8 B7PguqTI1G w5BdP tncH1aZKzF 05g31 vQaANnZdm3 +OlO4 8OwLF7MaW4 /012n SwrTJc8DUV wzlg2 q4t7nEzIWb 1Gigt okSXKN8Bvp RNOLI SgsFhQeKTJ b+NzK 5vK7kYPCsO 8XkVB kCm8cs/Yby CKSOB Lqtjkx8110 XulyM /Yy7KKcIar CQMEb ZwMFnEuRUI gzW+X r2UfXjVJJu qDKzV 7CkIgwKZGA yLgtc Q35vzbibQF FkIwG T7ibKXCkyz vcFjT jyhXO5JIlI gDO9g CAJhglPLIF zNljB 5OQ1QtKEgA RWXvz LMiH/BwQzY y3TOI 400qTX5LHf oKIYj nwyTwfqhVa JlnMP ZWOgG8azCJ GEa9G 88gjxJFCyK MoYs+ OPI14THTYR caIN2 +ZQZPQWh8k nghhO cdkggOK6Uc NWx58 Sx1TNmdTXQ 2nJ7+ LoPcmcD2e7 FzVsj RRFC8BjchN 9EYPC bSfB0iNUss 7n55Q 2kxs7I4GQe /w/7+ 94DiCOE/xi DzBL0 hYPNfwcHy+ z3k1S 7FmvatIQ6t cz/sR 97lhMLiJZ+ Gu/55 rIXGgE+M8+ Jacobo+m Pm0x/qf/Fz Dnyuh aYHxnyvCy7 gXjRL iuVOdEXqgg tqMBJ D3+XDPUHs9 0KSlG zFp0m7AMme rk9XL MYpw2xcb/y PrWpE telUB1+UWU GtylZ 4uV5oT82o/ XDcz6 RUK3j57ehF xf1s2 XX9zKFzcex g3P++ hTDuew++vL h/yIH PtRDG/acuS Bj3s9 BltLwgHg46 zh0K9 87+k7OI3V8 EDsiH mduUT2QhUN ZD4AK y4AFAm3p52 2k1OC /qeM3IKKwp qRaqh Pet+JPIHU4 KC0JG UY3v2A+HHS Z8jUI HLWvz1q5nt ZD3KV aqvIQkmNYB DsSTd bBEH8xNHwd yuxQw 75TVbQgiF7 muWfM 6IroLcbyEn xjOio mujypwKNob P6q+1 D4Rp1lFPMr IW7kU Nz799bVcbp hWAh0 DsheL5I/S6 EaSBS ovgxLJNxLo kCSRr S1JSeVucjT SW6+B kgelBEciy4 v9uzN O1ZmG86UGu FKCu0 ZhJQSqtl5B /g+7/ oryGigm4FW wGdXM WlFKTOxnJI l9lDG MKzXE3a3JK S9sOX irDFZjNFC8 BLqRQ gaZt3fwC6k +dn5B twJAS7paoH sP7UV Sn9q8P7JYs ENbid 8JUNAwr8l/ +HsCz vhAICIjMHS E7aVt TAKOMQ9jSn 5RB/s nCBfzRv5Hc T4ZkC t4KyjN352Q cLlWZ iUrMipOTEY IxUmg pBLjhhe57c u+I4P hRBDPpbyML ZDr4w K8v3aNxBiG fvNQD haMo09C5zg WXLQS cfcQvy6m/V I2c5z +HN47h7uia W47kX U22nmuA1l6 6uCG4 rBful3F5Qn vb0vx oA+fbSLcVN zpiHS 7ioxHrNhfN //0al uDbe18MnpQ sc84K kpyirTgrVs fkABB K9rZqVOvwi gn4eC HYAnY4jjdy arlWc ZznuySGAbH qcVx9 RK4NFWcRVv SGijO PkKpp/05hG 3yjvL NGpBr9d9ww B6HhZ 0zXvdfp+2Q nOU75 jc0ai6y11p xa3wl EkFyPz3JQa 5ViWl jpTqjcYToB Zz1Rq i15fDTvqSz HCZGd W/harOWbaX Wai5r Jd7Cdb/uO5 z78zB MPr1+CzjXh dlq02 x0h1cvzIec QME3i oTPlk46XA0 vfIdv 17fLPcBmhc FPNWX Zy6LJMzlvk XLTGV tjBL0uwlhd z3b7A QnCpHC/7DT t5MUj dOZpEDrjC1 GrajN MA2hvceP/n mMCW+ NBLI5l1TVW CweoF D8jR8663ki sbOMw pt3shmS4hu 02EsJ 5XFAOUmeeh rA33s r7sj14ZAFw SsLnX uGbWv+hmiW IR90b iFLYIFYczU sdIOF 2pN0uD2lh7 nChlq KVxsgugAc8 0jD+h 1Kxn0sn/w1 GrOHw TL/gifqlhO HMa5y WvuVb9U4e3 mHnaB /76k9N6E8V LWVuZ RF0mqKnnB3 KZW5k z8KqBOn5JN Agb2J aDNdzLNu1I QogIC PvH7Z7yUVj UGFnZ R6VZPFbLC0 QYXJl bnQgMyAwIF INCiA gICAvUmVzb 3VyY2 VzIDIgMCBS DQogI WYcI93xDXp hQm94 IFswIDAgNj EyIDc 1Th1VOuVxE CAvQ2 9udGVudHMg NiAwI FINCiAgPj4 NCmVu FU4thf2VSB AwIG9 sbs4PKFP7F C9GaW c4YDEnN3Ig YXRlR BKvz6WiEG8 MZW5n jKazKEI5WG 4+DQo xZCS1ofSkh Q0KeJ eITDwi7eXZ vnem/ +GN3GBT7WS Jiptv SgzfZgv6ml YnX2A SEmGDAAOAk qVf3w gDx3Z6axdL oUccE xE8ygmpDoc ObxBN 8jTCA/zf4W YS+QP ykuwvqxZ+/ gkOL3 2lF4uEZxww H144X p98F3w71m2 3c7j4 LQKC6/MFol hCkU3 hvIxTmNdvP lJdcb aVsycI932M X/0W3 zZQsSh3c30 +wi+Q 1WBNAV857q 3MH2A 2hy+nOF8LY xxl0/ gW2oUjSVzM P46z5 EA/SEc6cK7 aArUY m/P5FHX0eA 97ksT RyUnvDDWO8 8EGtF byOtqmL2hS 3G9gV dfX5dxcX1b FoOdz gV0FOFHkP8 FayC7 o2DLU0gMiz UwiuL wOa59MjZd0 rB7Fn Qoao6hi52q x0hsu p5Yx7leYZ8 iqe1p GeyB2XHCKP qUtLj sBa5OLEyO1 UlmoN ZePQEWlGiU m8Ilp BGqJ5UTjsz 4AHx5 TEhZcsEkA/ rIycf xhDBmVeExQ yQfqY voRKc59VTI uqAEK St00jeKxKd OKWo4 eAggdWPw5s oDLSv V9pkxsuNYI qLUzh t0yh4M4p0/ fvTF3 by+BtkLVvO OSnQH tJqmc2Lb8U 0C15T CaHT1cKhfD b8QZL USerJ2aPJh BVso2 I56tZOeoZG WWyvN qB4nEPXDy5 OZ0y2 vcbVkl+NY/ 2DKLP Xmp0IXgPF1 mWyVC MEjisnQMdl Q6RAM MoLKGFapSC S6hWd AATkWmKQnn VHvqI QedH8j20uU CP6Va Z5slNBXIqz wIVZR e3WT7WGgP0 i4v32 2WXb0BD4tF 4thB+ eFudub7Hda QcQnX bIkBZxUi+i dTPCO aV2GdnXvxm Zw7IL GFR9QUyNm7 2Ivpu KYuSQfFMyX EZ6kP GCOiylVo2y XVYSF K58ijC0lJs kus7L A+D7oI15r5 XDCTt awicg3Vjoj 8GPzI IFaxBhv3uU 2lJPE V+VXvLEgZV 8Zap7 MbZbjDhGWN Hi9jx BP/st8d50R kZX7E sIVTb7fOnl pulEY bIkcUvpAIJ ZCUYD o5gBKuEzun i/ITn DUi4AwuP/f tI5c/ jT6DAZXJRM qaZlS xkLIoj+RDq CSf+h PyU8WGH5+3 bS+xF cDrsOGtLH0 hc816 PyJMyG0pTs UFzSf WYhHxQyBKI 1/Z3J rLeC4e0cb+ 96yhK 644PBHoSB1 0PKFH mssc0BPFqW bfHwP jSGyAeC54H UkT0O j+/7Vx+5rT rp0sd 0XlhlP2ZIv K09jn +s/0X0wsLg x8bd2 OHF1JQcGE2 wFRXq sRXO4pxRLM +XLsp tkYZ/kwe6L tK8IY ykAKddWM5e mwwYE WSBJluxvxi nbygh aslejs2XAB Q25Aa f5vvI6JQoe YNkqe QSdotZtiWN 6yYcB Di66FoMTMf Div2Y mH6eLo7vN/ JF2Na BrBZ5axMTX MnX0P OI72QbqTNh DSGoO W1i7rAXcPc SsvHw u3hXxEzPzD simx5 z+1aXbYP52 0HkmZ qiy7gQJWE9 dE1FS EwIcJfUib1 aMTHq Uienasx5UD 8WEM6 oacaKUTv+3 GhS0m RyV4eSjSHM D8xZ7 YixGwax/Eq 9nSbY BuNrZpQwzX o6gYc i2zZxY6hOm PDXbL yjMvZVyb32 p3otX HgQPUHDtrZ kLMy+ StJEULO4OX h9hTw ++5NeEaxSL KT0Ba YrnoYNuk6S axKJM TFJPnspEKW I1lH4 L3uXBVg7nt Jogq0 cW1u9Y9xk0 UK3jr 3eT/ZKEQ6I ukPLZ /4fszv3uuF axaB5 FpHJU+o//N 0SkMe z2hM54q0y0 uf6xY 7DDO2RB5Bx d2IFu I4+uy042N4 +Xka1 +rVz7DxrMy fmVuZ ZC2uhFkyH2 KZW5k p3YjPZu6JK Agb2J xDSxyIWk7R QogIC SqU3D3eOWy UGFnZ D5ICQDfKZ0 QYXJl bnQgMyAwIF INCiA gICAvUmVzb 3VyY2 VzIDIgMCBS DQogI KHiW48zZYs hQm94 IFswIDAgNj EyIDc 2Ms9CKsDpB CAvQ2 9udGVudHMg OCAwI FINCiAgPj4 NCmVu IU8idy6SDH AgMCB vYmoNCiAgW yA3NT AgNzUwIDI3 OCAyN klqDtR1PAN 1NiA1 TAOaYQn6UU Y2NyA xOTEgMzMzI DMzMy AzODkgNTg0 IDI3O CAzMzMgMjc 4IDI3 FIG3YBYwOD U2IDU 8WkD6YVGjV TU2ID W9KtM4NAZa NTU2I VC2FsU2EFH gMjc4 UVO2PBT0KD QgDQo pXIW9PZH3A DQgNT C5NQTaMRMa NjY3I EF8BvC4CoR gNzIy TGS2WpL2PZ EgNzc 4IDcyMiAyN zggNT IrYIO6MdZ5 NTYgO DMzIDcyMiA 3Nzgg KcM4GEe4PB A3MjI oXdD0ZEPkO SA3Mj XtUaR5PRy0 NCA2N jwrHmI0IRD xMSAN QuVaBon3SM I3OCA qNnniYZB2O DU1Ni AzMzMgNTU2 IDU1N rF5HNPvSHQ 2IDU1 NiAyNzggNT U2IDU 1NiAyMjIgM jIyID UwMCAyMjIg ODMzI EX5ZjB3UCE gNTU2 GAO2IzKhLa MgNTA gHTE2DVM4T TYgNT AwIDcyMiA1 MDAgD QogIDUwMCA 1MDAg CzH4CCA9WC AzMzQ pGDz3ZYb2O CA1NT YgNzUwIDIy MiA1N TYgMzMzIDE wMDAg TSL0ZWC8Cx AzMzM hLRJfKIO0X jcgMz MzIDEwMDAg NzUwI OBuKWI8JBB gNzUw IDIyMiAyMj IgMzM zIDMzMyAzN TAgNT V0ZE0XYKSh MDAwI DMzMyAxMDA wIDUw MCAzMzMgOT Q0IDc 5NBG8OBCcI jY3ID H3ZINpGyFi NTU2I FS2DmY7TCN gNTU2 FCN0FOK9CW YgMzM zIDczNyAzN zAgNT N4SLG9MGXk MzMgN lT1JVV7RrD 0MDAg BUC0KOFgFl AzMzM sHvEcGM6KC CA1Nz VjATP2LHKk MyAzM zMgMzMzIDM 2NSA1 PHLxAYD8FF gzNCA 4MzQgNjExI DY2Ny N5HpclWoC4 IDY2N tX2OyxhLcL 3IDEw MDAgNzIyID Y2NyA 0TtosJrM0S DY2Ny AyNzggMjc4 IDI3O CAyNzggNzI yIDcy VzU5QgkeLQ ogIDc 4IMY9OyqgI zc4ID u4SED0TKSu Nzc4I XjtAiM8VaM gNzIy ZEvuNeY0It cgNjY 0DSJvSEG6V TYgNT G6DWD0KwA8 NTYgN YZ8SOE0AtQ 4ODkg BKByJYN6Rp A1NTY bXGW2HGZ8O iAyNz cjVxj7WIZ4 OCAyN dafROL0EJ5 KICA1 CQSqSQA9TL U1NiA 7HTSxGGV7S DU1Ni Y4RKtrUmTt IDU1N qF7RBSrLGP 2IDU1 TrL1AUWfZA U2IDU jHUGtYR4FD W5kb2 JqDQoxMSAw IG9ia y1MXVJ3UF1 KICAg PI9DiRGuV8 ZvbnR EZXNjcmlwd G9yDQ rkCTYjL9Xq bnROY G7rC0PpmSN sDQog FSGaE7LbI4 VudCA 2OJGnR0StZ GVpZ2 d3MCgaCZ2P ZXNjZ V17BN1uONZ NCiAg ICAvRmxhZ3 MgMzI NCiAgICAvR m9udE ALb0drCwKw LTIxM hRnDRL4MJu wNV0N CiAgICAvSX RhbGl hFD8eqLThJ C9TdG VtViAwDQog ID4+D QplbmRvYmo NCjEy PHMuu1AbJA ogIDw 8DQogICAgL 1R5cG GfXc3bjQ2R dWJ0e WNzF2PsaHW UeXBl V1Tyt6JGg7 50L0F yvNMhP5VrV 29kaW 3jY3hvojWa c2lFb mNvZGluZw0 KICAg BA2ZdAIgiQ NoYXI gMzAvTGFzd ENoYX FvOxY1KWrg ICAgL 1dpZHRocyA xMCAw IFINCiAgIC AvRm9 puDJrp7Rbz XB0b3 IgMTEgMCBS DQogI D4+DQplbmR vYmoN CjEzIDAgb2 JqDQo gIFsgNzUwI Dc1MC AyNzggMzMz IDQ3N JR4PERcQIZ 2IDg4 PJR1AiFhEt M4IDM zMyAzMzMgM zg5ID R5TSWeTxru MzMzI DS0KJHcJvw gNTU2 TKC9OfB5XK YgNTU 6NFJ9KbI8E TYgNT B9HYS2ClE7 NTYgN JZ1NWMxTjE zMzMg FUv7GC4NKN A1ODQ iIVt4XNMaJ SA5Nz UgNzIyIDcy MiA3M jIgNzIyIDY 2NyA2 UAYhVpj1HX cyMiA lWhsoOBR6M DcyMi U1FXYvUQQm IDcyM fR2EigcEsW 3IDc3 UEE4HoPqSk Y3IDY gCQE6JtFsQ jY3ID h8AXN4Jvtq NjY3I DYxMSANCiA gMzMz WEC5GQTkWp MgNTg 8KXB1HvOmA zMgNT X2UUNoOTR8 NTYgN sFgXQI8CdI zMzMg NjExIDYxMS AyNzg eNgo3PWH3W iAyNz cyLUp4ZJQo MSA2M TEgNjExIDY xMSAz UIilYZX0QN MzMyA 5VIIbYBX3A Dc3OC Q0VQEmEZdb IDU1N dD4TWTzVgs 5IDI4 MCAzODkgNT g0IDc 9PXJ6DTXfZ zUwID W4LED4FEWp NTAwI DEwMDAgNTU 2IDU1 NiAzMzMgMT AwMCA 2NjcgMzMzI DEwMD AgNzUwIDYx MSA3N TAgNzUwIDI 3OCAy NzggNTAwID UwMCA mMNMqKYJ0S A0KIC AxMDAwIDMz MyAxM YBeVEN1WrS zMzMg UWM8WGs2KG A1MDA zNfC1ALJ8T CAzMz TbLUA8FTR2 NiA1N LAhJSW6TRW 4MCA1 NTYgMzMzID czNyA sWmSdTIN8Z DU4NC AzMzMgNzM3 IDU1M kT6POMbOQF 5IDMz MyAzMzMgMz MzIA0 RTDS2QjKnA TU2ID MzMyAzMzMg MzMzI WG5BVH5AMA gODM0 LDsmREJ3Ru QgNjE vRMlgJcW0Y jIgNz IyIDcyMiA3 MjIgN zIyIDEwMDA gNzIy OVA6HfX3Jr cgNjY 3EXU0HaQgK zggMj e3BAG2QLZq NzggN zIyIDcyMiA 3Nzgg REvoSSn4MP A3Nzg dEks7NOi5I CA1OD PnWtu3VPkr MiA3M jIgNzIyIDc yMiA2 RaczYvO1VQ YxMSA 3PQEfPPH6E DU1Ni A9AUPzVWP0 IDU1N xI4ZMitAXH 2IDU1 FwR0BXZmGQ U2IDU 1NiAyNzggM jc4ID T6LYYmDywh NjExI B5ELBI8OHU gNjEx AUXaGEP6XI EgNjE nCBXqISB9M DkgNj ExIDYxMSA2 MTEgN jExIDYxMSA 1NTYg RyIqASV7Sg BdIA0 KAK5fh5SlI QoxNC EkCZ1vix7I ICA8P I2AUTGbGA8 UeXBl E9DdamNBAB Njcml oqF5aMVgaW CAgL0 EmuiUVYM3g L0Fya WFsLEJvbGQ NCiAg ICAvQXNjZW 50IDk lDM6XLJAWS WlnaH EsCMU3Y2Lk c2Nlb nQgLTIxMg0 KICAg RX5HwCEswi AzMg0 EAYPeIA1Tp 250Qk JveCBbMCAt MjEyI DEwMDAgOTA 1XQ0K HUUuGC9DfQ FsaWN BbmdsZSAwL 1N0ZW 1WIDANCiAg Pj4NC iBfEB5wfh4 KMTUg MCBvYmoNCi AgPDw NCiAgICAvV HlwZS 4Jn711V8I0 YnR5c WAfFBM5DDZ 5cGUv QmFzZUZvbn QvQXJ yLImsPx9wY C9Fbm ItXVqnCf2I aW5Bb rXiQT9ir8R pbmcN CiAgICAvRm lyc3R DaGFyIDMwL 0xhc3 RDaGFyIDI1 NQ0KI LCgFW5HwAU 0aHMg MTMgMCBSDQ ogICA bP3DncaRPE XNjcm wbrG2oHDA3 IDAgU g0KICA+Pg0 KZW5k e5NtXTvgMl AwIG9 brr9GGGEwA DQ5Mi J2CMMrAeh8 IDMyN fM9USUeWJj yIDU3 RRO3RzbqHN UwIDI 5MyAzNjkgM zY5ID C5KVR5RGxo MjcxI DQwNCAyNzE gNDQz HAP1KJX4Ch UgNTc 2GRE1PUK5X zUgNT b6XKN1YRM3 NzUgN Hv6OPF3EUF yNzEg MjcxIDcwNy ANCiA xXmX9CTcnB yA0Mz viZHA4LRsl MyA2N NVxOaQ2WDv zNyA1 MzIgNTIwID cxMSA 3JjEsNiZ7W DQ0NS O9BFysQFXq IDk1N iE5KKQcRtR 4IDYx OZH5STugNb UzIDU 1UPJ4UQCfZ zIzID X7DoGaWLM9 IDY1N PE0LJrpEgE 3IA0K ICAzNjkgND M2IDM 6PLF8CZhhJ DE1ID WnQJB6Frdo NjIwI AH6WLT0REm gNTQx RXP9ZjQ8YW kgNjA eMSD6LMRsS DQgNT A2OTB1IKB8 MTYgN eF1EUBbLVE 2MjAg GuI9OKA8QI A0NDA yHdh6IRIeV SA1ND CeBwt9SSC1 MiANC kNwLXZ6AQB 3OSAz FwgjUuY0OV M2OSA 3MDcgMzEyI DU3NS O8LRYgWpwn IDU3N ZQ9NWNiFWV yIDQw YyS3QTKqPt gzIDE yNTYgNTYxI DM0NC O0NXZgVeT1 IDYwN eK7WEPaBwD 2IDI5 MCAyOTAgND kzIDQ 0PsM0AvGzE TAwIA 0KICAxMDAw IDM4M wZ6VmJyDNS wIDM0 HKY2ReGdZr Q2IDQ 6LVE6AOtbQ jc2ID ThTpA3SwLf NTc1I MX5AwC9XgJ gMzI2 CPF5GGR0Sq IgODc 8FVJqZSL1M DEgNz Q5GAWqHPH3 NzQgN OO8NCV2WQG 3MDcg UFM9UCMoCC AzMDM gDQogIDYxM yA1MD kgMjcxIDIx NSAzO JNbCFH1PFC 4MSA5 SOTfAXF7WW k3OSA 0MzggNzAzI DcwMy X9HEOjCuAg IDcwM zX2YXWgRNL 1IDYy PGQ9HyKrFK MyIDU oIkX0FwIrK zE3ID MxNyAzMTcg MzE3I QljFpI2GCW gNzU4 FI5GIOP8VC ggNzU 4TNe1EHM1U TggNz T0PWr6PTA4 MjMgN zIzIDcyMyA 3MjMg HoY1NMMqUW A2Mjg vOPL0SQTeO CA1Mz rlNJM1GIJh OCA1M wzhSEQ0QYG 4MCA1 NDEgNTQxID U0MSA 4YIEjPll0R DI4NC AyODQgMjg0 IDU5M yANCiAgNjA 1IDYx BTS0YCPqDr ExIDY nCPH2FYRkR zA3ID NjOJO8FOGi NjA1I VUcGEW8VDB gNTM4 GUGdSEO9Tb ggXSA WXfTpWZ8qu g0KMT cgMCBvYmoN CiAgP DwNCiAgICA vVHlw XX1Xg422GG VzY3J mxUZsrh0ZN CAgIC 6Hr913WaEj ZS9TZ WdvZVVJLEJ vbGQN CiAgICAvQX NjZW5 0IDEwNzkvQ 2FwSG XlO0u0UQKd NzkvR DCpH3AwtQR tMjUx DQogICAgL0 ZsYWd zIDMyDQogI CAgL0 RghhHPEt86 IFswI R6iNFMlTCA 1NiAx RSy3VG7DQC AgIC9 JdGFsaWNBb mdsZS ZzM8A1QK6H IDANC oFlKl5NJcI uZG9i yg8XYIbfAW BvYmo NCiAgPDwNC iAgIC WoDEzjSE2A b250L 4N2ZhD8jQX vVHJ1 MRX5pGWpYz FzZUZ xwtQeE4Ywi 2VVSS xNg8wfN7Ec Y29ka Y8oC4fjhcC uc2lF bmNvZGluZw 0KICA gPY6UbMCcm ENoYX IgMzAvTGFz dENoY QIrMzZ7DBh gICAg C3opEJZcoh AxNiA wIFINCiAgI CAvRm 4gyPNjt5Ls aXB0b 3IgMTcgMCB SDQog ID4+DQplbm RvYmo NCjIgMCBvY moNCi AgPDwNCiAg ICAvU UIjZ0KfjQC bL1BE Po6DBBu4D6 ltYWd dE77HWkEeT CAvRm 0doIG2IQCz RjAgM TIgMCBSDQo gICAg ICAvRjEgMT UgMCB SDQogICAgI CAvRj IgMTggMCBS Pj4NC iAgICAvWE9 iamVj oYI4DXF+Pg 0KICA +Ue5BEC6zp 2JqDQ tvHZDyj8Ie DQogI Vh1RWlfOYW gL1R5 cGUvUGFnZX MNCiA gICAvTWVka WFCb3 ggWzAgMCA2 MTIgN incOA9GADF gIC9L aWRzIFsgNS AwIFI gNyAwIFIgO SAwIF BhND1NFJOy IC9Db 3VudCAzDQo gID4+ DQplbmRvYm oNCjE 4UOAyu2FbJ QogID x9VQasMCOo L0Zpc mI3TIBaLIP gUg0K TZAfRO4VTW N0IDI xIBMpWh3HB CAgIC 4Nn1NemSSt DQogI D4+DQplbmR vYmoN CjIwIDAgb2 JqDQo pYNx5GNoaQ CAgL1 RpdGxlKFBy b2dyZ CUvAC9rdXM zIGJ5 IEVkdWFyZG 8gQm9 woUdcXO0Pq mVqb3 SdQB1IGQS0 IDYvM TQvMjAxOCA gMzoz MCBQTSkNCi AgICA vRGVzdCBbI DUgMC ROUU5BOHxl MCA2M TYgbnVsbCB dDQog TQYiF0Agwk VudCA xOSAwIFINC iAgPj 7XEhWsLU4m ag0KM jEgMCBvYmo NCiAg PDwvTGVuZ3 RoIDI dMC3FoYCfH 01ldG GkFSUoY0P7 YnR5c CTpQK8DDv3 NCiAg y3YvQESnFF o8P3h wYWNrZXQgY mVnaW 49Iu+7vyIg aWQ9I po0YGWNdJG laGlI qcCzY1lAWY N6a2M 5ZCI/Pgo8e Dp4bX BtZXRhIHht bG5zO rf0QrAss5L lOm5z Qg4ncWHqRs 4KPHJ kZjpSREYge G1sbn N3mwVfHWZi dHRwO k5gv8q8Asw zLm9y Mq7tUXf2Ck AyLzI mEWZoBj2dd W50YX hziqYiQb7P PC9yZ NB3IsTZJxs 8L3g6 eY0kdDY0JQ 4KPD9 3aWHqg4M8Q GVuZD 0idyI/Pgpl bmRzd HWrMK0IScD uZG9i ri1ZIyUsAA BvYmo VMhk4OAnoH C9UeX BiP0BcqYMu b2cNC sKsJ5IyU2J zIDMg MCBSDQogIC 9QYWd kLQ3fIJ6Dr 2VPdX HawB5ktx3R ICAvT 2I7xZdoBBA gMTkg MCBSDQogIC 9NZXR lSMT4VAGjQ SAwIF UHSmMbT73n ZW5BY 2Cnw24lEtQ 1IDAg UiAvWFlaIG 51bGw gbnVsbCBud WxsIF 0NCj4+DQpl bmRvY moNCnhyZWY NCjAg MjMNCjAwMD AwMDA rLESgVbC9E zYgZg 0KMDAwMDAw MDAxN yAwMDAwMCB uDQow MDAwMDEwOT AzIDA hIHWeIO6MH jAwMD AwMTEwNDgg MDAwM VYhdg6UTPH wMDAw MPS0BiWbYL AwMCB uDQowMDAwM DAyOD i4NVPaKQOg IG4NC jAwMDAwMDM wMTIg MDAwMDAgbg 0KMDA wMDAwNTEzN SAwMD AwMCBuDQow MDAwM WQ0KoviPEE wMDAw PR0MFqEkNB AwMDY 3MTAgMDAwM DAgbg 0KMDAwMDAw Njg0N iAwMDAwMCB uDQow MUBvGWM5LT ExIDA ePIMvWA5KO jAwMD AwMDgwMDgg MDAwM WUpuh0EDHM wMDAw CTR3WNIuNA AwMCB uDQowMDAwM DA5MT L7MVGyEMGp IG4NC jAwMDAwMDk zNTcg MDAwMDAgbg 0KMDA rLDEiAAO8W SAwMD AwMCBuDQow MDAwM MNiSYG0TBC wMDAw NF9BVxEzBZ AwMTA 3MTMgMDAwM DAgbg 0KMDAwMDAx MTE3M CAwMDAwMCB uDQow MDAwMDExMj UxIDA eTIOkKK9GC jAwMD XoTGO6LApo MDAwM DHxjr5AZSF wMDAx MTcwMyAwMD AwMCB pZLl5lcTjo GVyDQ d8QF5WJ8Ft emUgM sAVOs9Pg20 0IDIy UMPjNd2UQ4 luZm8 gMSAwIFINC i9JRF t9XAmsZRQ9 NDM5Y mUxMTMyNDM 2YzEy YTJiNDhiZj JlN2M +ZUo1NWw3A zQzOW JlMTEzMjQz NmMxM lNrTtH6JfM yZTdj Ao9uEJt+Pg 0Kc3R cvcL4yuYoT QoxMT w7Vz2ZDLDU T0YNC g== ID Date Data Source -[id number] 02/15/2018 08:59:03 PM [facility] Name Value Range Interpretation Description Data Sup porting Code Source(s) Document(s ) Alanine 38 U/L <33 [facility] [Enzymatic Hospital activity/volume] in Serum or Plasma ID Date Data Source -[id number] 02/15/2018 08:59:03 PM [facility] Name Value Range Interpretation Description Data Sup porting Code Source(s) Document(s ) Aspartate 66 U/L <32 [facility] [Enzymatic Hospital activity/volume] in Serum or Plasma ID Date Data Source -[id number] 02/15/2018 08:59:03 PM [facility] Name Value Range Interpretation Description Data Sup porting Code Source(s) Document(s ) Creatinine 0.59 0.4-1.0 [facility] [Mass/volume] mg/dL [facility] in Serum or Hospital Plasma Glomerular >60 [facility] filtration University rate/1.73 sq Hospital M predicted among non-blacks [Volume Rate/Area] in Serum or Plasma by Creatinine-ba sed formula (MDRD) Glomerular >60 [facility] filtration University rate/1.73 sq Hospital M predicted among blacks [Volume Rate/Area] in Serum or Plasma by Creatinine-ba sed formula (MDRD) ID Date Data Source -[id number] 02/15/2018 09:11:08 PM [facility] Value Range Interpretation Description Data Sup porting Code Source(s) Document(s ) Erythrocyte 56 mm/hr <30 H [facility] sedimentation University rate Hospital ID Date Data Source -[id number] 02/15/2018 10:03:40 PM [facility] Value Range Interpretation Description Data Sup porting Code Source(s) Document(s ) Leukocytes 5.6 4-10 [facility] [#/volume] in 10*3/uL [place] [facility] by Hospital Automated count Confirmed Erythrocytes [#/volume] in 4.33 10*6/uL 4.1-5.3 [facility] Blood by Automated count [facility]pi [facility]ia Hemoglobin [Mass/volume] in 13.4 g/dL 11.5-15.5 [facility] Hematocrit [Volume Fraction] 38.7 % 36-[address] [facility] of Blood by Automated count Ho spital Erythrocyte mean corpuscular 89.3 fL 80-[address] [facility] volume [Entitic volume] by Hos pital Automated count Erythrocyte mean corpuscular 30.9 pg 27-[address] [facility] hemoglobin [Entitic mass] by H ospital Automated count Erythrocyte mean corpuscular 34.6 g/dL 32.0-36.[address] [facility] hemoglobin concentration [facility] [Mass/volume] by Automated count Erythrocyte distribution width 15.0 % 11.5-14.5 H [facility] [Ratio] by Automated count Hos pital Platelets [#/volume] in Blood 150-400 [facility] University by Automated count Hospital Differential cell count method [facility] Neutrophils/100 leukocytes in 56 % 33-73 [facility] Blood by Automated count Hospi otilia Lymphocytes/100 leukocytes in 25 % 13-52 [facility] Blood by Automated count Hospi [facility]tilia Monocytes/100 leukocytes in 13 % 0-11 H [facility] Blood by Automated count Hospi otilia Eosinophils/100 leukocytes in 5 % 0-5 [facility] Blood by Automated count Hospi [facility]tilia Basophils/100 leukocytes in 1 % 0-2 [facility] Blood by Automated count Hospi otilia Neutrophils [#/volume] in 3.19 10*3/uL 1.8-7.[address] [facility] Blood by Automated count Hospi otilia Lymphocytes [#/volume] in 1.37 10*3/uL 1.2-4.[address] [facility] Blood by Automated count Hospi [facility]tilia Monocytes [#/volume] in Blood 0.71 10*3/uL 0-0.8 [facility] by Automated count Hospital Eosinophils [#/volume] in 0.27 10*3/uL 0-0.[address] [facility] Blood by Automated count Hospi [facility]tilia Basophils [#/volume] in Blood 0.06 10*3/uL 0-0.2 [facility] by Automated count Hospital ID Date Data Source -[id number] 02/16/2018 02:18:39 PM [facility] Name Value Range Interpretation Description Data Source(s ) Supporting Code Document(s ) Nuclear Ab 0-49 [facility] [Titer] in Serum CYTOPLASMIC PATTERN NOTED Nuclear Ab pattern.speckled [Titer] 250 1/dil 0-49 [facility] in Serum Nuclear Ab pattern.rim [Titer] in 0-49 [facility] Serum Nuclear Ab pattern.nucleolar [Titer] 0-49 [facility] in Serum ID Date Data Source -[id number] 02/19/2018 12:38:34 PM [facility] Name Value Range Interpretation Description Data Sup porting Code Source(s) Document(s ) Sjogrens syndrome-A 6 0-99 [facility] extractable nuclear [AU]/mL [facility] [Units/volume] in Hospital Serum by Immunofluorescence Sjogrens syndrome-B 10 0-99 [facility] extractable nuclear [AU]/mL [facility] Ab [Units/volume] in Hospital Serum by Immunofluorescence Dixon extractable 14 0-99 [place] nuclear Ab [AU]/mL [facility] [Units/volume] in Hospital Serum by Immunofluorescence Ribonucleoprotein 31 U/ML 0-99 [facility] extractable nuclear [facility] Ab [Units/volume] in Hospital Serum by Immunofluorescence SCL-70 extractable 21 0-99 [place] nuclear Ab [AU]/mL [facility] [Units/volume] in Hospital Serum Sadaf-1 extractable 6 0-99 [place] nuclear Ab [AU]/mL [facility] [Units/volume] in Hospital Serum by Immunofluorescence DNA double strand Ab 91 0-99 [facility] [Units/volume] in [IU]/mL [facility] Serum by Hospital Immunofluorescence Centromere Ab 24 0-99 [facility] [Units/volume] in [AU]/mL [place] Serum [facility] Histone IgG Ab 123 0-99 H [place] [Units/volume] in [AU]/mL [place] Serum [facility] ID Date Data Source [id number] 02/15/2018 08:40:08 PM [facility] Name Value Range Interpretation Description Data Sup porting Code Source(s) Document(s ) Color of Urine [facility] Clarity of [place] Urine [facility] Specific 1.017 1.003-1.03 [place] gravity of 0 [place] Urine by Hospital Refractometry automated pH of Urine by 5.0 5.0-8.0 [facility] Automated test University strip Hospital Protein 30 <10 [facility] [Mass/volume] mg/dL [facility] in Urine by Hospital Automated test strip Glucose Negative [facility] [Mass/volume] [facility] in Urine by Hospital Automated test strip Ketones Negative [facility] [Mass/volume] [facility] in Urine by Hospital Automated test strip Bilirubin.total Negative [place] [Presence] in [facility] Urine by Hospital Automated test strip Hemoglobin Negative [facility] [Presence] in [facility] Urine by Hospital Automated test strip Leukocyte Negative A [place] esterase [facility] [Presence] in Hospital Urine by Automated test strip Nitrite Negative [place] [Presence] in University Urine by Hospital Automated test strip Leukocytes 4 /HPF 0-5 [place] [#/area] in University Urine sediment [facility] by Automated count Erythrocytes 2 /HPF 0-3 [place] [#/area] in University Urine sediment [facility] by Automated count Bacteria None A [place] [#/area] in University Urine sediment [facility] by Automated count Epithelial 7 /HPF None [facility] [place] cells.squamous University [#/area] in [facility] Urine sediment by Automated count Mucus [#/area] None [facility] [place] in Urine [facility] sediment by [facility] Microscopy low power field ID Date Data Source [id number] 02/15/2018 08:50:08 PM [facility] Value Range Interpretation Description Data Sup porting Code Source(s) Document(s ) Protein 58 mg/dl [facility] [Mass/volume] University in Urine [facility] Creatinine 97.9 [facility] [Mass/volume] mg/dL [place] in Urine [facility] Protein/Creati 0.59 [facility] nine [Mass mg/mg{cre University Ratio] in at} Hospital Urine ID Date Data Source [id number] 02/02/2018 01:59:00 PM EDT [facility] Service Date and Time: 02/02/2018 1539Te chnologist: Shira Requested: CT ABD & PELVIS WITH CONTRASTReason for Patient V isit: EPIGASTRIC PAINReason for Exam: EPIGASTRIC PAINClinical: Epigastric armando n. Technique: Axial contrast enhanced images from the lung bases to the pubic symphysis using oral (per protocol) and 100 ml Isovue 370 intravenous contrast mate rial with coronal and sagittal re-formations. Comparison: None. Findings: Linda ng bases demonstrate age-related interstitial changes and mild dependent changes. Vi sualized portions of the heart and pericardium are normal. Liver, splee n, pancreas, bilateral adrenal glands and kidneys are essentially normal. Right renal hypodensities compatible with cysts measuring up to 3.3 cm. The enteric sys tem is without obstruction or acute inflammatory process. Normal terminal ileum and appendix identified in the right lower quadrant. Pelvis demonstrates no rmal bladder and evidence for prior hysterectomy. No pelvic fluid or ascit es. No free air. No adenopathy. Abdominal aorta and vasculature appears normal. Musculoskeletal structures demonstrate chronic levoconvex scoliosis and mild a ge-related degenerative change without focal osseous abnormality. Impression: 1 . Few right renal hypodensities most compatible with simple benign cysts up t o 3.3 cm. 2. No acute abdominopelvic pathology appreciated. Specifically, no ascites, focal inflammatory changes, adenopathy, or mass lesion. Elect ronically Signed by Dane Castillo MD 02/02/2018 04:23 P DD: NAFISA 02/02/2018 1620DT: [id number] 02/02/2018 1623DS: NAFISA 02/02/2018 1623 Name Value Range Interpretation Code Description Data Maryan rce(s) Supporting Document(s ) ID Date Data Source [id number] 12/28/2017 10:30:00 AM EDT [facility] ([facility], ) Name Value Range Interpretation Description Data Sup porting Code Source(s) Document(s ) Body Fluid FULL Normal (applies to Body Fluid MEDENT Culture REPORT IN non-numeric Culture (Jewish L <SEE results) Medical NOTE> Practice, ) <content>FULL REPORT IN LAB NOTES (eCW a nd Medent).</content>
<content></conten t>
<content>ORGANISM 1: ESCHERICHIA COLI</content>
<content></content><b r/><content>QUANTITY OF GROWTH HEAVY</content>
<content></content>< br/><content>ORGANISM 2: STREPTOCOCCUS VIRIDANS GROUP</content>
<content></ content>
<content>QUANTITY OF GROWTH HEAVY</content>
<content></con tent>
<content>ORGANISM 3: HAEMOPHILUS PARAINFLUENZAE</content>
<content></ content>
<content>QUANTITY OF GROWTH MODERATE</content>
<content>Be ta-lactamase Negative isolates are generally</content>
<content>suscept ible to ampicillin.</content>
<content>Beta- lactamase Positive isolates are resistant to</content>
<content>ampicillin but generally susceptible to amoxicillin-</content>
<content>clav ulanic acid and cephalosporins.</content>
<content></content>
<content></content>
<c onten t>ORGANISM 1: ESCHERICHIA COLI</content>
<content>ORGANISM 2: STREPTOCOCCUS VIRIDANS GROUP</content>
<content>OR GANISM 3: HAEMOPHILUS PARAINFLUENZAE</content>
<content></ content>
<content>ESCHERICHIA COLI: REACTION</con tent>
<content>EXTD BRD SPCTRM BETA LACTAMASE IV NEGATIVE FOR ESBL</content>
<content>TRIMETHOPRIM /SULFAMETHOXAZOLE IV 160mg TMP & 800mg SMXq6h S</content>
<jose alberto nt>TRIMETHOPRIM/SULFAMETHOXAZOLE PO Bactrim DS Bid S</content>
< content>AMPICILLIN IV 500mg q6h S</content>
< content>AMPICILLIN PO 500mg q6h fasting S</conten t>
<content>GENTAMICIN IV 80mg q8h S</conten t>
<content>CEFAZOLIN IV 1gm q8h S</content>
<content>LEVOFLOXACIN IV 500mg qd S</content>< br/><content>LEVOFLOXACIN PO 250mg qd S</content><b r/><content>LEVOFLOXACIN PO 500mg qd S</content>
<content>TOBRAMYCIN IV 80mg q8h S</content>
<content>CEFTRIAXONE IV 1gm q24h S</content><br/ ><content>CEFTAZIDIME IV 1gm q8h S</content><br/ ><content>AMPICILLIN/SULBACTAM IV 1.5g q6h S</content><br/ ><content>PIPERACILLIN/TAZOBACTAM IV 2.25 gm q6h S</content>< br/><content>AZTREONAM IV 1gm q8h S</content><b r/><content>ERTAPENEM IV 1gm qd S</content>
<content>MEROPENEM IV 1 gm q8h S</content><br/ ><content>MEROPENEM IV 500 mg q8h S</content><b r/><content>TIGECYCLINE IV 50mg q12h S</content><b r/><content>CEFEPIME IV 1 gm q12h S</content><b r/><content>CEFEPIME IV 2 gm q12h S</content>
<content></content>
<content>STREPTOCOCCUS VIRIDANS GROUP: REACTION</content>
<co ntent>TETRACYCLINE PO 250 mg qid I</content>
<c ontent>PENICILLIN G IV 1 mu q6h S</content>
<c ontent>PENICILLIN G PO 250mg q6h fasting S</content >
<content>AMPICILLIN IV 500mg q6h S</content >
<content>AMPICILLIN PO 500mg q6h fasting S< /content>
<content>ERYTHROMYCIN IV 500mg q6h S< /content>
<content>ERYTHROMYCIN PO 500mg q6h S< /content>
<content>CLINDAMYCIN IV 600mg q6h S< /content>
<content>CLINDAMYCIN PO 150mg q6h S< /content>
<content>LEVOFLOXACIN IV 500mg qd S</ content>
<content>LEVOFLOXACIN PO 250mg qd S</c ontent>
<content>LEVOFLOXACIN PO 500mg qd S</co ntent>
<content>VANCOMYCIN IV 500mg q8h S</co ntent>
<content>MOXIFLOXACIN (AVELOX) IV 400MG QD S</con tent>
<content>MOXIFLOXACIN (AVELOX) PO 400MG QD S</cont ent>
<content>CEFTRIAXONE IV 1gm q24h S</jose alberto nt>
<content>CEFOTAXIME IV 1gm q8h S</content>
<content></content>
<content>HAEMOPHILUS PARAINFLUENZAE: REACTION</content>
<co ntent>BETA LACTAMASE NEG</content>
<content>BETA LACTAMAS E POS</content>
<content>AMOXICILLIN/C A PO 250 mg q8h S</content>
<content>AMOXICILLIN/ CA PO 500 mg q8h S</content>
<content>TRIMETHOPRI M/SULFAMETHOXAZOLE IV 160mg TMP & 800mg SMXq6h S</content>
<con tent>TRIMETHOPRIM/SULFAMETHOXAZOLE PO Bactrim DS Bid S</content><br/ ><content>AMPICILLIN IV 500mg q6h S</content>
<content>AMPICILLIN PO 500mg q6h fasting S</con tent>
<content>CEFUROXIME SODIUM IV 750mg q8h S</con tent>
<content>CEFTRIAXONE IV 1gm q24h S</cont ent>
<content></content> ID Date Data Source [id number] 12/31/2017 06:36:00 AM EDT [facility] FULL REPOR T IN LAB NOTES (eCW and Medent). ORGANISM 1: ESCHERICHIA COLI QUANTITY OF GROWTH HEAVY ORGANISM 2: STREPTOCOCCUS VIRIDANS GROUP QUANTITY OF GROWTH HEAVY ORGANISM 3: HAEMOPHILUS PARAINFLUENZAE QUANTITY OF GROWTH MODERATEBeta-lactamase Negative isolates are generally susceptible to ampicillin.Beta-lactamase Positive isolates are resistant toampici llin but generally susceptible to amoxicillin- clavulanic acid and cephalosporins. ORGANISM 1: ESCHERICHIA COLIORGANISM 2: STREPTOCOCCUS VIRIDANS GROUPORGANISM 3: HAEMOPHILUS PARAINFLUENZAE ESCHERICHIA C CASANDRA: REACTION EXTD BRD SPCTRM BETA LACTAMASE IV NEGATIVE FOR ESBL TRIMETHOPRIM/SULFAMETHOXAZOLE IV 160mg TMP & 800mg SMXq6h S TRIMETHOPRIM/SULFAMETHOXAZOLE PO Bactrim DS Bid S AMPICILLIN IV 500mg q6h S AMPICILLIN PO 500mg q6h fasting S GENTAMI CAMPBELL IV 80mg q8h S CEFAZOLIN IV 1gm q8h S LEVOFLOXACIN IV 500mg qd S LEVOFLOXACIN PO 250mg qd S LEVOFLOXACIN PO 500mg qd S TOBRAMYCIN IV 80mg q8h S CEFTRIAXONE IV 1gm q24h S CEFTAZIDIME IV 1gm q8h S AMPICILLIN/SULBACTAM IV 1.5g q6h S PIPERACILLIN/TAZOBACTAM IV 2.25 gm q6h S AZTREONAM IV 1gm q8h S ERTAPENEM IV 1gm qd S ME ROPENEM IV 1 gm q8h S MEROPENEM IV 500 mg q8h S TIGECYCLINE IV 50mg q12h S CEFEPIME IV 1 gm q12h S CEFEPIME IV 2 gm q12h S STREPTOCOCCUS VIRIDAN S GROUP: REACTION TETRACYCLINE PO 250 mg qid I PENICILLIN G IV 1 mu q6h S PENICILLIN G PO 250mg q6h fasting S AMPICILLIN IV 500mg q6h S AMPICILLIN PO 500mg q6h fasting S ERYTHROMYCIN IV 500mg q6h S ERYTHROMYCIN PO 500mg q6h S CLINDAMYCIN IV 600mg q6h S CLINDAMYCIN PO 150mg q6h S LEVOFLOXACIN IV 500mg qd S LEVOFLOXACIN PO 250mg qd S LEVOFLOXACIN PO 500mg qd S VANCOMYCIN IV 500mg q8h S MOXIFLOXACIN (AVELOX) IV 400MG QD S MOXIFLOXACIN (AVELOX) PO 400MG QD S CEFTRIAXONE IV 1gm q24h S CEFOTAXIME IV 1gm q8h S HAEMOPHILUS PARAINFLUENZAE: REACTION BETA LACTAMASE NEG BETA LACTAMASE POS AMOXICILLIN/CA PO 250 mg q8 h S AMOXICILLIN/CA PO 500 mg q8h S TRIMETHOPR IM/SULFAMETHOXAZOLE IV 160mg TMP & 800mg SMXq6h S TRIMETHOPRIM/SULF AMETHOXAZOLE PO Bactrim DS Bid S AMPICILLIN IV 500mg q6h S AMPICILLIN PO 500mg q6h fasting S CEFUROXIME SODIUM IV 750mg q8h S CEFTRI AXONE IV 1gm q24h S Name Value Range Interpretation Code Description Data Maryan rce(s) Supporting Document(s ) ID Date Data Source [id number] 12/28/2017 09:26:00 AM EDT [facility] ([facility], ) Name Value Range Interpretation Description Data Sup porting Code Source(s) Document(s ) Surgical (SEE Normal (applies [facility]) to non-numeric Request For (Jewish study results) Service Medical Practice, ) FINAL DIAGNOSIS A - Colon, random biopsies: Fragments of benign colonic mucosa. No significant acute or chronic inflamma tion or evidence for microscopic colitis is noted. B - Descending colon, polyp, polypectomy : Benign fragment of colonic mucosa with f ocal hyperplastic changes. No adenomatous change is noted. 12/29/2017 - 1059 CLINICAL DIAGNOSIS Chronic diarrhea 12/28/2017 - 1408 GROSS DIAGNOSIS A - Received in formalin labeled "random colon biopsies, R/O microscopic colitis" is a 1 x 0.8 x 0.2 cm aggregate of mucosal fragments. All in one. B - Received in formalin labeled "biopsy polyp descending colon" is a 0.3 x 0.3 x 0.2 cm portion of mucosa. A ll in one. - 12/28/2017 - 1407 Signed Echo Em MD 12/29 1100 ID Date Data Source [id number] 12/29/2017 11:00:00 AM EDT [facility] Name Value Range Interpretation Code Description Data Supporting Source(s) Document(s ) DIGESTIVE [facility] FINAL DIAGNOSIS A - Colon, random biop sies: Fragments of benign colonic mucosa. No significant acute or c hronic inflammation or evidence for microscopic colitis is noted. B - Trevon cending colon, polyp, polypectomy: Benign fragment of colonic mucosa with f ocal hyperplastic changes. No adenomatous change is noted. 12/30/19 18 - 1059 CLINICAL DIAGNOSIS Chronic ytfgcglu01/26/2018 - 1407 GROSS DIAGNOSI S A - Received in formalin labeled "random colon biopsies, R/O microscopic colitis" is a 1 x 0.8 x 0.2 cm aggregate of mucosal fragments. All in one. B - Received in formalin labeled "biopsy polyp descending colon" is a 0.3 x 0.3 x 0.2 cm portion o f mucosa. All in one. -SH12/28/2017 1408 Signed Echo Em MD 12/29 1100 ID Date Data Source [id number] 12/28/2017 08:42:00 AM EDT [facility] Service Date and Time: // Technologist: Exam Requested: Reason for Patient Visit: CHRONIC DIARREHAReason for Exam: Patient Name: Pau Parkerparish root Date: 12/28/2017 8:42 AM Serge t Number: [id number] Date of : 1955 Age: 62 Room: O [facility] Gender: Female Note Status: Finalized Procedure: Colonoscopy Indica tions: Chronic diarrhea Providers: MD Kristen Fam MD: Yarelis Avalos SUPERVISOR GRIPS Requesting Provider: Medicines: Monitor ed Anesthesia Care Complications: No immediate complications. Procedure: Pre-Anesthesia Asse ssment: - Prior to the procedure, a History and Physical was performed, and patient medications and allergies were reviewed. The patient is competent. The risks and benefits of the procedure and the sedation options and risks were discussed with the patient. All questions were answered and informed consent was obtained. Patient identific ation and proposed procedure were verified by the physician, e nurse and the anesthesiologist in the procedure room. Mental Status Examination: normal. Airway Examination: normal orophary ngeal airway and neck mobility. Respiratory Examination: clear to auscultation. CV Examination: normal. Prophylactic Antibi otics: The patient does not require prophylactic antibiotic s. Prior Anticoagulants: The patient has taken no previous anticoagulant or antiplatelet agents. A Grade Assessment: II - A patient with mild systemic disease. After reviewing the risks and benefits, the patient was deemed in satisfactory condition to undergo the procedure. The anesthesia plan was to use monitored ane sthesia care (MAC). Immediately prior to administration of medi cations, the patient was re-assessed for adequacy to receive se datives. The heart rate, respiratory rate, oxygen saturatio ns, blood pressure, adequacy of pulmonary ventilation, and r esponse to care were monitored throughout the procedure. The physical status of the patient was re-assessed after the procedure. The Colonoscope was introduced throu gh the anus and advanced to the terminal ileum, with jerry ntification of the appendiceal orifice and IC valve. The co lonoscopy was performed without difficulty. The patien t tolerated the procedure well. The quality of the bowel preparation was good. The terminal ileum, the ileocecal valve and the rectum were photographed. Scope insertion time was 3 minutes. Scope withdrawal time was 8 minutes. The total duration of the procedure was 15 minutes. Findings: T he perianal and digital rectal examinations were normal. The terminal ileum ap peared normal. A 5 mm polyp was found in the descending colon. The polyp was s essile. The polyp was removed with a jumbo cold forceps. Resection and retrie van were complete. Verification of patient identification for the specimen was done by the physician and nurse using the patient's name, date and medical record number. Estimated blood loss was minimal. Normal muc alan was found in the entire colon. Biopsies for histology were taken with a c old forceps from the right colon, left colon and rectosigmoid colon for evalua tion of microscopic colitis. Non-bleeding external and internal hemor rhoids were found during retroflexion. The hemorrhoids were large. Impression: - The examined portion of the ileum was normal. - One 5 mm polyp in the descending colon, removed with a jumbo cold forc eps. Resected and retrieved. - Normal mucosa in the entire exami nathan colon. Biopsied. - Non-bleeding external and internal hemor rhoids. Recommendation: - Patient has a contact number available for emergencies . The signs and symptoms of potential delayed complicati ons were discussed with the patient. Return to normal activities tomorrow. Written discharge instructions were provided to the patient. - High fiber diet. - Continue present medications. - Grisel it pathology results. - Repeat colonoscopy in 5-10 years for inés veillance based on pathology results. - Return to GI clinic as previously scheduled on 01/11 at 3:10 PM. - Return to primary care physician. Christiane Murcia MD Bharat Murcia MD 12/28/2017 9:25: 22 AM This report has been signed electronically. Number of Addenda: 0 Note Initiated On: 12/28/2017 8:42 AM Estimated Blood Loss: Estimated bl ood loss: none. DD: REJI 12/28/2017 0842DT: PROVATION 12/28/2017 0842DS: REJI 12/28/2017 0925 Name Value Range Interpretation Code Description Data Maryan rce(s) Supporting Document(s ) ID Date Data Source [id number] 12/27/2017 08:05:00 AM ALFONSOT [facility] Service Date and Time: 12/27/2017 0842Te chnologist: Alberto Requested: ABD COMPLETE USReason for Patient Visit: CIR RHOSIS, DIARRHEAReason for Exam: DIARRHEA,UNSPECIFIEDULTRASOUND ABDOMEN: Real-time sonographic evaluation of the abdomen performed. The gallbladder h as been surgically removed. There is no intrahepatic or extrahepatic biliary di latation, common bile duct measuring 7 mm. There is heterogenous echotexture of th e liver without evidence of a hepatic mass. There is a hypoechoic area, which is so mewhat ill-defined in the subhepatic region adjacent to the upper pole of the right kidney, which is of uncertain significance and I would recommend further evaluating with a CT scan. The pancreas demonstrates no gross mass. The spleen is not signif icantly enlarged with a length of 11.8 cm. The kidneys are normal in size and echot exture, right kidney 13.8 x 5.2 x 5.3 cm and the left kidney 12.6 x 5.4 x 4.7 cm. The re is a cyst of the upper pole of the right kidney, 3.0 x 2.8 x 2.6 cm. There is no hydronephrosis. The visualized abdominal aorta is normal in caliber with no aneu rysm, distally measuring 1.8 x 1.6 cm in diameter. No ascites is seen. IMPRE SSION: Status post cholecystectomy. Heterogeneous echotexture of the liver. Ill-defined soft tissue in the subhepatic region is not well evaluated by ultraso und and I would recommend further evaluation with CT with IV contrast. No ascites. Electronically Signed by Jarvis Rodrigez MD 12/27/2017 05:03 P DD: KALPESH SANTIAGO 12/27/2017 0913DT: SUSANNE 12/27/2017 0947DS: NI 12/27/2017 1703 Name Value Range Interpretation Code Description Data Maryan rce(s) Supporting Document(s ) ID Date Data Source [id number] 12/27/2017 07:47:00 AM EDShayne SHEARER ([facility], ) Name Value Range Interpretation Description Data Sup porting Code Source(s) Document(s ) Gamma 28 U/L 5-55 Normal (applies Gamma [facility] glutamyl to non-numeric Glutamyltranspeptidase (S amaritan transferase results) Medical [Enzymatic Practice, activity/volu ) fl] in Serum or Plasma Bile acid 18.8 4.1-23 Normal (applies Bile Acids Fractionated [facility] fractions umol/L .9 to non-numeric (Jewish panel results) Medical [Moles/volume Practice, ] - Serum PC) Performed at: [address] [id number] Pediatric Registered Nurse: Damon Weir MD, Phon e: [phone] Smmie-0-Htsnqzzcfae 2.6 ng/mL <8.1 Normal (applies Alpha MEDE NT [Mass/volume] in Serum to non-numeric Fetoprotein (Jewish or Plasma results) Tumor Quant Medical Practice, ) THE AFP ASSAY IS PERFORMED ON THE [employer] BY CHEMILUMINESCENCE AND SHOULD NOT BE COMP ARED INTERCHANGEABLY WITH OTHER METHODS. IT SHOULD NOT BE USE D ALONE A SCREENING TEST OR DIAGNOSIS FOR THE PRES ENCE OR ABSENCE OF MALIGNANT DISEASE. THESE RESULTS ARE NO T INTERPRETABLE IN FEMALES. PREDICTIONS OF DISEASE RECURRENCE SHOULD NOT BE BASED SOLELY ON VALUES OBTAINED FROM SERIAL PATIENT S MARINO VALUES. ID Date Data Source [id number] 12/27/2017 07:47:00 AM EDT [facility] Name Value Range Interpretation Description Data Sup porting Code Source(s) Document(s ) Alt/SGPT 49 U/L 12-78 Normal (applies Alt/SGPT [facility] to non-numeric (Jewish results) [facility], ) Ast/Sgot 55 U/L 7-37 Above high normal Ast/Sgot [facility] ([facility], ) Bilirubin,Tota 0.9 0.2-1.0 Normal (applies Bilirubin,Tota MEDE NT l mg/dL to non-numeric l (Jewish results) [facility], ) Alkaline 92 U/L 45-117 Normal (applies Alkaline MEDENT Phosphatase to non-numeric Phosphatase (Jewish results) [facility], ) Bilirubin,Dire 0.2 0.0-0.2 Normal (applies Bilirubin,Dire MEDE NT ct mg/dL to non-numeric ct (Jewish results) [facility], ) Albumin 3.7 3.2-5.2 Normal (applies Albumin MED[facility] GM/DL to non-numeric (Jewish results) [facility]) Total Protein 7.9 6.4-8.2 Normal (applies Total Protein [facility] GM/DL to non-numeric (Jewish results) [facility]) Albumin/Globul 0.88 1.00-1.9 Below low normal Albumin/Globul MED ENT in Ratio 3 in Ratio ([facility]) ID Date Data Source [id number] 12/27/2017 07:47:00 AM EDT [facility] ([facility]) Name Value Range Interpretation Description Data Sup porting Code Source(s) Document(s ) Red Blood Count 4.36 10 4.00-5.4 Normal (applies Red Blood [facility] 0 to non-numeric Count (Jewish results) [facility]) White Blood 4.3 10 4.0-10.0 Normal (applies White Blood [facility] Count to non-numeric Count (Jewish results) [facility]) Hemoglobin 13.1 12.0-15. Normal (applies Hemoglobin MED[facility] g/dL 5 to non-numeric (Jewish results) [facility]) Hematocrit 37.7 % 36.0-47. Normal (applies Hematocrit [facility] 0 to non-numeric (Jewish results) [facility]) Mean 30.0 pg 27.0-33. Normal (applies Mean [facility] Corpuscular 0 to non-numeric Corpuscular (Jewish Hemoglobin results) Hemoglobin [facility]) Mean 34.7 32.0-36. Normal (applies Mean [facility] Corpuscular HGB g/dL 5 to non-numeric Corpuscular (Samari babin Conc results) HGB Conc [facility]) Mean 86.5 fl 80.0-96. Normal (applies Mean [facility] Corpuscular 0 to non-numeric Corpuscular (Jewish Volume results) Volume [facility]) Red Cell 13.9 % 11.5-14. Normal (applies Red Cell [facility]ENT Distribution 5 to non-numeric Distribution ([facility] results) Width [facility]) Platelet Count, 203 10 150-450 Normal (applies Platelet [facility] Automated to non-numeric Count, (Jewish results) [facility], ) Lymph % 22.6 % 24.0-44. Below low normal Lymph % [facility] 0 ([facility], ) [place] % 12.8 % 0.0-5.0 Above high [place] % MEDENT normal ([facility], ) Neutrophils % 58.7 % 36.0-66. Normal (applies Neutrophils % MEDENT 0 to non-numeric ([facility] results) Medical Practice, ) Baso % 0.7 % 0.0-1.0 Normal (applies Baso % MEDENT to non-numeric ([facility] results) Medical Practice, ) Eos % 4.7 % 0.0-3.0 Above high Eos % MEDENT normal ([facility], ) Nucleated Red 0.0 % 0-0 Normal (applies Nucleated Red MEDENT Blood Cell % to non-numeric Blood Cell % [facility], ) Immature 0.5 % 0-3.0 Normal (applies Immature MEDENT Granulocyte % to non-numeric Granulocyte % [facility], ) Neutrophils # 2.5 10 1.8-7.7 Normal (applies Neutrophils # MEDENT to non-numeric (Jewish results) Medical Practice, ) [place] # 0.6 10 0.0-0.8 Normal (applies [place] # MEDENT to non-numeric (Jewish results) [facility] Practice, ) Lymph # 1.0 10 1.5-4.5 Below low normal Lymph # MEDENT ([facility], ) Eos # 0.2 10 0.0-0.50 Normal (applies Eos # MEDENT to non-numeric ([facility] results) Medical Practice, ) Baso # 0.0 10 0.0-0.2 Normal (applies Baso # MEDENT to non-numeric ([facility] results) Medical Practice, ) ID Date Data Source [id number] 12/27/2017 07:47:00 AM EDT MEDENT ([facility], ) Name Value Range Interpretation Description Data Sup porting Code Source(s) Document(s ) Creatinine 0.58 0.55-1.3 Normal (applies Creatinine For MEDENT For GFR mg/dL 0 to non-numeric GFR (Jewish results) Medical Practice, ) Glomerular > 60.0 >45 Normal (applies Glomerular MEDENT Filtration to non-numeric Filtration (Jewish Rate results) Rate Medical Practice, ) <content>Units are mL/min/1.73 m2</content>
<content></content><br/ ><content>Chronic Kidney Disease Staging per NKF:</content>
<content></content><b r/><content>Stage I & II GFR >=60 Normal to Mildly Decreased</content><br/ ><content>Stage III GFR 30-59 Moderately Decreased</content>
<cont ent>Stage IV GFR 15-29 Severely Decreased</content>
<content>Stage V GFR <15 Very Little GFR Left</content>
<content>ESRD GFR <15 on [employer]</content>
<content></content> ID Date Data Source [id number] 12/27/2017 07:47:00 AM EDT [facility] Name Value Range Interpretation Description Data Sup porting Code Source(s) Document(s ) Urea 9 mg/dL 7-18 Normal (applies to Blood Urea MEDENT nitrogen non-numeric Nitrogen (Jewish [Mass/volume results) Medical ] in Serum Practice, or Plasma PC) ID Date Data Source [id number] 12/29/2017 11:09:00 AM EDT [facility] Name Value Range Interpretation Description Data Sup porting Code Source(s) Document(s ) AST/SGOT 55 U/L 7-37 H [facility] ALT/SGPT 49 U/L 12-78 N [facility] ALKALINE 92 U/L 45-117 N [facility] PHOSPHATASE [facility] BILIRUBIN,TOTA 0.9 0.2-1.0 N [facility] L MG/DL [facility] BILIRUBIN,DIRE 0.2 0.0-0.[address] MG/DL [facility] TOTAL PROTEIN 7.9 6.4-8.2 N [facility] GM/DL [facility] ALBUMIN 3.7 3.2-5.2 N [facility] GM/DL [facility] ALBUMIN/GLOBUL 0.88 1.00-1.9 [facility] IN RATIO 3 [facility] Center ID Date Data Source [id number] 12/29/2017 11:09:00 AM [facility] Name Value Range Interpretation Description Data Sup porting Code Source(s) Document(s ) BLOOD UREA 9 MG/DL 7-18 N [facility] NITROGEN [facility] ID Date Data Source [id number] 12/29/2017 11:09:00 AM [facility] Name Value Range Interpretation Description Data Sup porting Code Source(s) Document(s ) CREATININE FOR 0.58 0.55-1.[address] [facility] GFR MG/DL 0 [facility] GLOMERULAR > 60.0 >[address] [facility] FILTRATION [facility] RATE Center Units are mL/min/1.73 m2 Chronic Kidn ey Disease Staging per NKF: Stage I & II GFR >=60 Normal to Mildly Decrease d Stage III GFR 30-59 Moderately Decreased Stage IV GFR 15-29 Severely Decreased Stage V GFR <15 Very Little GFR Left ESRD GFR <15 on [employer] ID Date Data Source [id number] 12/29/2017 11:09:00 AM [facility] Name Value Range Interpretation Description Data Sup porting Code Source(s) Document(s ) GAMMA 28 U/L 5-[address] [facility] GLUTAMYLTRANSPEPTIDASE [facility] ID Date Data Source [id number] 12/29/2017 11:09:00 AM [facility] Name Value Range Interpretation Description Data Sup porting Code Source(s) Document(s ) ALPHA 2.6 NG/ML <8.[address] [facility] FETOPROTEIN [facility] TUMOR QUANT [place] THE AFP ASSAY IS PERFORMED ON THE [employer] BY CHEMILUMINESCENCE AND SHOULD NOT BE COMPARED INTERCHANGEABLY WITH OTHER M ETHODS. IT SHOULD NOT BE USED ALONE A SCREENING TEST OR DIAGNOSIS FOR THE PRES ENCE OR ABSENCE OF MALIGNANT DISEASE. THESE RESULTS ARE NOT INTERPRETABLE IN PREGNAN T FEMALES. PREDICTIONS OF DISEASE RECURRENCE SHOULD NOT BE BASED SOLELY ON VALUES OB TAINED FROM SERIAL PATIENT SERUM VALUES. ID Date Data Source [id number] 12/29/2017 08:07:00 AM EDT [facility] Name Value Range Interpretation Description Data Sup porting Code Source(s) Document(s ) BILE ACIDS 18.8 4.1-23.9 N [facility] FRACTIONATED umol/L [facility] Performed at: - [address] [id number] Pediatric Registered Nurse: Damon Weir MD, Phon e: [phone] ID Date Data Source [id number] 12/27/2017 08:37:00 AM EDT [facility] Name Value Range Interpretation Description Data Sup porting Code Source(s) Document(s ) WHITE BLOOD 4.3 10 4.0-10.[address] [facility] COUNT Medical [place] RED BLOOD COUNT 4.36 10 4.00-5.[address] HEMOGLOBIN 13.1 12.0-15. N [facility] g/dl [address] [place] [address] HEMATOCRIT 37.7 % 36.0-47. N [address] MEAN 86.5 fl 80.0-96. N [facility] CORPUSCULAR 0 [facility] VOLUME Center MEAN 30.0 pg 27.0-33. N [facility] CORPUSCULAR [address] [place] [address] HEMOGLOBIN Center MEAN 34.7 32.0-36. N [facility] CORPUSCULAR HGB g/dl [address] [place] [address] CONC [place] RED CELL 13.9 % 11.5-14. N [facility] DISTRIBUTION 5 [facility] WIDTH Center PLATELET COUNT, 203 10 150-450 N [facility] NEUTROPHILS % 58.7 % 36.0-66. N [address] LYMPH % 22.6 % 24.0-44. L [address] MONO % 12.8 % 0.0-5.0 H [facility] EOS % 4.7 % 0.0-3.0 H [facility] BASO % 0.7 % 0.0-1.0 [facility] IMMATURE 0.5 % 0-3.[address] [facility] GRANULOCYTE % [facility] NUCLEATED RED 0.0 % 0-[address] [facility] BLOOD CELL % [facility] NEUTROPHILS # 2.5 10 1.8-7.7 N [facility] LYMPH # 1.0 10 1.5-4.5 L [facility] MONO # 0.6 10 0.0-0.8 N [facility] EOS # 0.2 10 0.0-0.50 N [facility] BASO # 0.0 10 0.0-0.2 N [facility] ID Date Data Source [id number] 11/28/2017 09:30:00 AM EDT [facility], [facility] Name Value Range Interpretation Description Data Sup porting Code Source(s) Document(s ) Bacteria <pending> Normal (applies Culture Stool MEDENT identified in to non-numeric And Gram (Jewish Stool by Culture results) Stain Medical Practice, ) Clostridium <pending> Normal (applies Clostridium MEDENT difficile DNA to non-numeric Difficile PCR ([facility] babin [Presence] in results) Medical Unspecified Practice, specimen by ) Probe and target amplification method Lactoferrin NEGATIVE Normal (applies Stool MEDENT [Presence] in to non-numeric Lactoferrin-p ([facility] by results) olys by [facility] Medical Immunoassay Practice, ) ID Date Data Source [id number] 11/28/2017 09:30:00 AM EDT MEDENT ([facility], ) Name Value Range Interpretation Code Description Data Maryan rce(s) Supporting Document(s ) Result 1 (SEE NOTE) . Normal (applies to Result 1 MEDENT non-numeric (Jewish results) Medical Practice, ) No ova, cysts, or parasites seen. . One negative specimen does not rule out the possibility of a parasitic infection. Performed at: [address] [place] [id number] Pediatric Registered Nurse: Pranay Blanton MD, Phone: [phone] Performed at: RN - [facility] [address] [id number] Pediatric Registered Nurse: Fátima Peña MD, Phone: [phone] O+P Exam Final report . Normal (applies to O+P Exam MEDENT ( Jewish non-numeric results) Medical [facility], ) These results were obtained using wet pr eparation(s) and trichrome stained smear. This test does not include testing for Cryptosporidium parvum, Cyclospora, or Microsporidia. ID Date Data Source [id number] 11/28/2017 09:30:00 AM EDT MEDENT ([facility], ) Name Value Range Interpretation Description Data Sup porting Code Source(s) Document(s ) Microsporidia Negative Negative Normal (applies Microsporidium MEDEN T identified in to non-numeric Exam Stool ([facility] Stool by results) Medical Trichrome stain Practice, modified ) Microscopic (SEE Normal (applies Gram Stain MEDENT observation NOTE) to non-numeric (Jewish [Identifier] in results) Medical Body fluid by Practice, Gram stain ) MANY GRAM NEGATIVE RODS MANY GRAM POSITIVE RODS MANY GRAM POSITIVE COCCI IN PAIRS MODERATE YEAST LIKE ORGANISM ID Date Data Source [id number] 11/28/2017 09:30:00 AM EDT MEDENT ([facility], ) Name Value Range Interpretation Description Data Sup porting Code Source(s) Document(s ) Gastrointesti This Normal (applies Gastrointestinal MED ENT nal (GI) Gastrointes to non-numeric (GI) Panel (Jewish Panel <SEE NOTE> results) Medical Practice, ) This Gastrointestinal PCR Panel detects the following bacteria, parasites and viruses: Campylo bacter (jejuni, coli and upsaliensis), Clostridium difficile (toxin A/B), Plesiomonas shigelloides, Salmonella, Ye rsinia enterocolitica, Vibrio (parahaemolyticus , vulnificus and cholerae), Vibrio clolerae, Enteroaggreg ative E. coli (EAEC), Enteropathogenis E. coli (EPEC), Enterotoxigenic E. coli (ETEC) it/st, Shiga-like producing E. coli (STEC) stx1/stc2, E.coli O157, Shigella/Enteroi nvasive E. coli (EIEC), Cryptosporidium, Cyclospora caye tanensis, Entamoeba histolytica, Giardia lamblia, Adenovirus F 40/41, Astrovirus, Norovirus GI/GII, Rotavirus A and Sapovirus (I, II, IV, V). POSITIVE by MULTIPLEXED NUCLEIC ACID PCR ORGANISM 1: CAMPYLOBACTER UNFORMED stool. Campylobacter outbreaks have been associ ated with unpasteurized dairy, contaminated water, poultry and produce. Campylobacter are a leading ca use of enteritis in the and the most common cause of foodbourne illness. Infections range fr om asymptomatic to severe infections characterized by bl oody or non- bloody diarrhea, fever and abdominal lifts and cranes inspector mping. ORGANISM 1: CAMPYLOBACTER ID Date Data Source [id number] 11/28/2017 02:34:00 PM EDT [facility] MANY GRAM NEGATIVE RODS MANY GRAM POS ITIVE RODS MANY GRAM POSITIVE COCCI IN PAIRS MODERATE YEAST LIKE ORGANISM NEGATIVE This Gastrointestinal PCR Panel detects the following bacteria, parasites and viruses: Campylobacter (jejuni, coli and upsaliensis), Clostridium difficile (toxin A/B), Plesiomonas shigelloides, Salmonel la, Yersinia enterocolitica, Vibrio (parahaemolyticus, vulnificus and choler ae), Vibrio clolerae, Enteroaggregative E. coli (EAEC), Enteropathogenis E. coli (E PEC), Enterotoxigenic E. coli (ETEC) it/st, Shiga-like producing E. coli (STEC) stx1 /stc2, E.coli O157, Shigella/Enteroinvasive E. coli (EIEC), Cryptosporidium, Cyclosp ora cayetanensis, Entamoeba histolytica, Giardia lamblia, Adenovirus F 40/41, Ast rovirus, Norovirus GI/GII, Rotavirus A and Sapovirus (I, II, IV, V). POSITIVE by MULTIPLEXED NUCLEIC ACID PCR ORGANISM 1: CAMPYLOBACT ER UNFORMED stool.Campylobacter outbreaks have been associated withunpasteurized dairy, contaminated water, poultry andproduce. Campylobacter are a leading cause ofenteritis in the and the most commo n cause offoodbourne illness. Infections range from asymptomaticto severe infecti ons characterized by bloody or non-bloody diarrhea, fever and abdominal cramping. ORGANISM 1: CAMPYLOBACTER Name Value Range Interpretation Code Description Data Maryan rce(s) Supporting Document(s ) ID Date Data Source [id number] 12/02/2017 08:16:00 AM EDT [facility] MANY GRAM NEGATIVE RODS MANY GRAM POS ITIVE RODS MANY GRAM POSITIVE COCCI IN PAIRS MODERATE YEAST LIKE ORGANISM NEGATIVE This Gastrointestinal PCR Panel detects the following bacteria, parasites and viruses: Campylobacter (jejuni, coli and upsaliensis), Clostridium difficile (toxin A/B), Plesiomonas shigelloides, Salmonel la, Yersinia enterocolitica, Vibrio (parahaemolyticus, vulnificus and choler ae), Vibrio clolerae, Enteroaggregative E. coli (EAEC), Enteropathogenis E. coli (E PEC), Enterotoxigenic E. coli (ETEC) it/st, Shiga-like producing E. coli (STEC) stx1 /stc2, E.coli O157, Shigella/Enteroinvasive E. coli (EIEC), Cryptosporidium, Cyclosp ora cayetanensis, Entamoeba histolytica, Giardia lamblia, Adenovirus F 40/41, Ast rovirus, Norovirus GI/GII, Rotavirus A and Sapovirus (I, II, IV, V). POSITIVE by MULTIPLEXED NUCLEIC ACID PCR ORGANISM 1: CAMPYLOBACT ER UNFORMED stool.Campylobacter outbreaks have been associated withunpasteurized dairy, contaminated water, poultry andproduce. Campylobacter are a leading cause ofenteritis in the and the most commo n cause offoodbourne illness. Infections range from asymptomaticto severe infecti ons characterized by bloody or non-bloody diarrhea, fever and abdominal cramping. ORGANISM 1: CAMPYLOBACTER Name Value Range Interpretation Description Data Sup porting Code Source(s) Document(s ) MICROSPORIDIUM Negative Negative N [facility] ID Date Data Source [id number] 11/28/2017 02:34:00 PM EDT [facility] MANY GRAM NEGATIVE RODS MANY GRAM POS ITIVE RODS MANY GRAM POSITIVE COCCI IN PAIRS MODERATE YEAST LIKE ORGANISM NEGATIVE This Gastrointestinal PCR Panel detects the following bacteria, parasites and viruses: Campylobacter (jejuni, coli and upsaliensis), Clostridium difficile (toxin A/B), Plesiomonas shigelloides, Salmonel la, Yersinia enterocolitica, Vibrio (parahaemolyticus, vulnificus and choler ae), Vibrio clolerae, Enteroaggregative E. coli (EAEC), Enteropathogenis E. coli (E PEC), Enterotoxigenic E. coli (ETEC) it/st, Shiga-like producing E. coli (STEC) stx1 /stc2, E.coli O157, Shigella/Enteroinvasive E. coli (EIEC), Cryptosporidium, Cyclosp ora cayetanensis, Entamoeba histolytica, Giardia lamblia, Adenovirus F 40/41, Ast rovirus, Norovirus GI/GII, Rotavirus A and Sapovirus (I, II, IV, V). POSITIVE by MULTIPLEXED NUCLEIC ACID PCR ORGANISM 1: CAMPYLOBACT ER UNFORMED stool.Campylobacter outbreaks have been associated withunpasteurized dairy, contaminated water, poultry andproduce. Campylobacter are a leading cause ofenteritis in the [place] and the most commo n cause offoodbourne illness. Infections range from asymptomaticto severe infecti ons characterized by bloody or non-bloody diarrhea, fever and abdominal cramping. ORGANISM 1: CAMPYLOBACTER Name Value Range Interpretation Code Description Data [facility] rce(s) Supporting Document(s ) ID Date Data Source [id number] 12/02/2017 08:16:00 AM EDT [facility] MANY GRAM NEGATIVE RODS MANY GRAM POS ITIVE RODS MANY GRAM POSITIVE COCCI IN PAIRS MODERATE YEAST LIKE ORGANISM NEGATIVE This Gastrointestinal PCR Panel detects the following bacteria, parasites and viruses: Campylobacter (jejuni, coli and upsaliensis), Clostridium difficile (toxin A/B), Plesiomonas shigelloides, Salmonel la, Yersinia enterocolitica, Vibrio (parahaemolyticus, vulnificus and choler ae), Vibrio clolerae, Enteroaggregative E. coli (EAEC), Enteropathogenis E. coli (E PEC), Enterotoxigenic E. coli (ETEC) it/st, Shiga-like producing E. coli (STEC) stx1 /stc2, E.coli O157, Shigella/Enteroinvasive E. coli (EIEC), Cryptosporidium, Cyclosp ora cayetanensis, Entamoeba histolytica, Giardia lamblia, Adenovirus F 40/41, Ast rovirus, Norovirus GI/GII, Rotavirus A and Sapovirus (I, II, IV, V). POSITIVE by MULTIPLEXED NUCLEIC ACID PCR ORGANISM 1: CAMPYLOBACT ER UNFORMED stool.Campylobacter outbreaks have been associated withunpasteurized dairy, contaminated water, poultry andproduce. Campylobacter are a leading cause ofenteritis in the [place] and the most commo n cause offoodbourne illness. Infections range from asymptomaticto severe infecti ons characterized by bloody or non-bloody diarrhea, fever and abdominal cramping. ORGANISM 1: CAMPYLOBACTER Name Value Range Interpretation Code Description Data Supporting Source(s) Document(s ) O+P EXAM Final . N [facility] These results were obtained using wet pr eparation(s) and trichrome stained smear. This test does not include testing for Cryptosporidium parvum, Cyclospora, or Microsporidia. RESULT 1 . [facility] Ce nter No ova, cysts, or parasites seen. . One negative specimen does no t rule out the possibility of a parasitic infection. Performed at: [address] [employer] [address] [id number] Pediatric Registered Nurse: Pranay Blanton MD, Phone: [phone] Performed at: RN - [facility] [address] [id number] Pediatric Registered Nurse: Fátima Peña MD, Phone: [phone] ID Date Data Source [id number] 11/28/2017 02:34:00 PM EDT [facility] MANY GRAM NEGATIVE RODS MANY GRAM POS ITIVE RODS MANY GRAM POSITIVE COCCI IN PAIRS MODERATE YEAST LIKE ORGANISM NEGATIVE This Gastrointestinal PCR Panel detects the following bacteria, parasites and viruses: Campylobacter (jejuni, coli and upsaliensis), Clostridium difficile (toxin A/B), Plesiomonas shigelloides, Salmonel la, Yersinia enterocolitica, Vibrio (parahaemolyticus, vulnificus and choler ae), Vibrio clolerae, Enteroaggregative E. coli (EAEC), Enteropathogenis E. coli (E PEC), Enterotoxigenic E. coli (ETEC) it/st, Shiga-like producing E. coli (STEC) stx1 /stc2, E.coli O157, Shigella/Enteroinvasive E. coli (EIEC), Cryptosporidium, Cyclosp ora cayetanensis, Entamoeba histolytica, Giardia lamblia, Adenovirus F 40/41, Ast rovirus, Norovirus GI/GII, Rotavirus A and Sapovirus (I, II, IV, V). POSITIVE by MULTIPLEXED NUCLEIC ACID PCR ORGANISM 1: CAMPYLOBACT ER UNFORMED stool.Campylobacter outbreaks have been associated withunpasteurized dairy, contaminated water, poultry andproduce. Campylobacter are a leading cause ofenteritis in the and the most commo n cause offoodbourne illness. Infections range from asymptomaticto severe infecti ons characterized by bloody or non-bloody diarrhea, fever and abdominal cramping. ORGANISM 1: CAMPYLOBACTER Name Value Range Interpretation Code Description Data Maryan rce(s) Supporting Document(s ) ID Date Data Source [id number] 10/07/2017 04:38:00 PM EST [facility] ([facility]) Name Value Range Interpretation Description Data Sup porting Code Source(s) Document(s ) Thyroid 3.250 Thyroid MEDENT Stimulating Stimulating ([facility]) Free T4 1.01 Free T4 MED[facility] ([facility]) ID Date Data Source [id number] 10/07/2017 04:38:00 PM EST [facility] ([facility]) Name Value Range Interpretation Description Data Sup porting Code Source(s) Document(s ) Triglycerides 240 <150 Triglycerides [facility] ([facility]) HDL 37 >40.0 HDL [facility] ([facility]) Cholesterol 150 <200 Cholesterol [facility] ([facility]) Cholesterol in 65.0 LDL Cholesterol MEDENT LDL (Cardiology [Mass/volume] in Associates Serum or Plasma of [facility]) by calculation Chol/HDL Ratio 4.054 <5 Chol/HDL Ratio [facility] ([facility]) ID Date Data Source [id number] 10/07/2017 04:38:00 PM EST [facility] ([facility]) Name Value Range Interpretation Description Data Sup porting Code Source(s) Document(s ) Albumin 3.5 Albumin MEDENT [Mass/volume] in Serum/Plasma (Cardiolog y Serum or Plasma [facility]) Alanine 43 Alt - SGPT MEDENT aminotransferase (Cardiology [Enzymatic Associates activity/volume] of [facility]) in Serum or Plasma Calcium 9.2 Calcium MEDENT [Mass/volume] in Ser/Plasma (Cardiology Serum or Plasma Mass/Vol [facility]) Chloride 106 Chloride MEDENT [Moles/volume] in Serum/Plasma (Cardiolo gy Serum or Plasma [facility]) Carbon dioxide, 30 Carbon MEDENT total Dioxide (Cardiology [Moles/volume] in Ser/Plasm Associates Serum or Plasma of [facility]) Protein 7.6 Protein Total MEDENT [Mass/volume] in (Cardiology Serum or Plasma [facility]) Alkaline 80 Alkaline MEDENT phosphatase Phosphatase (Cardiology [Enzymatic Associates activity/volume] of [facility]) in Serum or Plasma Potassium 3.9 Potassium MEDENT [Moles/volume] in (Cardiology Serum or Plasma [facility]) Aspartate 45 Ast - Sgot MEDENT aminotransferase (Cardiology [Enzymatic Associates activity/volume] of [facility]) in Serum or Plasma Urea nitrogen 11 BUN - Urea MED[facility] [Mass/volume] in Nitrogen (Cardiology Serum or Plasma [facility]) Sodium 144 Sodium [facility] ([facility]) Glucose 97 83-110 Glucose [facility] ([facility]) Creatinine For GFR 0.57 Creatinine MEDENT For GFR ([facility]) ID Date Data Source [id number] 10/07/2017 06:42:[address] [facility] Name Value Range Interpretation Description Data Sup porting Code Source(s) Document(s ) GLUCOSE, 97 MG/DL 70-[address] [facility] FASTING [facility] BLOOD UREA 11 MG/DL 7-18 [facility] CREATININE FOR 0.57 0.55-1.[address] [facility] GFR MG/DL 0 Medical [place] GLOMERULAR > 60.0 >[address] [facility] FILTRATION [facility] Units are mL/min/1.73 m2 Chronic Kidn ey Disease Staging per NKF: Stage I & II GFR >=60 Normal to Mildly Decrease d Stage III GFR 30-59 Moderately Decreased Stage IV GFR 15-29 Severely Decreased Stage V GFR <15 Very Little GFR Left ESRD GFR <15 on [employer] SODIUM LEVEL 144 MEQ/L 136-145 [facility] POTASSIUM SERUM 3.9 MEQ/L 3.5-5.1 [facility] CHLORIDE LEVEL 106 MEQ/L 98-107 [facility] CARBON DIOXIDE LEVEL 30 MEQ/L 21-32 [facility] ANION GAP 8 MEQ/L 8-16 [facility] nter CALCIUM LEVEL 9.2 MG/DL 8.8-10.2 [facility] AST/SGOT 45 U/L 7-37 H [facility] nt ALT/SGPT 43 U/L 12-78 [facility] ALKALINE PHOSPHATASE 80 U/L 45-117 [facility] BILIRUBIN,TOTAL 0.8 MG/DL 0.2-1.0 [facility] TOTAL PROTEIN 7.6 GM/DL 6.4-8.2 [facility] ALBUMIN 3.5 GM/DL 3.2-5.2 [facility] nter ALBUMIN/GLOBULIN RATIO 0.85 1.00-1.93 [facility] ID Date Data Source [id number] 10/07/2017 07:12:00 PM [facility] Name Value Range Interpretation Description Data Sup porting Code Source(s) Document(s ) CREATININE, 252.0 [facility] URINE MG/DL [facility] MALB URINE 639.0 N [facility] SIEMENS MG/L [facility] CHICO/CREAT 253.5 0.0-30.0 [facility] RATIO MCG/MG [facility] [employer] STATES THAT MICROALBUMINURIA IS PRESENT IF THE MICROALBUMIN/CREATININE RATIO EXCEEDS 30 MCG/MG. THE THRESHOLD FOR CLINICAL ALBUMINURIA IS REACHED AT 300 MCG/MG. T HE CLASSIFICATION OF A PATIENT SHOULD BE BASED UPON AT LEAST 2 OF 3 ABNORMAL RESU LTS ON SPECIMENS COLLECTED WITHIN A 3 TO 6 MONTH TIME FRAME. ID Date Data Source [id number] 10/07/2017 06:42:00 PM [facility] Name Value Range Interpretation Description Data Sup porting Code Source(s) Document(s ) TRIGLYCERIDES 240 <150 [facility] LEVEL MG/DL [facility] CHOLESTEROL 150 <200 [facility] LEVEL MG/DL [facility] HDL CHOLESTEROL 37 MG/DL >40 [facility] LDL CHOLESTEROL 65.0 <100 N [facility] MG/DL [facility] NON-HDL-C 113 N [facility] MG/DL [facility] CHOLESTEROL RISK 4.054 <5 N [facility] ID Date Data Source [id number] 10/07/2017 06:42:00 PM [facility] Name Value Range Interpretation Description Data Sup porting Code Source(s) Document(s ) THYROID 3.250 0.358-3. N [facility] STIMULATING uIU/ML 740 [facility] HORMONE [place] ID Date Data Source [id number] 10/07/2017 06:42:00 PM [facility] Name Value Range Interpretation Description Data Sup porting Code Source(s) Document(s ) FREE T4 1.01 NG/DL 0.76-1.46 [facility] ID Date Data Source LIPID PANEL (CARDIAC RISK) 10/07/2017 12:00:00 AM EST eCW1 ( [facility]) Name Value Range Interpretation Description Data Sup porting Code Source(s) Document(s ) Triglyceride 240 <150 TRIGLYCERIDES eCW1 [Mass/volume] LEVEL ([facility] in Serum or Family Plasma by Health calculation Center) 113 NON-HDL-C eCW1 ([facility]) 4.054 <5 CHOLESTEROL RISK eCW1 RATIO ([facility]) Cholesterol in 65.0 <100 LDL CHOLESTEROL eCW1 LDL ([facility] [Mass/volume] Family in Serum or Health Plasma by Center) calculation Cholesterol 150 <200 CHOLESTEROL eCW1 [Moles/volume] LEVEL ([facility] in Serum or [facility] Plasma Health [place]) Cholesterol in 37 >40 HDL CHOLESTEROL eCW1 HDL ([facility] [Moles/volume] Family in Serum or [facility] Plasma Center) ID Date Data Source [id number] 10/07/2017 12:00:00 AM EST eCW1 ([facility]) Name Value Range Interpretation Description Data Sup porting Code Source(s) Document(s ) Microalbu 252.0 CREATININE, eCW1 min/Creat URINE ([facility] [Mass Center) Ratio] in Urine Microalbu 253.5 0.0-30.0 CHICO/CREAT RATIO eCW1 min/Creat ([facility] [Ratio] Center) in Urine Albumin/C 639.0 MALB URINE eCW1 reatinine SIEMENS ([facility] [[facility] Ratio] in Center) Urine ID Date Data Source TSH 10/07/2017 12:00:00 AM EST eCW1 ([facility]) Name Value Range Interpretation Code Description Data Maryan rce(s) Supporting Document(s ) 3.250 0.358-3.74 THYROID eCW1 0 STIMULATING ([facility]) ID Date Data Source FREE T4 10/07/2017 12:00:00 AM EST eCW1 ([facility]) Name Value Range Interpretation Code Description Data Maryan rce(s) Supporting Document(s ) 1.01 0.76-1.46 FREE T4 eCW1 ([facility]) ID Date Data Source [id number] 08/01/2017 04:42:00 PM EST MEDENT ([facility]) Name Value Range Interpretation Description Data Sup porting Code Source(s) Document(s ) Brain 86 Brain [facility] Natriuretic Natriuretic ([facility]iology Peptide [facility]) Troponin 0.02 Troponin [facility] ([facility]) ID Date Data Source [id number] 08/01/2017 04:42:00 PM EST [facility] ([facility]) Name Value Range Interpretation Code Description Data Maryan rce(s) Supporting Document(s ) Creatine 1.0 CPK [facility] kinase (Cardiology [[facility] activity/volu [facility]) me] in Serum or Plasma CPK-MB 1.58 CPK-MB [facility] ([facility]) ID Date Data Source [id number] 08/01/2017 04:40:00 PM EST MEDENT ([facility]) Name Value Range Interpretation Description Data Sup porting Code Source(s) Document(s ) Red Blood 4.40 4.00-5.4 Red Blood [facility] Count 0 Count ([facility]) White Blood 4.4 4.0-10.0 White Blood [facility] Count Count ([facility]) Hematocrit 38.1 Hematocrit MED[facility] ([facility]) Hemoglobin 13.0 Hemoglobin [facility] ([facility]) Platelets 286 172-450 Platelets [facility] ([facility]) ID Date Data Source [id number] 08/01/2017 11:53:00 AM [facility] Service Date and Time: 08/01/2017 1210Te chnologist: Suzette Requested: CT ANGIO CHESTReason for Patient Visit: HIGH BLOO D PRESSUREReason for Exam: eval for chest pain w sobClinical: Acute chest pain an d shortness of breath. Technique: Axial contrast enhanced images from the thorac ic inlet to the upper abdomen using 100 ml Isovue 370 intravenous contrast material with coronal and sagittal re-formations. Findings: Satisfactory enhancement of the pulmonary vasculature is achieved and no filling defects are identified to sugges t pulmonary embolus. Lung woodall demonstrate chronic age-related intersti tial changes along with calcified granuloma in the left upper lobe consistent with p rior granulomas disease. Trace basilar atelectasis cannot be excluded. Thoraci c aorta is normal caliber without aneurysm or dissection. Heart and pericardium ar e normal. No pleural effusion/reaction. No pneumothorax. No adenopathy. Impres mine: No evidence for pulmonary embolus. No significant acute pleuroparenchymal or m ediastinal process. Very minimal trace basilar atelectasis versus dependent roderick nges cannot be excluded. Signed by Dane Castillo MD 08/01/2017 12:22 P DD: NAFISA 08/01/2017 1219DT: 3MUSER 08/01/2017 1222DS: NEVILLEFARGO 08/01/2017 1222 Name Value Range Interpretation Code Description Data Maryan rce(s) Supporting Document(s ) ID Date Data Source [id number] 08/01/2017 12:21:00 PM [facility] Name Value Range Interpretation Description Data Sup porting Code Source(s) Document(s ) CPK CREATINE 63 U/L 26-192 [facility] PHOSPHOKINASE [facility] CK-MB VALUE MASS 1.0 0.0-3.6 [facility] NG/ML [facility] MB/CK RELATIVE 1.58 < OR =4 [facility] INDEX [facility] DIAGNOSIS CRITERIA MMB ng/ml Relative Index (RI) NON-AMI < or = 5 N/A RODRIGEZ ZONE > 5 < or = 4 AMI > 5 > 4 TROPONIN I < 0.02 NG/ML < 0.10 [facility] Troponin I Reference Interval for Alejandro Bobo LOCI: 99th Percentile= 0.00-0.045 ng/ml Risk Stratification: <= 0.10 ng/ml Decreased Risk for Adverse Clinical Indigo nts. 0.10-1.50 ng/ml Increased Risk for Adverse Clinical Ev ents. Evaluation of additional criterion and/or repeat testing in 2-6 hours is suggested to rule out myocardial damage. >= 1.50 ng/ml Indicative of Myocardial Injury. 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 : 1955 Requested By: RASHI Holbrook Order Number: [id number] Reading MD: Shahla Hendricks Measurements Intervals [place] Rate: 49 P: 27 NC: 166 QRS: 7 QRSD: 95 T: 121 QT: 463 QTc: 418 Interpretive Statements SINUS BRADYCARD IA ST DEVIATION AND MODERATE T-WAVE ABNORMALITY, CONSIDER LATERAL ISCHEMIA SIMILAR 08/01/17 8:43 Electronically Signed On 08-02-2017 8:06:57 EST by Shahla Grider DD: TERRELL 08/01/2017 1109DT: EPIPHANY 08/02/2017 0806DS: VIANCA Fisher 08/02/2017 0806 Name Value Range Interpretation Code Description Data Maryan rce(s) Supporting Document(s ) ID Date Data Source [id number] 08/01/2017 09:27:00 AM EST [facility] Name Value Range Interpretation Description Data Sup porting Code Source(s) Document(s ) WHITE BLOOD 4.4 10 4.0-10.0 [facility] [place] RED BLOOD COUNT 4.40 10 4.00-5.[address] HEMOGLOBIN 13.0 12.0-16. N [facility] g/dl 0 [facility] HEMATOCRIT 38.1 % 36.0-47. N [address] MEAN 86.6 fl 80.0-96. N [facility] CORPUSCULAR 0 Medical VOLUME Center MEAN 29.5 pg 27.0-33. N [facility] CORPUSCULAR 0 [facility] HEMOGLOBIN Center MEAN 34.1 32.0-36. N [facility] CORPUSCULAR HGB g/dl 5 [facility] CONC Center RED CELL 13.6 % 11.5-14. N [facility] DISTRIBUTION 5 Medical WIDTH Center PLATELET COUNT, 286 10 150-450 [facility] AUTOMATED [facility] NEUTROPHILS % 54.8 % 36.0-66. N [address] LYMPH % 25.1 % 24.0-44. N [address] MONO % 15.3 % 0.0-5.0 H [facility] EOS % 3.4 % 0.0-3.0 H [facility] BASO % 0.7 % 0.0-1.0 N [facility] IMMATURE 0.7 % 0-0 [facility] GRANULOCYTE % [facility] Center NUCLEATED RED 0.0 % 0-0 [facility] BLOOD CELL % [facility] Center NEUTROPHILS # 2.4 10 1.8-7.7 N [facility] LYMPH # 1.1 10 1.5-4.5 L [facility] MONO # 0.7 10 0.0-0.8 N [facility] EOS # 0.2 10 0.0-0.50 N [facility] BASO # 0.0 10 0.0-0.2 N [facility] IMMATURE 0.0 10 0-0 [facility] GRANULOCYTE # [facility] Center ID Date Data Source [id number] 08/01/2017 09:31:00 AM [facility] Name Value Range Interpretation Description Data Sup porting Code Source(s) Document(s ) PROTHROMBIN 13.6 12.4-14. N [facility] TIME SECONDS [address] [place] [address] Center INR 1.03 [facility] THERAPUTIC HUMAN INR VALUES INDICATIONS NORMAL RANGES PROPHYLAXIS/TREATMENT OF: VENOUS THR OMBOSIS 2.0-3.0 PULMONARY EMBOLISM 2.0-3.0 PREVENTI ON OF SYSTEMIC EMBOLISM FROM: TISSUE HEART VALVES 2.0-3.0 AC [place] MYOCARDIAL INFARCTION 2.0-3.0 VALVULAR HEART DISEASE 2.0-3.0 ATRIAL FIBRILLATION 2.0-3.0 MECHANICAL VALVES(HIGH RISK) 2.5 -3.5 RECURRENT MYOCARDIAL INFARCTION 2.5-3.5 ID Date Data Source [id number] 08/01/2017 09:44:00 AM [facility] Name Value Range Interpretation Code Description Data Maryan rce(s) Supporting Document(s ) NT-PRO 86 PG/ML <125 [facility] BNP [facility] ID Date Data Source [id number] 08/01/2017 10:11:00 AM [facility] Name Value Range Interpretation Description Data Sup porting Code Source(s) Document(s ) CPK CREATINE 75 U/L 26-192 [facility] PHOSPHOKINASE [facility] CK-MB VALUE MASS 1.0 0.0-3.6 [facility] NG/ML [facility] MB/CK RELATIVE 1.33 < OR =[address] [facility] INDEX [facility] DIAGNOSIS CRITERIA MMB ng/ml Relative Index (RI) NON-AMI < or = 5 N/A RODRIGEZ ZONE > 5 < or = 4 AMI > 5 > 4 TROPONIN I < 0.02 NG/ML < 0.10 [facility] Troponin I Reference Interval for Alejandro Boob LOCI: 99th Percentile= 0.00-0.045 ng/ml Risk Stratification: <= 0.10 ng/ml Decreased Risk for Adverse Clinical Indigo nts. 0.10-1.50 ng/ml Increased Risk for Adverse Clinical Ev ents. Evaluation of additional criterion and/or repeat testing in 2-6 hours is suggested to rule out myocardial damage. >= 1.50 ng/ml Indicative of Myocardial Injury. ID Date Data Source [id number] 08/01/2017 10:11:00 AM [facility] Name Value Range Interpretation Description Data Sup porting Code Source(s) Document(s ) GLUCOSE, 91 MG/DL 80-110 [facility] FASTING [facility] BLOOD UREA 15 MG/DL 7-18 [facility] NITROGEN [facility] CREATININE FOR 0.55 0.55-1.0 [facility] GFR MG/DL 2 [facility] SODIUM LEVEL 141 136-[address] [facility] MEQ/L [facility] POTASSIUM 3.3 3.5-5.1 L [facility] SERUM MEQ/L [facility] CHLORIDE LEVEL 103 98-107 [facility] MEQ/L [facility] CARBON DIOXIDE 30 MEQ/L 21-32 N [facility] --- 08/01/17 1011 --- CO2 previously r eported as: 30 MEQ/L ANION GAP 8 MEQ/L 8-16 N [facility] nter CALCIUM LEVEL 9.3 MG/DL 8.8-10.2 [facility] ID Date Data Source [id number] 08/01/2017 08:32:00 AM [facility] Service Date and Time: 08/01/2017 0900Te chnologist: [id number] Requested: PORTABLE CHEST X-RAYReason for Patient Visit: HIG H BLOOD PRESSUREReason for Exam: CHEST PAINClinical: Chest pain . Comparis on: 12/23/2013 . Findings: The mediastinum and cardiac silhouette are s table and within normal limits for portable technique. The lung woodall are clear wi thout acute consolidation, effusion, or pneumothorax. Skeletal structures are i ntact. Impression: No acute cardiopulmonary process appreciated. Signed by Dane Castillo MD 08/01/2017 09:24 A DD: NAFISA 08/01/2017922DT: 3MUSER 08/01/2017923DS: [facility] 08/01/2017923 Name Value Range Interpretation Code Description Data Maryan rce(s) Supporting Document(s ) ID Date Data Source [id number] 08/01/2017 08:29:00 AM EST [facility] Service Date and Time: 08/01/2017 1327Te chnologist: Exam Requested: ECG WITH READING ER PHYSReason for Patient Visit: HIGH BL OOD PRESSUREReason for Exam: Chest pain Stationary ECG [place] [facility] - ED Test Date: 2017-08-01 Pat N layo: PAU YING Department: Room: - 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 : 1955 Requested By: RAHSI Holbrook Order Number: [id number] Reading MD: Shahla Hendricks Measurements Intervals [place] Rate: 50 P: 56 NC: 177 QRS: 1 QRSD: 94 T: 100 QT: 459 QTc: 420 Interpretive Statements SINUS BRADYCARD IA NONSPECIFIC T-WAVE ABNORMALITY DECREASED RATE 12/23/13 Electronically Signed On 10-02-2016 8:05:49 EST by Shahla Hendricks DD: TERRELL 842DT: EPIPHANY 08/02/2017804DS: TERRELL 08/02/2017804 Name Value Range Interpretation Code Description Data Maryan rce(s) Supporting Document(s ) ID Date Data Source [id number] 12/23/2013 03:14:00 PM EDT [facility] By: RN Time: 1415 Name Value Range Interpretation Description Data Sup porting Code Source(s) Document(s ) CPK CREATINE 61 U/L 26-192 [facility] PHOSPHOKINASE [facility] CK-MB VALUE MASS 1.5 0.0-3.6 [facility] NG/ML [facility] MB/CK RELATIVE 2.45 < OR =4 [facility] INDEX [facility] Center DIAGNOSIS CRITERIA MMB ng/ml Relative Index (RI) NON-AMI < or = 5 N/A RODRIGEZ ZONE > 5 < or = 4 AMI > 5 > 4 TROPONIN I 0.08 NG/ML < 0.10 D [facility] Troponin I Reference Interval for Alejandro Bobo LOCI: 99th Percentile= 0.00-0.045 ng/ml Risk Stratification: <= 0.10 ng/ml Decreased Risk for Adverse Clinical Indigo nts. 0.10-1.50 ng/ml Increased Risk for Adverse Clinical Ev ents. Evaluation of additional criterion and/or repeat testing in 2-6 hours is suggested to rule out myocardial damage. >= 1.50 ng/ml Indicative of Myocardial Injury. ID Date Data Source [id number] 12/23/2013 10:19:00 AM [facility] Time: 956 Time: 956 Name Value Range Interpretation Description Data Sup porting Code Source(s) Document(s ) PROTHROMBIN 12.2 12.2-14. N [facility] TIME SECONDS 2 [facility] Center INR 0.90 [facility] THERAPUTIC HUMAN INR VALUES INDICATIONS NORMAL RANGES PROPHYLAXIS/TREATMENT OF: VENOUS THR OMBOSIS 2.0-3.0 PULMONARY EMBOLISM 2.0-3.0 PREVENTI ON OF SYSTEMIC EMBOLISM FROM: TISSUE HEART VALVES 2.0-3.0 AC [place] MYOCARDIAL INFARCTION 2.0-3.0 VALVULAR HEART DISEASE 2.0-3.0 ATRIAL FIBRILLATION 2.0-3.0 MECHANICAL VALVES(HIGH RISK) 2.5 -3.5 RECURRENT MYOCARDIAL INFARCTION 2.5-3.5 ID Date Data Source [id number] 12/23/2013 10:19[facility]: 956 Time: 956 Name Value Range Interpretation Description Data Sup porting Code Source(s) Document(s ) PARTIAL 31.3 26.4-35 [facility] THROMBOPLASTIN SECONDS .2 Medical TIME Center ID Date Data Source [id number] 12/23/2013 10:23:00 AM EDT [facility] Center Time: 956 Name Value Range Interpretation Description Data Sup porting Code Source(s) Document(s ) WHITE BLOOD 8.8 5.0-10.0 N [facility] COUNT K/mm3 [facility] Center RED BLOOD COUNT 5.10 4.00-5.4 N [facility] M/mm3 0 [facility] Center HEMOGLOBIN 14.1 12.0-16. N [facility] g/dl 0 [facility] HEMATOCRIT 42.5 % 36.0-47. N [place] [address] Medical Center MEAN 83.2 fl 80.0-96. N [facility] CORPUSCULAR 0 [facility] VOLUME Center MEAN 27.7 pg 27.0-33. N [facility] CORPUSCULAR 0 [facility] HEMOGLOBIN Center MEAN 33.3 32.0-36. N [facility] CORPUSCULAR HGB g/dl 5 [facility] CONC Center RED CELL 13.7 % 11.5-14. N [facility] DISTRIBUTION 5 [facility] WIDTH Center PLATELET COUNT, 383 172-450 [facility] AUTOMATED k/mm3 [facility] NEUTROPHILS % 59.0 % 36.0-66. N [address] LYMPH % 29.2 % 24.0-44. N [address] MONO % 8.0 % 0.0-5.0 H [facility] EOS % 1.6 % 0.0-3.0 [facility] BASO % 0.5 % 0.0-1.0 [facility] LARGE UNSTAINED 1.7 % 0.0-4.0 [facility] CELL % [facility] Center NEUTROPHILS # 5.2 1.8-7.7 N [facility] K/mm3 [facility] Center LYMPH # 2.6 1.5-4.5 [facility] K/mm3 [facility] MONO # 0.7 0.0-0.8 [facility] K/mm3 [facility] EOS # 0.1 0.0-0.50 [facility] K/mm3 [facility] Center BASO # 0.1 0.0-0.2 [facility] K/mm3 [facility] LARGE UNSTAINED 0.2 0.0-0.4 [facility] CELL # K/mm3 [facility] Center ID Date Data Source [id number] 12/23/2013 10:43:00 AM EDT [facility] Time: 956 Time: 956 Time: 956 Time: 956 Time: 956 Name Value Range Interpretation Description Data Sup porting Code Source(s) Document(s ) CPK CREATINE 62 U/L 26-192 [facility] PHOSPHOKINASE [facility] CK-MB VALUE MASS 0.6 0.0-3.6 [facility] NG/ML [facility] MB/CK RELATIVE 0.96 < OR =4 [facility] INDEX [facility] DIAGNOSIS CRITERIA MMB ng/ml Relative Index (RI) NON-AMI < or = 5 N/A RODRIGEZ ZONE > 5 < or = 4 AMI > 5 > 4 ID Date Data Source [id number] 12/23/2013 10:43:00 AM [facility] Time: 956 Time: 956 Time: 956 Time: 956 Time: 956 Name Value Range Interpretation Description Data Sup porting Code Source(s) Document(s ) AST/SGOT 47 U/L 15-37 H [facility] ALT/SGPT 47 U/L 12-78 [facility] ALKALINE 84 U/L 45-[address] [facility] PHOSPHATASE [facility] BILIRUBIN,TOTA 0.4 0.2-1.0 [facility] L MG/DL [facility] BILIRUBIN,DIRE 0.1 0.0-0.[address] MG/DL [facility] TOTAL PROTEIN 8.1 6.4-8.2 [facility] GM/DL [facility] ALBUMIN 3.5 3.2-5.2 N [facility] GM/DL [facility] ALBUMIN/GLOBUL 0.76 1.00-1.9 L [facility] IN RATIO 3 [facility] Center ID Date Data Source [id number] 12/23/2013 10:43:00 AM [facility] Time: 956 Time: 956 Time: 956 Time: 956 Time: 956 Name Value Range Interpretation Description Data Sup porting Code Source(s) Document(s ) GLUCOSE, 111 70-105 H [facility] FASTING MG/DL [facility] BLOOD UREA 15 MG/DL 7-18 [facility] NITROGEN [facility] CREATININE FOR 0.7 0.6-1.[address] [facility] GFR MG/DL [facility] GLOMERULAR > 60.0 >[address] [facility] FILTRATION [facility] RATE Center Units are mL/min/1.73 m2 Chronic Kidn ey Disease Staging per NKF: Stage I & II GFR >=60 Normal to Mildly Decrease d Stage III GFR 30-59 Moderately Decreased Stage IV GFR 15-29 Severely Decreased Stage V GFR <15 Very Little GFR Left ESRD GFR <15 on [employer] SODIUM LEVEL 138 MEQ/L 136-145 [facility] POTASSIUM SERUM 3.4 MEQ/L 3.5-5.1 L [facility] CHLORIDE LEVEL 100 MEQ/L 98-107 [facility] CARBON DIOXIDE LEVEL 31 MEQ/L 21-32 [facility] CALCIUM LEVEL 9.4 MG/DL 8.5-10.1 [facility] Center ID Date Data Source [id number] 12/23/2013 10:43:00 AM [facility] Time: 956 Time: 956 Time: 956 Time: 956 Time: 956 Name Value Range Interpretation Description Data Sup porting Code Source(s) Document(s ) TROPONIN I < 0.02 < 0.[address] [facility] NG/ML [facility] Troponin I Reference Interval for Alejandro Bobo LOCI: 99th Percentile= 0.00-0.045 ng/ml Risk Stratification: <= 0.10 ng/ml Decreased Risk for Adverse Clinical Indigo nts. 0.10-1.50 ng/ml Increased Risk for Adverse Clinical Ev ents. Evaluation of additional criterion and/or repeat testing in 2-6 hours is suggested to rule out myocardial damage. >= 1.50 ng/ml Indicative of Myocardial Injury. ID Date Data Source [id number] 12/23/2013 10:43:00 AM [facility] Time: 956 Time: 956 Time: 956 Time: 956 Time: 956 Name Value Range Interpretation Code Description Data Maryan rce(s) Supporting Document(s ) LIPASE 289 U/L 73-393 [facility] ID Date Data Source [id number] 12/23/2013 10:47:00 AM EDT [facility] Time: 957 Name Value Range Interpretation Description Data Sup porting Code Source(s) Document(s ) THYROID 10.600 0.358-3. H [facility] STIMULATING uIU/ML 740 [facility] HORMONE [place] FREE T4 1.07 0.76-1.4 N [facility] NG/ML 6 Medical Center ID Date Data Source [id number] 12/23/2013 09:58:00 AM EDT [facility] Service Date and Time: [id number] nologist: Ilene Requested: Chest, 1 viewReason for Patient Visit: CHEST PAIN >30Reason for Exam: Chest PainPORTABLE CHEST, 12/23/2013, 10:12 A.M., SINGLE AP VIEW, PATIENT SITTING: Patient is a 58-year-old female emergency room patien t with chest pain. There are no comparisons. The lung woodall are cl ear. Cardiac size is normal. The ned, mediastinum, and bony thorax are unremar kable. IMPRESSION: Negative portable chest. cc: DD: [employer] [id number]: TACOS [id number]: [employer] [id number]<Electronically signed by Jarvis Rincon> [id number] Name Value Range Interpretation Code Description Data Maryan rce(s) Supporting Document(s ) Procedure Social History Code Duration Value Status Description Data Source(s ) Smoking 03/19/2020 Patient is a completed Patient is a MEDENT 12:00:00 AM former smoker [facility]) Smoking 10/26/2018 Former Smoker completed [facility] Former Smoker completed Former Smoker eCW3 ([facility]) Smoking Unknown if completed Unknown if ever eCW1 ([facility] aritan ever smoked smoked [facility]) Smoking Unknown if completed Unknown if ever eCW1 (To aritan ever smoked smoked [facility]) Smoking Unknown if completed [facility] if [facility] Daily Caffeine Does Not completed Does Not Consume MEDE NT Consume Caffeine ([facility], ) Smoking Non Smoker completed Non Smoker MEDENT ([facility], ) ETOH Use Denies completed Denies alcohol MEDENT alcohol use use ([facility]) Smoking Unknown if completed Unknown if ever eCW1 ([facility] ever smoked smoked [facility]) Exercise Joint Pain completed Joint Pain MEDENT Limitations ([facility]) knees Exercise Shortness Of completed Shortness Of MEDENT (Ca [facility]diology Limitations Breath Breath [facility]) Exercise Does housework completed Does housework MEDENT (Cardiology Type/Frequency daily daily [facility]) Smoking Patient has never completed Patient has never MEDENT (Cardiology smoked smoked [facility]) ETOH Use Does not consume completed Does not consume ME DENT (Cardiology alcohol alcohol [facility]) ADL's/IADL's Independent with completed Independent with MEDENT (Cardiology all ADL's all ADL's [facility]) Occupation Unemployed completed Unemployed MEDENT ([facility]) Lives With Alone completed Alone MEDENT ([facility]) Marital Status completed MEDENT ([facility]) Smoking Unknown if ever completed Unknown if ever eCW1 ([facility]) Vital Signs ID Date Data Source UNK Name Value Range Interpretation Code Description Data Source(s) Body mass index 30.6 kg/m2 30.6 kg/m2 MEDENT ([place] (BMI) [Ratio] [facility] , [facility]) Body height 65 [in_i] 65 [in_i] MEDENT ([facility], [facility]) 5'5" Body weight 184.00 [lb_av] 184.00 [lb_av] MEDEN T ([facility], [facility]) Body temperature 98.0 [degF] 98.0 [degF] MEDENT ([facility], [facility]) Oxygen saturation in 97 % 97 % MEDE NT ([facility] Arterial blood by Pulse C are, [facility]) oximetry Heart rate 75 /min 75 /min MEDENT ([facility], [facility]) Diastolic blood pressure 86 mm[Hg] 86 mm[Hg] MEDENT ([facility], [facility]) Systolic blood pressure 142 mm[Hg] 142 mm[Hg] M EDENT ([facility], [facility]) Diastolic blood pressure 75 mm[Hg] 75 mm[Hg] eCW3 ([facility]) Systolic blood pressure 115 mm[Hg] 115 mm[Hg] e CW3 ([facility]) Body temperature 98.3 [degF] 98.3 [degF] eCW3 ( [facility]) Heart rate 20 /min 20 /min eCW3 ([facility]) Body mass index (BMI) 32.59 kg/m2 32.59 kg/m2 e CW3 ([facility] [[facility]] [facility]) Body weight 184 [lb_av] 184 [lb_av] eCW3 ([facility]) Body height 63 [in_i] 63 [in_i] eCW3 ([facility]) Body mass index (BMI) 31.3 kg/m2 31.3 kg/m2 MED ENT ([facility] [[facility]] Practice, ) Body weight Measured 188.00 [lb_av] 188.00 [lb_ av] MEDENT ([facility], ) Body height 65 [in_i] 65 [in_i] MEDENT ([facility], ) 5'5" Diastolic blood pressure 90 mm[Hg] 90 mm[Hg] MEDENT ([facility], ) Systolic blood pressure 146 mm[Hg] 146 mm[Hg] M EDENT ([facility], ) Diastolic blood pressure 88 mm[Hg] 88 mm[Hg] eCW1 ([facility]) Systolic blood pressure 138 mm[Hg] 138 mm[Hg] e CW1 ([facility]) Body temperature 97.4 [degF] 97.4 [degF] eCW1 ( [facility]) Respiratory rate 18 /min 18 /min eCW1 ([facility] hospital) Heart rate 68 /min 68 /min eCW1 ([facility]) Body mass index (BMI) 36.95 kg/m2 36.95 kg/m2 e CW1 ([facility] [[facility]] [facility]) Body height [in_us] eCW1 ([facility]) Body weight Measured 189.2 [lb_av] 189.2 [lb_av ] eCW1 ([facility]) Body weight 187.00 [lb_av] 187.00 [lb_av] MEDEN T ([facility], [facility]) Body temperature 99.2 [degF] 99.2 [degF] MEDENT ([facility], [facility]) Oxygen saturation in 96 % 96 % MEDE NT ([facility] Arterial blood by Pulse C are, [facility]) oximetry Respiratory rate 16 /min 16 /min MEDENT ( [facility], [facility]) Heart rate 70 /min 70 /min MEDENT ([facility], [facility]) Diastolic blood pressure 84 mm[Hg] 84 mm[Hg] MEDENT ([facility], [facility]) Systolic blood pressure 124 mm[Hg] 124 mm[Hg] M EDENT ([facility], [facility]) Body weight Measured 187.00 [lb_av] 187.00 [lb_ av] MEDENT ([facility], [facility]) Deprecated Oxygen 96 % 96 % MEDENT ([facility] saturation in Capillary C are, [facility]) blood by Oximetry Body mass index (BMI) 31.6 kg/m2 31.6 kg/m2 MED ENT ([facility] [[facility]] [facility], ) Body weight Measured 190.00 [lb_av] 190.00 [lb_ av] [facility] ([facility]) Body height 65 [in_i] 65 [in_i] MEDENT ([facility]) 5'5" Diastolic blood pressure 86 mm[Hg] 86 mm[Hg] [facility] ([facility], ) Systolic blood pressure 140 mm[Hg] 140 mm[Hg] M EDENT ([facility]) Diastolic blood 77 mm[Hg] 77 mm[Hg] MEDENT ([facility] pressure--sitting of [facility]) [employer], large cuff/[place] Systolic blood pressure--sitting 130 mm[Hg] 130 mm[Hg] MEDENT ([facility]) [employer], large cuff/LA Heart rate 63 /min 63 /min MEDENT ([facility]) Body mass index (BMI) 31.1 kg/m2 31.1 kg/m2 MED ENT ([facility] [Ratio] [facility]) Body height 65 [in_i] 65 [in_i] MEDENT ([facility]) 5'5" Body weight Measured 187.00 [lb_av] 187.00 [lb_ av] MEDENT ([facility]) Body mass index (BMI) 31.3 kg/m2 31.3 kg/m2 MED ENT ([facility] [[facility]] [facility], ) Body weight Measured 188.00 [lb_av] 188.00 [lb_ av] MEDENT ([facility]) Body height 65 [in_i] 65 [in_i] MEDENT ([facility], ) 5'5" Diastolic blood pressure 72 mm[Hg] 72 mm[Hg] MEDENT ([facility]) Systolic blood pressure 129 mm[Hg] 129 mm[Hg] M EDENT ([facility]) Diastolic blood pressure 102 mm[Hg] 102 mm[Hg] eCW1 ([facility]) Systolic blood pressure 162 mm[Hg] 162 mm[Hg] e CW1 ([facility]) Body temperature 97.8 [degF] 97.8 [degF] eCW1 ( [facility]) Respiratory rate 18 /min 18 /min eCW1 ([facility] access hospital) Heart rate 66 /min 66 /min eCW1 ([facility]) Body mass index (BMI) 37.42 kg/m2 37.42 kg/m2 e CW1 ([facility] [[facility]] [facility]) Body height [in_us] eCW1 ([facility]) Body weight Measured 191.6 [lb_av] 191.6 [lb_av ] eCW1 ([facility]) ID Date Data Source [id number] 04/30/2018 10:29:28 AM [facility] Name Value Range Interpretation Code Description Data Source(s) WEIGHT RECORDED 186.4 lb 186.4 lb [facility] ID Date Data Source [id number] 02/19/2018 12:38:42 PM [facility] Name Value Range Interpretation Code Description Data Source(s) WEIGHT RECORDED 192 lb 192 lb [facility] ID Date Data Source [id number] 12/25/2017 02:58:00 PM EDT [facility] Name Value Range Interpretation Code Description Data Source(s) Height (Inches) 5 5 [facility] Height (Feet) 5 5 [facility] Height (Calculated 165.1 165.1 [facility] babin Medical Cent[facility]) Center ID Date Data Source [id number] 12/27/2017 08:55:00 AM EDT [facility] Center Name Value Range Interpretation Code Description Data Source(s) Height (Inches) 5 5 [facility] Height (Feet) 5 5 [facility] Height (Calculated 165.1 165.1 [facility] babin Medical Centimeters) Center ID Date Data Source [id number] 03/30/2018 01:42:00 AM EDT [facility] Name Value Range Interpretation Code Description Data Source(s) Temperature 97.7 97.7 [facility] ical (Fahrenheit) Center Respiratory Rate 18 18 [facility] Pulse Rate 83 83 [facility] Height (Inches) 5 5 [facility] Height (Feet) 5 5 [facility] Height (Calculated 165.1 165.1 [facility] babin Medical Centimeters) Center Blood Pressure 171 171 [facility] Systolic (Adults) Center Blood Pressure 108 108 [facility] Diastolic (Adults) Center ID Date Data Source [id number] 01/02/2018 06:45:00 AM EDT [facility] Name Value Range Interpretation Code Description Data Source(s) Temperature 36.5 36.5 [facility] ical (Calculated Celsius) Cent er Temperature 97.7 97.7 [facility] (Fahrenheit) Center Respiratory Rate 18 18 [facility] Pulse Rate 83 83 [facility] Height (Inches) 5 5 [facility] Height (Feet) 5 5 [facility] Height (Calculated 165.1 165.1 [facility] babin Medical Centimeters) Center Blood Pressure 171 171 [facility] Systolic (Adults) Center Blood Pressure 108 108 [facility] Diastolic (Adults) Center ID Date Data Source [id number] 08/09/2017 10:02:00 AM EST [facility] Name Value Range Interpretation Code Description Data Source(s) Weight (kg) 86.820 86.820 [facility] Center Weight (Calculated 75071.000 91522.000 [facility] system [facility]) Center Temperature 35.15129 35.18016 [facility] ical (Calculated Center Celsius) Temperature 96.3 96.3 [facility] (Fahrenheit) [place] Respiratory Rate 18 18 [facility] Pulse Rate 54 54 [facility] Height (Inches) 5 5 [facility] Height (Feet) 5 5 [facility] Height (Calculated 165.1 165.1 Health system Centimeters) Center Blood Pressure 151 151 [facility] Systolic (Adults) [place] Blood Pressure 98 98 [facility] Diastolic (Adults) Center ID Date Data Source [id number] 01/02/2014 04:14:00 PM EDT [facility] Center Name Value Range Interpretation Code Description Data Source(s) PREFERRED LANGUAGE? HEBREW HEBREW [facility]
[2020-06-01 12:47] LABS: ALBUMIN 3.6 g/dl (3.4-5.0); ALK PHOS 67 U/L (45-117); ANION GAP 8 MMOL/L (8-16); BILIRUBIN,TOTAL 1.1 mg/dL (0.2-1); BLOOD UREA NITROGEN 9.3 mg/dL (7-18); CALCIUM 9.1 mg/dL (8.5-10.1); CHLORIDE 104 mmol/L (98-107); CO2 30 mmol/L (21-32); CREATININE 0.6 mg/dL (0.55-1.3); GLUCOSE,RANDOM 87 mg/dL (74-106); LIPASE 142 U/L (73-393); POTASSIUM 3.6 mmol/L (3.5-5.1); SGOT/AST 58 U/L (15-37); SGPT/ALT 33 U/L (13-61); SODIUM 142 mmol/L (136-145); TOT PROT 7.7 g/dl (6.4-8.2)
[2020-06-01] MEDS ORDERED: SUCRALFATE 1 GM TABLET (FP) PO ONE (13:15)
[2020-06-01] MEDS ORDERED: SUCRALFATE 1 GM TABLET (FP) ONE (13:15)
[2020-06-01] MEDS ORDERED: MAG HYDROX/AL HYDROX/SIMETH 30 ML UNIT-DOSE CUP ONE (13:16)
--- NOTE | 2020-06-01 14:00 | EKG ---
Test Reason : Blood Pressure : / mmHG Vent. Rate : 071 BPM Atrial Rate : 071 BPM P-R Int : 162 ms QRS Dur : 086 ms QT Int : 442 ms P-R-T Axes : 011 007 038 degrees QTc Int : 480 ms NORMAL SINUS RHYTHM NORMAL ECG WHEN COMPARED WITH ECG OF 31-DEC-2018 11:23, R WAVE PROGRESSION HAS NORMALIZED Confirmed by NURIS BARCENAS MD ([id number]) on 06/01/2020 2:00:20 PM Referred By: Confirmed By:NURIS BARCENAS MD
[2020-06-01 14:03] VITALS: BP 135/91; PULSE 69
== END 2020-06-01 14:03 | disposition home or self-care (01) ==
LOC: JER 10:24
PROC: 3E033NZ Introduction of Analgesics, Hypnotics, Sedatives into Peripheral Vein, Percutaneous Approach (ICD-10-PCS; principal; 2020-06-01)
PROC: 3E033GC Introduction of Other Therapeutic Substance into Peripheral Vein, Percutaneous Approach (ICD-10-PCS; 2020-06-01)
DX: R10.13 Epigastric pain (principal)
CPT/HCPCS: 36415; 80053; 82272; 83605; 83690; 84484; 85025; 93005; 93010; 96365; 96375; 99285-25; J0131

== ENCOUNTER 2020-12-02 10:44 | Emergency (ER) | payer OTHER ==
[2020-12-02 10:55] VITALS: TEMP 98.2; BMI 29.9
[2020-12-02 12:57] LABS: BASO % 0.4 % (0-2.0); EOS % 2.9 % (0-4.5); HEMATOCRIT 37.9 % (32.4-45.2); HEMOGLOBIN 13.5 GM/dL (10.7-15.3); MCH 31.2 pg (25.7-33.7); MCHC 35.5 g/dl (32.0-36.0); MEAN CELL VOLUME 87.8 fl (80-96); MEAN PLT VOLUME 8.8 fl (7.5-11.1); MONO % 10.7 % (3.8-10.2); PLATELET COUNT 227 K/MM3 (134-434); RBC 4.31 M/mm3 (3.60-5.2); RDW 14.8 % (11.6-15.6); WHITE BLOOD COUNT 5.9 K/mm3 (4.0-10.0)
[2020-12-02 13:02] LABS: INR 1.03 (0.83-1.09); PROTHROMBIN TIME (PATIENT) 12.7 SEC (9.7-13.0)
[2020-12-02 13:04] LABS: ACTIVATED PTT 30.4 SECONDS (25.2-36.5)
[2020-12-02] MEDS ORDERED: ACETAMINOPHEN 325 MG TABLET (FP) PO ONE (13:10)
[2020-12-02 13:12] LABS: URINE APPEARANCE CLEAR; URINE BILIRUBIN 1+ (NEGATIVE); URINE COLOR DK YELLOW; URINE GLUCOSE (UA) NEGATIVE (NEGATIVE); URINE KETONE TRACE (NEGATIVE); URINE LEUK ESTERASE NEGATIVE (NEGATIVE); URINE NITRITE NEGATIVE (NEGATIVE); URINE PROTEIN NEGATIVE (NEGATIVE)
[2020-12-02 13:19] LABS: CHLORIDE 104 mmol/L (98-107); POTASSIUM 3.9 mmol/L (3.5-5.1); SODIUM 140 mmol/L (136-145)
[2020-12-02 13:22] LABS: ALBUMIN 3.7 g/dl (3.4-5.0); ANION GAP 5 MMOL/L (8-16); CALCIUM 10.1 mg/dL (8.5-10.1); CO2 31 mmol/L (21-32)
[2020-12-02 13:23] LABS: BLOOD UREA NITROGEN 12.3 mg/dL (7-18); GLUCOSE,RANDOM 97 mg/dL (74-106)
[2020-12-02 13:25] LABS: SGPT/ALT 33 U/L (13-61)
[2020-12-02 13:26] LABS: CREATININE 0.7 mg/dL (0.55-1.3); SGOT/AST 44 U/L (15-37)
[2020-12-02 13:27] LABS: TOT PROT 7.8 g/dl (6.4-8.2)
[2020-12-02 13:28] LABS: ALK PHOS 71 U/L (45-117)
[2020-12-02] MEDS ORDERED: ACETAMINOPHEN 325 MG TABLET (FP) ONE (13:28)
[2020-12-02 13:30] LABS: N-TERMINAL BNP 85.5 pg/ml (5-125)
[2020-12-02 14:30] VITALS: BP 133/70; PULSE 70
== END 2020-12-02 14:29 | disposition home or self-care (01) ==
LOC: JER 10:44
DX: M54.6 Pain in thoracic spine (principal)
CPT/HCPCS: 36415; 71045-TC-FY; 80053; 81003; 83880; 84484; 85025; 85610; 85730; 87086; 87804; 93005; 93010; 99285-25; C9803; U0003; U0005